=== PATIENT | female | born 1940 | race Caucasian/White ===

== ENCOUNTER 2017-09-18 18:52 | Inpatient (IN) ==
[2017-09-18] MEDS ORDERED: *HR* FentaNYL (PF) 100 MCG/2 ML VIAL IVP ONE ×2 (19:38→20:51)
--- NOTE | 2017-09-18 19:42 | Emergency Department Note ---
Disposition Clinical Impression: Fall Qualifiers: Encounter type: initial encounter Qualified Code(s): W19.XXXA - Unspecified fall, initial encounter Hip pain Qualifiers: Laterality: left Qualified Code(s): M25.552 - Pain in left hip Hip fracture Qualifiers: Encounter type: initial encounter Fracture type: closed Laterality: left Qualified Code(s): S72.002A - Fracture of unspecified part of neck of left femur , initial encounter for closed fracture Disposition: Admitted As Inpatient Condition: Fair Referrals: Ely Dowling CNP [Primary Care Provider] - Forms: ED Satisfaction Letter Time of Disposition: 20:44 Fall HPI - General Chief Complaint: ED Fall Stated Complaint: Fall Time Seen by Provider: 09/18/17 18:58 Source: patient Mode of arrival: EMS Limitations: no limitations Nursing Notes Reviewed: Yes Vital Signs Reviewed: Yes - History of Present Illness HPI Narrative: 77-year-old female on Plavix presents for evaluation after mechanical fall. Patient states that she fell prior to arrival around 5:00 this evening. She states her left knee gave out. Patient notes ground-level fall landing on her left hip. Patient denies any blunt head injury. Patient denies any loss of conscious. Patient states he has had difficulty ambulating with the left hip. Patient notes pain on the lateral aspect with radiation to her back. Patient denies any numbness or tingling of the legs. Patient denies any head neck or back pain. Patient denies any knee pain. Patient denies any prodromal symptoms such as chest pain or shortness of breath. - Related Data Home Medications Medication Instructions Recorded Confirmed Clopidogrel [Plavix] 75 mg PO DAILY 05/09/15 03/20/16 Cyanocobalamin (B-12) [Vitamin B12] 1,000 mcg PO DAILY 05/09/15 03/20/16 Isosorbide MONOnitrate (24 HR) 30 mg PO DAILY 05/09/15 03/20/16 [Imdur] Multivitamin [Flintstones] 1 each PO DAILY 05/09/15 03/20/16 Albuterol Sulfate [Albuterol 2 puff IH Q4H PRN 03/15/16 03/20/16 Inhaler] Budesonide/Formoterol 80/4.5 2 puff IH BID 03/15/16 03/20/16 [Symbicort 80/4.5] Cholecalciferol (Vitamin D3) 50,000 unit PO WE 03/15/16 03/20/16 [Vitamin D3] Esomeprazole Magnesium [Nexium] 40 mg PO DAILY 03/15/16 03/20/16 Gabapentin [Neurontin] 300 mg PO BID 03/15/16 03/20/16 Lidocaine OINT 1 appl TP TID PRN 03/15/16 03/20/16 Montelukast [Singulair] 10 mg PO DAILY 03/15/16 03/20/16 OxyCODONE Immed Rel [Roxicodone 10 10 mg PO Q6H PRN 03/15/16 03/20/16 MG] Quetiapine Fumarate [Seroquel] 100 mg PO HS 03/15/16 03/20/16 Tizanidine HCl [Zanaflex] 4 mg PO HS 03/15/16 03/20/16 Previous Rx's Medication Instructions Recorded Carvedilol [Coreg] 6.25 mg PO BIDWM #60 tablet 03/22/16 Lisinopril-HCTZ 10-12.5 [Prinzide 1 each PO DAILY #30 tablet 03/22/16 10-12.5] Venlafaxine XR (24 HR) [Effexor Xr] 150 mg PO DAILY cap.er.24h 03/22/16 predniSONE [PredniSONE] 60 mg PO DAILY #9 tablet 04/07/16 PredniSONE [Deltasone] 40 mg PO DAILY #10 tablet 09/04/17 Allergies Allergy/AdvReac Type Severity Reaction Status Date / Time Penicillins Allergy Itching Verified 09/18/17 21:25 Tetracycline Allergy Hallucinati Verified 09/18/17 21:25 ng diazepam [From Valium] AdvReac Unconscious Verified 09/18/17 21:25 hydrocodone [From Vicodin] AdvReac See Verified 09/18/17 21:25 Comments ibuprofen AdvReac Nausea Verified 09/18/17 21:25 simvastatin AdvReac See Verified 09/18/17 21:25 Comments ivp dye Allergy Swelling Uncoded 09/18/17 21:25 of Lip/Tongue/Throat All systems ED: reviewed and negative except as stated. Constitutional: Denies: fever Cardiovascular: Denies: chest pain Respiratory: Denies: cough, dyspnea Gastrointestinal: Denies: abdominal pain, nausea, vomiting Fall PMH - Past Medical History Medical history: Reports: COPD, coronary artery disease, CVA, DVT, GERD, hyperlipidemia, hypertension, TIA Surgical history: Reports: appendectomy, cholecystectomy, hysterectomy Psychiatric history: Reports: anxiety, depression LEGAL ANALYST history: Reports: no LEGAL ANALYST history - Social History Smoking Status: Former smoker Alcohol use: Reports: none Drug use: Reports: none Physical Exam - General Limitations: no limitations General appearance: alert, in no apparent distress - Head Head exam: atraumatic, normocephalic, normal inspection - Eye Eye exam: Present: normal appearance, PERRL, EOMI - ENT ENT exam: normal exam, normal oropharynx, mucous membranes moist - Neck Neck exam: Present: normal inspection - Chest Chest inspection: Present: normal inspection, symmetric chest wall rise - Respiratory Respiratory exam: Present: normal lung sounds bilaterally - Cardiovascular Cardiovascular exam: Present: regular rate, normal rhythm. Absent: systolic murmur - Abdominal Exam Abdominal exam: Present: soft, Non-Tender - Expanded Upper Extremity Exam Shoulder exam: Present: normal inspection Arm exam: Present: normal inspection Elbow exam: Present: normal inspection Forearm/Wrist exam: Present: normal inspection Hand exam: Present: normal inspection Vascular exam: Normal: capillary refill - Expanded Lower Extremity Exam Hip/Pelvis exam: Present: normal inspection, tenderness (Lateral aspect of the left hip.), other (Pain with logroll of the left leg). Absent: swelling, ecchymosis, deformity Upper leg exam: Present: normal inspection. Absent: swelling, ecchymosis, deformity Knee exam: Present: normal inspection. Absent: tenderness, swelling, abrasion, ecchymosis Lower leg exam: Present: normal inspection Ankle exam: Present: normal inspection Neurovascular/Tendon exam: Present: normal capillary refill. Absent: pulse deficit, motor deficit, sensory deficit - Back Exam Back exam: Present: normal inspection. Absent: tenderness, vertebral tenderness - Neurological Exam Neurological exam: Present: alert, oriented X3, CN II-XII intact - Skin Skin exam: Present: warm, dry, intact, normal color Course Course Narrative: Patient seen and examined. Patient does have reducible tenderness of the lateral aspect the left hip. Patient is neurovascularly intact. Patient will get CT scan of the head and cervical spine given the age and being on Plavix. Patient also get CT of the pelvis given the high likelihood of probable hip fracture given the patient's body habitus. - Reevaluation(s) Reevaluation #1: Patient seen and examined. Patient left care as discussed. Patient will be admitted to hospital service with orthopedic consult. Patient will be given appropriate pain medication. Patient's neurovascularly intact distally. Time: 20:51 - Consultations Consultation #1: Patient case was discussed with the on-call orthopedic surgeon who states that he will likely fix the hip tomorrow. Recommends nothing by mouth after midnight. Time: 20:43 Vital Signs Temperature 99.2 F 09/18/17 18:57 Pulse Rate 89 09/18/17 18:57 Respiratory Rate 18 09/18/17 18:57 Blood Pressure 227/100 09/18/17 18:57 O2 Sat by Pulse Oximetry 94 09/18/17 18:57 Temperature 99.2 F 09/18/17 18:57 Pulse Rate 89 09/18/17 18:57 Respiratory Rate 18 09/18/17 18:57 Blood Pressure 227/100 09/18/17 18:57 O2 Sat by Pulse Oximetry 94 09/18/17 18:57 Oxygen Delivery Oxygen Delivery Room Air Fall - [facility] Narrative Medical decision making narrative: Patient presents after mechanical fall. Patient does have evidence of hip fracture on CT scan. Patient will need operative intervention. Case was discussed with the on-call orthopedic doctor. Patient will be admitted to the hospitalist service. Patient will get basic labs including type and screen as well as a 12-lead EKG for preop. Recommends nothing by mouth after midnight. It appears that the patient had a mechanical fall and was not related any syncopal episode. - Radiology Data Radiology results reviewed: Yes I reviewed the patient's radiology results. Cervical Spine CT 09/18/17 19:37 IMPRESSION: No acute abnormality of the cervical spine. Degenerative changes at C5-6 and C6-7. D/ / Brad Chase MD / Brad Chase MD Interpreting Provider: Brad Chase MD Femur X-Ray 09/18/17 19:37 IMPRESSION: Acute nondisplaced left subcapital femoral neck fracture. D/ / Lloyd Tao MD / Lloyd Tao MD Interpreting Provider: Lloyd Tao MD Head CT 09/18/17 19:37 IMPRESSION: No acute intracranial abnormality. Senescent changes. D/ / Triston De Jesus / Triston De Jesus Interpreting Provider: Triston De Jesus Pelvis CT 09/18/17 19:37 IMPRESSION: Examination is slightly limited by patient's body habitus, osteopenia and some streak artifact from lumbosacral fusion hardware. Mildly impacted acute subcapital fracture of the proximal left femur. D/ / 09/18/2017 20:38:28 Jaxon Connolly MD / neo Interpreting Provider: Jaxon Connolly MD - EKG Data EKG attestation: Yes I reviewed and interpreted this EKG. EKG shows normal: sinus rhythm Rate: normal Rhythm: NSR Polson/QRS: normal Interpretation: no acute changes, nonspecific ST-T wave changes S.B.A.R. - S.B.A.RRavinder Situation: Demographics Background: Presenting Complaint Assessment: Vital Signs, Patient/Family Expectation Recommendation: Barrier(s) to disposition, Recommendation based on pending studies, treatments, or consults S.B.A.RRavinder Report Given to: Dr. Lyons SRavinderBRavinderAPuma Repor Time: 21:00
--- NOTE | 2017-09-18 20:06 | Emergency Department Note ---
Disposition Clinical Impression: Hip fracture Fall Qualifiers: Encounter type: initial encounter Qualified Code(s): W19.XXXA - Unspecified fall, initial encounter Hip pain Qualifiers: Laterality: left Qualified Code(s): M25.552 - Pain in left hip Disposition: Admitted As Inpatient Condition: Fair Referrals: Ely Dowling CNP [Primary Care Provider] - Forms: ED Satisfaction Letter General Adult HPI - General Chief complaint: ED Fall Stated complaint: Fall Time Seen by Provider: 09/18/17 18:58 Source: patient Mode of arrival: EMS Limitations: no limitations Nursing Notes Reviewed: Yes Vital Signs Reviewed: Yes - History of Present Illness Pain Scale: 8 - Related Data Home Medications Medication Instructions Recorded Confirmed Clopidogrel [Plavix] 75 mg PO DAILY 05/09/15 03/20/16 Cyanocobalamin (B-12) [Vitamin B12] 1,000 mcg PO DAILY 05/09/15 03/20/16 Isosorbide MONOnitrate (24 HR) 30 mg PO DAILY 05/09/15 03/20/16 [Imdur] Multivitamin [Flintstones] 1 each PO DAILY 05/09/15 03/20/16 Albuterol Sulfate [Albuterol 2 puff IH Q4H PRN 03/15/16 03/20/16 Inhaler] Budesonide/Formoterol 80/4.5 2 puff IH BID 03/15/16 03/20/16 [Symbicort 80/4.5] Cholecalciferol (Vitamin D3) 50,000 unit PO WE 03/15/16 03/20/16 [Vitamin D3] Esomeprazole Magnesium [Nexium] 40 mg PO DAILY 03/15/16 03/20/16 Gabapentin [Neurontin] 300 mg PO BID 03/15/16 03/20/16 Lidocaine OINT 1 appl TP TID PRN 03/15/16 03/20/16 Montelukast [Singulair] 10 mg PO DAILY 03/15/16 03/20/16 OxyCODONE Immed Rel [Roxicodone 10 10 mg PO Q6H PRN 03/15/16 03/20/16 MG] Quetiapine Fumarate [Seroquel] 100 mg PO HS 03/15/16 03/20/16 Tizanidine HCl [Zanaflex] 4 mg PO HS 03/15/16 03/20/16 Previous Rx's Medication Instructions Recorded Carvedilol [Coreg] 6.25 mg PO BIDWM #60 tablet 03/22/16 Lisinopril-HCTZ 10-12.5 [Prinzide 1 each PO DAILY #30 tablet 03/22/16 10-12.5] Venlafaxine XR (24 HR) [Effexor Xr] 150 mg PO DAILY cap.er.24h 03/22/16 predniSONE [PredniSONE] 60 mg PO DAILY #9 tablet 04/07/16 PredniSONE [Deltasone] 40 mg PO DAILY #10 tablet 09/04/17 Allergies Allergy/AdvReac Type Severity Reaction Status Date / Time Penicillins Allergy Itching Verified 08/27/16 18:15 Tetracycline Allergy Hallucinati Verified 08/27/16 18:15 ng diazepam [From Valium] AdvReac Unconscious Verified 08/27/16 18:15 hydrocodone [From Vicodin] AdvReac See Verified 08/27/16 18:15 Comments ibuprofen AdvReac Nausea Verified 08/27/16 18:15 simvastatin AdvReac See Verified 08/27/16 18:15 Comments ivp dye Allergy Swelling Uncoded 08/27/16 18:15 of Lip/Tongue/Throat Constitutional: Denies: fever Cardiovascular: Denies: chest pain Respiratory: Denies: cough, dyspnea Gastrointestinal: Denies: abdominal pain, nausea, vomiting Past Medical History - Past Medical History Medical history: Reports: COPD, coronary artery disease, CVA, DVT, GERD, hyperlipidemia, hypertension, TIA Surgical history: Reports: appendectomy, cholecystectomy, hysterectomy Psychiatric history: Reports: anxiety, depression REAL ESTATE PROFESSIONAL history: Reports: no REAL ESTATE PROFESSIONAL history - Social History Smoking Status: Former smoker Smokeless Tobacco Status: No Alcohol use: Reports: none Drug use: Reports: none Physical Exam - General Limitations: no limitations General appearance: alert, in no apparent distress Course Vital Signs Temperature 99.2 F 09/18/17 18:57 Pulse Rate 89 09/18/17 18:57 Respiratory Rate 18 09/18/17 18:57 Blood Pressure 227/100 09/18/17 18:57 O2 Sat by Pulse Oximetry 94 09/18/17 18:57 Temperature 99.2 F 09/18/17 18:57 Pulse Rate 89 09/18/17 18:57 Respiratory Rate 18 09/18/17 18:57 Blood Pressure 227/100 09/18/17 18:57 O2 Sat by Pulse Oximetry 94 09/18/17 18:57 Oxygen Delivery Oxygen Delivery Room Air Attestation Statement - Attestation Attestation: I, Ravinder Yañez MD, personally evaluated this patient and discussed their management with the resident physician. I reviewed the resident's note and agree with the documented findings, medical decision making, and plan of care. 77-year-old female presents to the emergency department with a complaint that she lost her balance and fell about 1.5-2 hours prior to arrival in the emergency department. She states her left knee just locked up causing her to fall onto her left hip. She complains of pain in the left hip and some pain in the left knee. She denies hitting her head. No loss of consciousness. She is on Plavix. No other pain or injury. No loss of feeling in the lower extremity. On examination patient is a well-developed well-nourished well-appearing elderly female in no acute distress. She is alert and oriented 3. There is no cyanosis or diaphoresis. Breath sounds are equal bilaterally. Heart regular rate and rhythm. Abdomen soft and nontender with normal bowel sounds. There is tenderness to palpation over the left hip, primarily over the posterior aspect. No shortening or external rotation. Neurovascular function intact distally with good dorsiflexion and plantarflexion of feet and toes. Sensation symmetrical. CT of the head and cervical spine was negative. CT of the pelvis shows an acute mildly impacted subcapital fracture of the proximal left femur. Dr. Bolanos discussed with the orthopedist solution architect, Dr. Fuentes. The hospitalist, Dr. Lyons, was consulted and accepted admission of the patient.
[2017-09-18 21:29] LABS: Basophils # 0.1 K/mcL (0.0-0.2); Basophils % 0.4 %; Eosinophils # 0.1 K/mcL (0.0-0.6); Eosinophils % 0.6 %; Hematocrit 48.7 % (35.3-44.9); Hemoglobin 15.5 g/dL (11.5-15.4); Immature Granulocytes % 1.1 % (0-4); Lymphocytes # 1.7 K/mcL (0.6-4.6); Mean Corpuscular HGB Conc 31.8 g/dL (31.6-35.5); Mean Corpuscular Hemoglobin 28.8 pg (28.0-33.3); Mean Corpuscular Volume 90.5 fL (83.0-100.0); Mean Platelet Volume 11.3 fL (9.4-12.4); Monocytes # 0.9 K/mcL (0.0-1.3); Neutrophils # 12.5 K/mcL (1.6-8.9); Platelet Count 183 K/mcL (140-400); Red Blood Count 5.38 M/mcL (3.82-4.97); Red Cell Distribution Width 13.2 % (11.5-14.5); Segmented Neutrophils % 80.9 %
[2017-09-18 21:46] LABS: BUN/Creatinine Ratio 15 (6-26); Blood Urea Nitrogen 11 mg/dL (8-23); Calcium 9.1 mg/dL (8.6-10.3); Carbon Dioxide 27 mEq/L (23-29); Chloride 106 mEq/L (98-107); Glucose 133 mg/dL (70-105); Osmolality,Calculated 295 (280-300); Potassium 3.8 mEq/L (3.5-5.1); Sodium 142 mEq/L (136-145); eGFR For African Americans > 60 (> 60); eGFR For Non-African Americans > 60 (> 60)
--- NOTE | 2017-09-18 22:47 | Internal Med History&Physical ---
Date of Encounter: 09/18/17 Time of Encounter: 22:44 Internal Medicine - H&P: HPI Chief complaint: chest pain Admitted From: Emergency Dept Plans for Post Hospital Care: Home History of present illness: Ms. Pickett is a 77 year old female Patient with history of hypertension, COPD, TIA, obesity, CAD, DVT and GERD patient had a mechanical fall she says her knee give out and that she fell no syncope no loss of consciousness she came into the emergency room complaining of her left hip pain CT evaluation shows left hip fracture patient is admitted and already on scheduled for surgery tomorrow denies any chest pain no shortness of breath Past Med Surg Social Fam HX - Past Medical History Medical history: COPD, coronary artery disease, CVA, DVT, GERD, hyperlipidemia, hypertension, TIA Psychiatric history: anxiety, depression - Past Surgical History Surgical History: appendectomy, cholecystectomy, hysterectomy - Social History Smoking Status: Former smoker Smokeless Tobacco Status: No Alcohol use: none Drug use: none - Family History Mother Hx Family Cardiac Disorders: Yes Hx Family Cancer: Yes (colon) Father Hx Family Cardiac Disorders: Yes Daughter Hx Family Cardiac Disorders: Yes (HTN) Internal Medicine - H&P: Meds Clopidogrel [Plavix] 75 mg PO DAILY 05/09/15 [History] Albuterol Sulfate [Albuterol Inhaler] 2 puff IH Q4H PRN 03/15/16 [History] Montelukast [Singulair] 10 mg PO DAILY 03/15/16 [History] Quetiapine Fumarate [Seroquel] 100 mg PO HS 03/15/16 [History] Tizanidine HCl [Zanaflex] 4 mg PO HS 03/15/16 [History] Albuterol Neb [Proventil Neb] 1.5 ml IH Q4H PRN 09/18/17 [History] Carbidopa/Levodopa [Carbidopa-Levo 25-100 mg Odt] 1 tab PO TID 09/18/17 [History ] Carvedilol [Coreg] 6.25 mg PO DAILY 09/18/17 [History] Ergocalciferol (VITAMIN D2) [Vitamin D2] 50,000 unit PO WE 09/18/17 [History] Gabapentin [Neurontin] 400 mg PO TID 09/18/17 [History] Mirtazapine [Remeron] 30 mg PO HS 09/18/17 [History] Morphine Sulfate [Arymo ER] 60 mg PO BID 09/18/17 [History] Nitroglycerin [Nitrostat] 0.4 mg SL Q5M PRN 09/18/17 [History] Umeclidinium Brm/Vilanterol Tr [Anoro Ellipta 62.5-25 Mcg INH] 1 puff IH DAILY 09/18/17 [History] cloNIDine HCl [Clonidine HCl] 0.3 mg PO DAILY 09/18/17 [History] hydroCHLOROthiazide [Hydrochlorothiazide] 25 mg PO DAILY 09/18/17 [History] 3 Allergy/AdvReac Type Severity Reaction Status Date / Time Penicillins Allergy Itching Verified 09/18/17 21:25 Tetracycline Allergy Hallucinati Verified 09/18/17 21:25 ng diazepam [From Valium] AdvReac Unconscious Verified 09/18/17 21:25 hydrocodone [From Vicodin] AdvReac See Verified 09/18/17 21:25 Comments ibuprofen AdvReac Nausea Verified 09/18/17 21:25 simvastatin AdvReac See Verified 09/18/17 21:25 Comments ivp dye Allergy Swelling Uncoded 09/18/17 21:25 of Lip/Tongue/Throat All Systems PM: A 10-system review of systems was performed and is negative for pertinent findings except as documented above in the HPI. - Constitutional Vitals: Temp Pulse Resp BP Pulse Ox 99.2 F 96 20 178/81 93 09/18/17 18:57 09/18/17 22:22 09/18/17 22:22 09/18/17 22:22 09/18/17 22:22 General appearance: Present: mild distress - Head Head exam: Present: atraumatic, normocephalic - Eye Eye exam: Present: PERRL, conjuntiva pink, sclera anicteric Pupils: Present: PERRL - Neck Neck exam general surgery: Present: supple, trachea midline. Absent: lymphadenopathy - Respiratory Respiratory exam: Present: CTAB. Absent: accessory muscle use, rales, rhonchi, wheezes - Cardiovascular Cardiovascular exam: Present: RRR, +S1, +S2. Absent: diastolic murmur, gallop, rubs, systolic murmur - GI/Abdominal GI/Abdominal exam: Present: normal bowel sounds, soft, no peritoneal signs. Absent: distended, tenderness - Extremities Exam Extremities exam: Present: tenderness Internal Med - H&P Results - Labs CBC & Chem 7: 09/18/17 21:05 09/18/17 21:05 - Assessment and plan (1) HTN (hypertension) Current Visit: Yes Status: Chronic Qualifiers: Hypertension type: essential hypertension Qualified Code(s): I10 - Essential (primary) hypertension (2) Depression Current Visit: No Status: Chronic Assessment and plan: Chronic resume home medication Qualifiers: Depression Type: unspecified Qualified Code(s): F32.9 - Major depressive disorder, single episode, unspecified (3) COPD (chronic obstructive pulmonary disease) Current Visit: No Status: Chronic Assessment and plan: Chronic no active wheezing with resume home medication Qualifiers: COPD type: chronic bronchitis Chronic bronchitis type: simple Qualified Code(s): J41.0 - Simple chronic bronchitis (4) Obesity (BMI 30.0-34.9) Current Visit: No Status: Chronic Assessment and plan: Chronic due to excessive caloric intake (5) Hip fracture Current Visit: Yes Status: Acute Assessment and plan: Hip fracture follow mechanical fall orthopedic scheduled for surgery tomorrow Qualifiers: Encounter type: initial encounter Fracture type: closed Laterality: left Qualified Code(s): S72.002A - Fracture of unspecified part of neck of left femur, initial encounter for closed fracture (6) Hypertensive urgency Current Visit: No Status: Acute Assessment and plan: Probably contribution of for acute pain we will resume home medication - Time Spent With Patient Total time spent is greater than 50% in coordination of care (as documented) at patient's floor/unit and/or counseling patient:
[2017-09-18] MEDS ORDERED: Naloxone 0.4 MG/ML INJ IVP PRN (22:50)
[2017-09-18] MEDS ORDERED: Acetaminophen 325 MG TABLET PO PRN (22:50)
[2017-09-19] MEDS: traMADol 50 MG TABLET PO PRN ×3 (00:15→18:29)
[2017-09-19] MEDS: 0.9 % Sodium Chloride 1,000 ML IVC SCH (00:15)
[2017-09-19 00:21] LABS: Bilirubin,Urine Negative (Negative); Blood,Urine Moderate (Negative); Clarity,Urine Clear (Clear); Color,Urine Yellow (Yellow); Glucose,Urine (UA) Normal (Normal); Ketones,Urine Negative (Negative); Leukocyte Esterase,Urine Negative (Negative); Nitrite,Urine Negative (Negative); Protein,Urine Negative (Neg-Trace); Specific Gravity,Urine 1.014 (1.010-1.025); Urobilinogen,Urine Normal (Normal)
[2017-09-19 00:42] LABS: Bacteria,Urine Few per hpf (None-Few); WBC,Urine 0-3 per hpf (0-3)
[2017-09-19] MEDS: *HR* Morphine Sulfate SR (12 HR) 30 MG TABLET.ER PO SCH ×3 (01:29→20:19)
[2017-09-19 02:13] LABS: Hemoglobin 15.2 g/dL (11.5-15.4); Mean Corpuscular Hemoglobin 29.2 pg (28.0-33.3); Mean Corpuscular Volume 88.3 fL (83.0-100.0); Mean Platelet Volume 11.4 fL (9.4-12.4); Platelet Count 175 K/mcL (140-400); Red Blood Count 5.21 M/mcL (3.82-4.97); Red Cell Distribution Width 13.1 % (11.5-14.5)
[2017-09-19 02:32] LABS: Alanine Aminotransferase 18 Units/L (7-52); Albumin/Globulin Ratio 1.6 (1.1-2.2); Alkaline Phosphatase 74 Units/L (34-104); Aspartate Amino Transferase 18 Units/L (13-39); BUN/Creatinine Ratio 18 (6-26); Bilirubin,Total 0.5 mg/dL (0.3-1.0); Blood Urea Nitrogen 12 mg/dL (8-23); Calcium 9.2 mg/dL (8.6-10.3); Carbon Dioxide 24 mEq/L (23-29); Chloride 105 mEq/L (98-107); Chol/HDL Ratio 5.1 (0-4.9); Cholesterol 164 mg/dL (< 200); Globulin 2.5 g/dL (2.4-3.5); Glucose 159 mg/dL (70-105); HDL Cholesterol 32 mg/dL (40-59); LDL Cholesterol,Calculated 94 mg/dL (0-99); Magnesium 1.8 mg/dL (1.6-2.6); Osmolality,Calculated 293 (280-300); Potassium 3.3 mEq/L (3.5-5.1); Sodium 140 mEq/L (136-145); Total Protein 6.5 g/dL (6.4-8.9); Triglycerides 192 mg/dL (< 150); eGFR For African Americans > 60 (> 60); eGFR For Non-African Americans > 60 (> 60)
[2017-09-19] MEDS: Ketorolac 30 MG/ML VIAL IVP PRN ×2 (04:08→12:22)
[2017-09-19] MEDS ORDERED: *HR* HYDROmorphone 2 MG TABLET PO ONE (05:34)
[2017-09-19] MEDS ORDERED: *HR* Enoxaparin 40 MG/0.4 ML SYRINGE SQ SCH (06:00)
--- NOTE | 2017-09-19 07:33 | Orthopedic Consult Note ---
Date of Encounter: 09/19/17 Time of Encounter: 07:31 Assessment and Plan (1) Hip fracture Current Visit: Yes Status: Acute I did have a long discussion with the patient regarding the diagnosis. She has a left subcapital femoral neck fracture. Recommendation is percutaneous screw fixation in hopes of stabilizing the fracture in relieving her pain. The risks discussed included but were not limited to stiffness, bleeding, infection, blood clots, damage to neurovascular structures, tendons, ligaments, and bone. Also discussed was the risk of continued symptoms and possible need for further procedures. I did discuss the anesthesia risks including stroke, heart attack, and . She is aware of the risk of malunion, nonunion, avascular necrosis, and the need for prosthetic replacement in the future. I did discuss this fall with the patient in simple terms and she wished to proceed and consent was obtained. Qualifiers: Encounter type: initial encounter Fracture type: closed Laterality: left Qualified Code(s): S72.002A - Fracture of unspecified part of neck of left femur, initial encounter for closed fracture History of Present Illness HPI: Ms. Pickett is a 77 year old female who is an independent ambulator. She said her left knee gave out causing her to fall yesterday which resulted in left hip and groin pain. She seen in the emergency department where imaging studies revealed a nondisplaced subcapital femoral neck fracture. She is admitted to the hospitalist with anticipation of needing hip fixation. I am consulted to assist in the evaluation and management of the patient. On my evaluation the patient complains of isolated achy pain localized to the left hip and groin region. She denies any other pain. No associated numbness or tingling. Pain is worse with movement and better with rest. No other modifying factors. Past Med Surg Social Fam HX - Past Medical History Medical history: COPD, coronary artery disease, CVA, DVT, GERD, hyperlipidemia, hypertension, TIA Psychiatric history: anxiety, depression - Past Surgical History Surgical History: appendectomy, cholecystectomy, hysterectomy - Social History Smoking Status: Former smoker Smokeless Tobacco Status: No Alcohol use: none Drug use: none - Family History Mother Living Status: Age at : 64 Cause of : cancer, heart Hx Family Cardiac Disorders: Yes Hx Family Cancer: Yes (colon) Father Living Status: Age at : 59 Cause of : mi Hx Family Cardiac Disorders: Yes Daughter Hx Family Cardiac Disorders: Yes (HTN) Medications and Allergies Clopidogrel [Plavix] 75 mg PO DAILY 05/09/15 [History] Albuterol Sulfate [Albuterol Inhaler] 2 puff IH Q4H PRN 03/15/16 [History] Montelukast [Singulair] 10 mg PO DAILY 03/15/16 [History] Quetiapine Fumarate [Seroquel] 100 mg PO HS 03/15/16 [History] Tizanidine HCl [Zanaflex] 4 mg PO HS 03/15/16 [History] Albuterol Neb [Proventil Neb] 1.5 ml IH Q4H PRN 09/18/17 [History] Carbidopa/Levodopa [Carbidopa-Levo 25-100 mg Odt] 1 tab PO TID 09/18/17 [History ] Carvedilol [Coreg] 6.25 mg PO DAILY 09/18/17 [History] Ergocalciferol (VITAMIN D2) [Vitamin D2] 50,000 unit PO WE 09/18/17 [History] Gabapentin [Neurontin] 400 mg PO TID 09/18/17 [History] Mirtazapine [Remeron] 30 mg PO HS 09/18/17 [History] Morphine Sulfate [Arymo ER] 60 mg PO BID 09/18/17 [History] Nitroglycerin [Nitrostat] 0.4 mg SL Q5M PRN 09/18/17 [History] Umeclidinium Brm/Vilanterol Tr [Anoro Ellipta 62.5-25 Mcg INH] 1 puff IH DAILY 09/18/17 [History] cloNIDine HCl [Clonidine HCl] 0.3 mg PO DAILY 09/18/17 [History] hydroCHLOROthiazide [Hydrochlorothiazide] 25 mg PO DAILY 09/18/17 [History] 3 Allergy/AdvReac Type Severity Reaction Status Date / Time Penicillins Allergy Itching Verified 09/18/17 21:25 Tetracycline Allergy Hallucinati Verified 09/18/17 21:25 ng diazepam [From Valium] AdvReac Unconscious Verified 09/18/17 21:25 hydrocodone [From Vicodin] AdvReac See Verified 09/18/17 21:25 Comments ibuprofen AdvReac Nausea Verified 09/18/17 21:25 simvastatin AdvReac See Verified 09/18/17 21:25 Comments ivp dye Allergy Swelling Uncoded 09/18/17 21:25 of Lip/Tongue/Throat All Systems Reviewed: The remainder of the systems were reviewed and are negative Physical Exam - Constitutional Vitals: Temp Pulse Resp BP Pulse Ox 98.2 F 91 18 124/66 92 09/19/17 04:57 09/19/17 04:24 09/19/17 04:24 09/19/17 04:24 09/19/17 04:24 Constitutional -Vitals reviewed -The patient is well developed and well nourished. -Mood is pleasant. -The patient is well groomed. Psychiatric -The patient is fully alert and oriented x 3. Respiratory: -Respiratory effort normal Abdomen: -Soft abdomen -Non tender -Non distended: Left upper extremity: -No deformities. The overlying skin is intact. No obvious signs of acute trauma. -No tenderness to palpation throughout. -No significant pain with passive motion of the shoulder, elbow, wrist, and fingers within the limits of the bed. -Able to make an "OK" sign, cross the index and long fingers, and extend the thumb. -Sensation grossly intact to light touch throughout the median, radial, and ulnar distributions. -Radial pulse is present; Fingers have good capillary refill. Right upper extremity: -No deformities. The overlying skin is intact. No obvious signs of acute trauma. -No tenderness to palpation throughout. -No significant pain with passive motion of the shoulder, elbow, wrist, and fingers within the limits of the bed. -Able to make an "OK" sign, cross the index and long fingers, and extend the thumb. -Sensation grossly intact to light touch throughout the median, radial, and ulnar distributions. -Radial pulse is present; Fingers have good capillary refill. Left lower extremity: -No deformities. The overlying skin is intact. No obvious signs of acute trauma. -There is tenderness in the groin region as well as the proximal lateral thigh. -I did not range the hip due to the known fracture. -No tenderness along the distal thigh, leg, ankle, foot, or toes. -Able to dorsiflex and plantarflex the ankle and toes. -Sensation is grossly intact to light touch throughout the sural, saphenous, superficial peroneal, and deep peroneal distributions. -Toes have good capillary refill. Right lower extremity: -No deformities. The overlying skin is intact. No obvious signs of acute trauma. -No tenderness to palpation throughout. -No pain with passive motion of the hip, knee, ankle, and toes within the limits of the bed. -No pain with axial loading of the thigh. -Able to dorsiflex and plantarflex the ankle and toes. -Sensation is grossly intact to light touch throughout the sural, saphenous, superficial peroneal, and deep peroneal distributions. -Toes have good capillary refill. Diagnostic Imaging: I did personally review and interpret the CT scan of the left hip which shows a subcapital impacted femoral neck fracture. Results - Labs Result Diagrams: 09/19/17 01:25 09/19/17 01:25 Labs: Abnormal lab results WBC 14.3 K/mcL (4.3-11.1) H 09/19/17 01:25 RBC 5.21 M/mcL (3.82-4.97) H 09/19/17 01:25 Hct 46.0 % (35.3-44.9) H 09/19/17 01:25 Neutrophils # 12.5 K/mcL (1.6-8.9) H 09/18/17 21:05 Potassium 3.3 mEq/L (3.5-5.1) L 09/19/17 01:25 Glucose 159 mg/dL (70-105) H 09/19/17 01:25 Triglycerides 192 mg/dL (< 150) H 09/19/17 01:25 VLDL Cholesterol, Calc 38 mg/dL (< 31) H 09/19/17 01:25 HDL Cholesterol 32 mg/dL (40-59) L 09/19/17 01:25 Cholesterol/HDL Ratio 5.1 (0-4.9) H 09/19/17 01:25 Urine Blood Moderate (Negative) H 09/19/17 00:03 Urine Microscopic RBC 5-15 per hpf (0-3) H 09/19/17 00:03 H & H 09/19/17 Range/Units 01:25 Hgb 15.2 (11.5-15.4) g/dL Hct 46.0 H (35.3-44.9) % All other labs normal. Consult Discharge Plan - Plan Referrals: Ely Dowling, TONO [Primary Care Provider] -
[2017-09-19] MEDS ORDERED: hydroCHLOROthiazide 25 MG TABLET PO SCH (09:00)
[2017-09-19] MEDS ORDERED: *HR* Morphine Sulfate SR (12 HR) 30 MG TABLET.ER PO SCH (09:00)
[2017-09-19] MEDS: Gabapentin 400 MG CAPSULE PO SCH ×3 (09:06→20:19)
[2017-09-19] MEDS: cloNIDine HCl 0.1 MG TABLET PO SCH ×3 (09:06→20:19)
[2017-09-19] MEDS: Carbidopa/Levodopa 25/100 TABLET PO SCH ×3 (09:06→20:20)
--- NOTE | 2017-09-19 09:54 | Internal Med Progress Note ---
<Mary Kate Beck - Last Filed: 09/19/17 14:36> Date of Encounter: 09/19/17 Time of Encounter: 09:45 - Assessment and plan (1) Hip fracture Current Visit: Yes Status: Acute Assessment and plan: Femoral x-ray demonstrated acute nondisplaced femoral neck fracture. Patient fell yesterday while at home after her knee locked up. She denied hitting her head or losing consciousness. Head and cervical spine CT negative for fracture or bleed -Ortho consulted and taking patient to OR today -pain is controlled with the patient's home medication dose of morphine -PT/OT ordered -social work consulted for discharge plans to rehab, patient prefers to go to [address] [place] [address] Qualifiers: Encounter type: initial encounter Fracture type: closed Laterality: left Qualified Code(s): S72.002A - Fracture of unspecified part of neck of left femur, initial encounter for closed fracture (2) CAD (coronary artery disease) Current Visit: Yes Status: Acute Assessment and plan: History of known CAD taking Plavix -continue Plavix Qualifiers: Qualified Code(s): I25.10 - Atherosclerotic heart disease of [place] coronary artery without angina pectoris (3) CVA (cerebral vascular accident) Current Visit: Yes Status: Acute Assessment and plan: History of known CVA Qualifiers: Qualified Code(s): I63.9 - Cerebral infarction, unspecified (4) Parkinson disease Current Visit: Yes Status: Acute Assessment and plan: History of known Parkinson's taking carbidopa/ levodopa -continue home medication (5) History of DVT (deep vein thrombosis) Current Visit: Yes Status: Acute Assessment and plan: History of DVT's in right lower extremity. She reports that since right knee replacement she is not had a DVT. She is no longer on anticoagulation with Coumadin. She has also had a PE but this was secondary to back surgery for which she was in mobile for a long period of time. -Will provide DVT prophylaxis (6) COPD (chronic obstructive pulmonary disease) Current Visit: No Status: Chronic Assessment and plan: History of COPD SPO2 well on room air -continue bronchodilators Qualifiers: COPD type: chronic bronchitis Chronic bronchitis type: simple Qualified Code(s): J41.0 - Simple chronic bronchitis (7) HTN (hypertension) Current Visit: Yes Status: Chronic Assessment and plan: History of hypertension taking hydrochlorothiazide, coreg, clonidine blood pressure is stable -continue home medications Qualifiers: Hypertension type: essential hypertension Qualified Code(s): I10 - Essential (primary) hypertension (8) DVT prophylaxis Current Visit: Yes Status: Acute Assessment and plan: Lovenox sq (9) Leukocytosis Current Visit: Yes Status: Acute Assessment and plan: Elevated WBC likely secondary to trauma and not acute infection WBC 14.3 (15.4) afebrile -Will continue to monitor CBC -blood culture pending Qualifiers: Qualified Code(s): D72.829 - Elevated white blood cell count, unspecified - Time Spent With Patient Total time spent is greater than 50% in coordination of care (as documented) at patient's floor/unit and/or counseling patient: - Subjective Interval history: 77yo female PMH CVA, DVT, COPD, CAD, Gerd, Parkinson's who presented to the ED after a fall at home. She reported that her knee locked up and she fell without hitting her head or losing consciousness. In the ED femoral x-ray demonstrated acute nondisplaced femoral neck fracture. Ortho was consulted and is taking the patient to the OR today. Upon my examination the patient reported that her pain was well-controlled intolerable with her home dose of morphine that we were giving her. She denied chest pain, shortness of breath, fever, chills, nausea, vomiting. She had no other complaints. - Constitutional Vitals: Temp Pulse Resp BP Pulse Ox 98.2 F 74 16 150/79 96 09/19/17 07:35 09/19/17 07:35 09/19/17 07:35 09/19/17 07:35 09/19/17 07:35 General appearance: Present: mild distress Exam: Gen.: Vitals noted. No acute distress. AAOx3 HEENT: oropharynx clear, Normocephalic, atraumatic Cardiac: RRR, no murmur, +S1/S2 Pulmonary: CTA bilaterally, no wheezes, rales or rhonchi, equal chest expansion Abdomen: soft, nontender, Bowel sounds noted, no guarding MSK: ROM decreased in left lower extremity, no joint swelling noted. Tenderness to left hip Extremities: no BLE edema, nontender calf, no cyanosis or clubbing Neuro: A&Ox3, moves all extremities, no focal deficits Psych: Appropriate mood and behavior Internal Medicine: Result - Labs CBC & Chem 7: 09/19/17 01:25 09/19/17 01:25 Labs: Short CBC 09/19/17 Range/Units 01:25 WBC 14.3 H (4.3-11.1) K/mcL Hgb 15.2 (11.5-15.4) g/dL Hct 46.0 H (35.3-44.9) % Plt Count 175 (140-400) K/mcL BMP 09/19/17 01:25 Sodium 140 Potassium 3.3 L Chloride 105 Carbon Dioxide 24 BUN 12 Creatinine 0.68 Glucose 159 H Calcium 9.2 Liver Function 09/19/17 Range/Units 01:25 Total Bilirubin 0.5 (0.3-1.0) mg/dL AST 18 (13-39) Units/L ALT 18 (7-52) Units/L Alkaline Phosphatase 74 (34-104) Units/L Albumin 4.0 (3.5-5.7) g/dL Urine 09/19/17 Range/Units 00:03 Urine Color Yellow (Yellow) Urine Clarity Clear (Clear) Urine pH 7.0 (5.0-8.0) pH Units Ur Specific [place] 1.014 (1.010-1.025) Urine Protein Negative (Neg-Trace) mg/dL Urine Glucose (UA) Normal (Normal) mg/dL Consult Discharge Plan - Plan Referrals: Ely Dowling, TONO [Primary Care Provider] - <Zia Mendoza - Last Filed: 09/19/17 20:24> Date of Encounter: 09/19/17 - Assessment and plan (1) COPD (chronic obstructive pulmonary disease) Current Visit: No Status: Chronic Qualifiers: COPD type: chronic bronchitis Chronic bronchitis type: simple Qualified Code(s): J41.0 - Simple chronic bronchitis (2) Hip fracture Current Visit: Yes Status: Acute Qualifiers: Encounter type: initial encounter Fracture type: closed Laterality: left Qualified Code(s): S72.002A - Fracture of unspecified part of neck of left femur, initial encounter for closed fracture (3) HTN (hypertension) Current Visit: Yes Status: Chronic Qualifiers: Hypertension type: essential hypertension Qualified Code(s): I10 - Essential (primary) hypertension (4) CAD (coronary artery disease) Current Visit: Yes Status: Acute Qualifiers: Qualified Code(s): I25.10 - Atherosclerotic heart disease of [place] coronary artery without angina pectoris (5) CVA (cerebral vascular accident) Current Visit: Yes Status: Acute Qualifiers: Qualified Code(s): I63.9 - Cerebral infarction, unspecified (6) Parkinson disease Current Visit: Yes Status: Acute (7) History of DVT (deep vein thrombosis) Current Visit: Yes Status: Acute (8) DVT prophylaxis Current Visit: Yes Status: Acute (9) Leukocytosis Current Visit: Yes Status: Acute Qualifiers: Qualified Code(s): D72.829 - Elevated white blood cell count, unspecified - Time Spent With Patient Total time spent is greater than 50% in coordination of care (as documented) at patient's floor/unit and/or counseling patient: - Constitutional Vitals: Temp Pulse Resp BP Pulse Ox 97.8 F 69 18 136/64 96 09/19/17 18:52 09/19/17 18:52 09/19/17 18:52 09/19/17 18:52 09/19/17 18:52 Internal Medicine: Result - Labs CBC & Chem 7: 09/19/17 01:25 09/19/17 01:25 Labs: Short CBC 09/19/17 Range/Units 01:25 WBC 14.3 H (4.3-11.1) K/mcL Hgb 15.2 (11.5-15.4) g/dL Hct 46.0 H (35.3-44.9) % Plt Count 175 (140-400) K/mcL BMP 09/19/17 01:25 Sodium 140 Potassium 3.3 L Chloride 105 Carbon Dioxide 24 BUN 12 Creatinine 0.68 Glucose 159 H Calcium 9.2 Liver Function 09/19/17 Range/Units 01:25 Total Bilirubin 0.5 (0.3-1.0) mg/dL AST 18 (13-39) Units/L ALT 18 (7-52) Units/L Alkaline Phosphatase 74 (34-104) Units/L Albumin 4.0 (3.5-5.7) g/dL Urine 09/19/17 Range/Units 00:03 Urine Color Yellow (Yellow) Urine Clarity Clear (Clear) Urine pH 7.0 (5.0-8.0) pH Units Ur Specific [place] 1.014 (1.010-1.025) Urine Protein Negative (Neg-Trace) mg/dL Urine Glucose (UA) Normal (Normal) mg/dL - Impressions Impressions Fluoroscopy 09/19/17 16:16 IMPRESSION: Intraprocedural fluoroscopic spot images as above. See separate procedure report for more information. D/ / Triston De Jesus / Triston De Jesus Interpreting Provider: Triston De Jesus Hip X-Ray 09/19/17 16:37 IMPRESSION: Anatomic alignment of the left hip after fracture repair D/ / Walter Horvath MD / Walter Horvath MD Interpreting Provider: Walter Horvath MD - Attending Attestation I performed a history and physical examination of the patient and discussed his/ her management with the resident. I reviewed the residents note and agree with the documented findings and plan of care.
[2017-09-19] MEDS ORDERED: (Anoro Ellipta 62.5-2) IH SCH (10:00)
[2017-09-19] MEDS ORDERED: Potassium Chloride 40 MEQ, Lidocaine 1% 2 ML in D5% in Water 500 ML IVPB ONE (10:01)
--- NOTE | 2017-09-19 14:51 | Anesthesia Evaluation PreOp ---
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), TIA, Other (A/D) Other Medical History: GERD Anesthesia History: No Prior Anesthetic Complications, Past Anesthesia ( appendectomy, cholecystectomy, hysterectomy) : No Alcohol Use: none Drug use: none Medications and Allergies Clopidogrel [Plavix] 75 mg PO DAILY 05/09/15 [History] Albuterol Sulfate [Albuterol Inhaler] 2 puff IH Q4H PRN 03/15/16 [History] Montelukast [Singulair] 10 mg PO DAILY 03/15/16 [History] Quetiapine Fumarate [Seroquel] 100 mg PO HS 03/15/16 [History] Tizanidine HCl [Zanaflex] 4 mg PO HS 03/15/16 [History] Albuterol Neb [Proventil Neb] 1.5 ml IH Q4H PRN 09/18/17 [History] Carbidopa/Levodopa [Carbidopa-Levo 25-100 mg Odt] 1 tab PO TID 09/18/17 [History ] Carvedilol [Coreg] 6.25 mg PO DAILY 09/18/17 [History] Ergocalciferol (VITAMIN D2) [Vitamin D2] 50,000 unit PO WE 09/18/17 [History] Gabapentin [Neurontin] 400 mg PO TID 09/18/17 [History] Mirtazapine [Remeron] 30 mg PO HS 09/18/17 [History] Morphine Sulfate [Arymo ER] 60 mg PO BID 09/18/17 [History] Nitroglycerin [Nitrostat] 0.4 mg SL Q5M PRN 09/18/17 [History] Umeclidinium Brm/Vilanterol Tr [Anoro Ellipta 62.5-25 Mcg INH] 1 puff IH DAILY 09/18/17 [History] cloNIDine HCl [Clonidine HCl] 0.3 mg PO DAILY 09/18/17 [History] hydroCHLOROthiazide [Hydrochlorothiazide] 25 mg PO DAILY 09/18/17 [History] 3 Allergy/AdvReac Type Severity Reaction Status Date / Time Penicillins Allergy Itching Verified 09/18/17 21:25 Tetracycline Allergy Hallucinati Verified 09/18/17 21:25 ng diazepam [From Valium] AdvReac Unconscious Verified 09/18/17 21:25 hydrocodone [From Vicodin] AdvReac See Verified 09/18/17 21:25 Comments ibuprofen AdvReac Nausea Verified 09/18/17 21:25 simvastatin AdvReac See Verified 09/18/17 21:25 Comments ivp dye Allergy Swelling Uncoded 09/18/17 21:25 of Lip/Tongue/Throat - Meds/Allergy Pre-op Review Medications Reviewed: Yes Allergies Reviewed: Yes Beta Blockers on Current Med List: Yes If Beta Blockers taken, Date/Time (Last Dose taken): 09:05 09/19/17 Anesthesia Results - Labs 09/19/17 01:25 09/19/17 01:25 Stress 03/15/16 EF. 70% HTN throughout stress No ischemia - Imaging EKG: report reviewed (SR with sinus arrhythmia, Consider lateral Iscemia) Anesthesia Exam Vital Signs/O2 Sat, Most Current Temp Pulse Resp BP Pulse Ox 98.0 F 80 16 105/76 94 09/19/17 10:24 09/19/17 10:24 09/19/17 10:24 09/19/17 10:24 09/19/17 10:24 - HEENT Pupil (Motor): Pupils equal, EOMI Mallampati: IV Teeth: Normal Oral Opening: Greater than 3 - [employer] LOC: Oriented [employer] Motor: Normal RUE, Normal LUE, Normal RLE, Normal LLE, Normal Face [employer] Sensory: Normal: RUE, LUE, RLE, LLE, Face - Cardiac Rhythm: Regular Murmur: None JVD: No Carotid Bruit: No - Pulmonary Breath Sounds: bilateral Clear Respiratory Effort: Symmetrical Anesthesia Assess/Plan ASA Score: 3 Modified Delores Scale for Level of Consciousness: Cooperative, oriented, and tranquil Anesthetic Plan: General Autologous Blood: Yes Monitoring Plan: Standard Monitors Recovery Plan: PACU
[2017-09-19] MEDS ORDERED: *HR* FentaNYL (PF) 100 MCG/2 ML VIAL ONE (15:50)
[2017-09-19] MEDS ORDERED: *HR* Propofol 200 MG/20 ML VIAL IVP ONE (15:50)
[2017-09-19] MEDS ORDERED: Ondansetron 4 MG/2 ML VIAL ONE (15:51)
[2017-09-19] MEDS ORDERED: Dexamethasone 4 MG/ML VIAL ONE (15:51)
[2017-09-19] MEDS ORDERED: Lidocaine -MPF 2% 2 ML VIAL ONE (15:51)
[2017-09-19] MEDS ORDERED: *HR* Succinylcholine 200 MG/10 ML VIAL IVP ONE (15:51)
[2017-09-19] MEDS ORDERED: Lidocaine -MPF 4% 5 ML AMPUL ONE (15:51)
[2017-09-19] MEDS ORDERED: EPHEDrine 50 MG/ML VIAL ONE (16:10)
[2017-09-19] MEDS ORDERED: Clindamycin 900 MG/50 ML 900 MG/50 ML IV.SOLN IVPB ONE (16:17)
[2017-09-19] MEDS ORDERED: *HR* Atropine Sulfate 8 MG/20 ML VIAL IVP ONE (16:20)
[2017-09-19] MEDS ORDERED: Acetaminophen IV 1,000 MG/100 ML INFUS..BTL ONE ×2 (16:26→16:29)
--- NOTE | 2017-09-19 16:39 | Orthopedic Operative Note ---
Date of procedure: 09/19/17 Pre-op diagnosis: Nondisplaced left hip fracture Post-op diagnosis: same Procedure: Procedure: Left hip open pinning Estimated blood loss: 10 cc Hardware:Synthes 7.3 cannulated metal screws 2 80 mm each Operative procedure: The patient was brought to the operating room and placed on the operating room table. After general anesthesia was administered the well leg was place in the well leg dee and the operative leg was placed in the fracture leg dee. All pressure points were padded appropriately. The operative extremity was prepped and draped in the sterile surgical fashion patient received IV antibiotic prior to skin incision. Using fluoroscopic assistance a guidepin was placed through a small stab incision on the lateral aspect of the femur. Placed through the lateral femur across the fracture site into the femoral head addition of the guidepin was found to be acceptable in AP and lateral planes. A second guidepin was placed in an appropriate position and confirmed with fluoroscopy. Two 7.3 cannulated screws were placed over the guidepins, and their position was confirmed with fluoroscopy as well. Hardware as well as fracture site was well reduced and well positioned. Wound was irrigated and closed with a 2-0 Monocryl suture The patient was placed in a sterile dressing The patient was extubated and transferred to the recovery room in stable condition. Anesthesia: GETA Surgeon: Martínez Cleaning Was there an bilingual administrative assistant present: No Estimated blood loss (cc): 10 Condition: stable Disposition: PACU
[2017-09-19] MEDS ORDERED: *HR* FentaNYL (PF) 100 MCG/2 ML VIAL IVP PRN (16:42)
[2017-09-19] MEDS ORDERED: *HR* Promethazine 25 MG/ML VIAL IVP PRN (16:42)
[2017-09-19] MEDS ORDERED: *HR* Nalbuphine 20 MG/ML AMPUL ONE (16:51)
--- NOTE | 2017-09-19 17:31 | Anesthesia Evaluation Post Op ---
Date of Encounter: 09/19/17 Time of Encounter: 17:31 - Vital Signs Vital Signs: Vital Signs/O2 Sat, Most Current Temp Pulse Resp BP Pulse Ox 97.9 F 79 16 102/84 100 09/19/17 17:27 09/19/17 17:27 09/19/17 17:27 09/19/17 17:27 09/19/17 17:27 - Lungs Lungs: Clear Ascult./Percussion - Airway Airway: Non-obstructed - Cardiovascular Regular Rate - Mental Status Mental Status: Alert & Oriented, Answers Appropriately - Pain Pain Scale: 0 Pain Scale used: Numeric (1 - 10) - Nausea Vomiting Nausea Vomiting: Not Present - Hydration Hydration: Ice chips, Has not voided - Discharge PostOp Status: Transfer Patient to floor
[2017-09-19] MEDS ORDERED: 0.9 % Sodium Chloride 1,000 ML IVC SCH (17:48)
[2017-09-19] MEDS ORDERED: Albuterol 2.5 MG/3 ML NEBULIZER IH PRN ×2 (17:48)
[2017-09-19] MEDS ORDERED: Ketorolac 30 MG/ML VIAL IVP PRN (17:48)
[2017-09-19] MEDS ORDERED: Acetaminophen 325 MG TABLET PO PRN (17:48)
[2017-09-19] MEDS ORDERED: Clindamycin 900 MG/50 ML 900 MG/50 ML IV.SOLN IVPB SCH (17:48)
[2017-09-19] MEDS ORDERED: Naloxone 0.4 MG/ML INJ IVP PRN ×2 (17:48)
[2017-09-19] MEDS: tiZANidine 4 MG TABLET PO SCH (20:19)
[2017-09-19] MEDS: Mirtazapine 15 MG TABLET PO SCH (20:19)
[2017-09-19] MEDS ORDERED: tiZANidine 4 MG TABLET PO SCH (21:00)
[2017-09-19] MEDS ORDERED: Mirtazapine 15 MG TABLET PO SCH (21:00)
[2017-09-20] MEDS: Clindamycin 900 MG/50 ML 900 MG/50 ML IV.SOLN IVPB SCH ×2 (00:12→08:02)
[2017-09-20] MEDS: 0.9 % Sodium Chloride 1,000 ML IVC SCH (04:44)
[2017-09-20] MEDS: *HR* Enoxaparin 40 MG/0.4 ML SYRINGE SQ SCH (05:25)
[2017-09-20 07:05] LABS: Basophils % 0.3 %; Eosinophils % 0.1 %; Hematocrit 42.5 % (35.3-44.9); Hemoglobin 13.7 g/dL (11.5-15.4); Immature Granulocytes % 0.3 % (0-4); Lymphocytes # 0.8 K/mcL (0.6-4.6); Lymphocytes % 10.4 %; Mean Corpuscular HGB Conc 32.2 g/dL (31.6-35.5); Mean Corpuscular Volume 89.9 fL (83.0-100.0); Mean Platelet Volume 11.3 fL (9.4-12.4); Monocytes # 0.4 K/mcL (0.0-1.3); Monocytes % 5.7 %; Neutrophils # 6.1 K/mcL (1.6-8.9); Platelet Count 153 K/mcL (140-400); Red Blood Count 4.73 M/mcL (3.82-4.97); Red Cell Distribution Width 13.2 % (11.5-14.5); Segmented Neutrophils % 83.2 %
[2017-09-20] MEDS: hydroCHLOROthiazide 25 MG TABLET PO SCH (07:10)
[2017-09-20 07:23] LABS: BUN/Creatinine Ratio 19 (6-26); Blood Urea Nitrogen 14 mg/dL (8-23); Calcium 8.6 mg/dL (8.6-10.3); Carbon Dioxide 25 mEq/L (23-29); Chloride 107 mEq/L (98-107); Glucose 151 mg/dL (70-105); Osmolality,Calculated 293 (280-300); Sodium 140 mEq/L (136-145); eGFR For African Americans > 60 (> 60); eGFR For Non-African Americans > 60 (> 60)
[2017-09-20] MEDS: cloNIDine HCl 0.1 MG TABLET PO SCH ×3 (08:01→19:34)
[2017-09-20] MEDS: *HR* Morphine Sulfate SR (12 HR) 30 MG TABLET.ER PO SCH ×2 (08:02→19:34)
[2017-09-20] MEDS: Gabapentin 400 MG CAPSULE PO SCH ×3 (08:02→19:34)
[2017-09-20] MEDS: Carbidopa/Levodopa 25/100 TABLET PO SCH ×3 (08:02→19:34)
--- NOTE | 2017-09-20 08:55 | Orthopedics Progress Note ---
Date of Encounter: 09/20/17 Time of Encounter: 08:54 Subjective Interval history: Patient was seen this morning doing well without complaints. Afebrile vital signs stable. Operative extremity: Neurovascularly intact Dressing clean dry and intact Calves nontender Assessment and plan: Continue with postoperative care Stable for discharge Objective Vital signs: Vital Signs Temp Pulse Resp BP Pulse Ox 09/20/17 08:06 97.5 F L 79 17 110/57 94 09/20/17 05:25 97.4 F L 81 15 104/63 93 09/19/17 23:47 97.6 F 70 14 115/60 94 09/19/17 20:00 97.9 F 69 17 116/62 96 09/19/17 18:52 97.8 F 69 18 136/64 96 09/19/17 18:25 97.1 F L 71 16 147/79 96 09/19/17 17:43 96.6 F L 74 17 148/81 91 09/19/17 17:27 97.9 F 79 16 102/84 100 09/19/17 17:20 97.5 F L 86 16 129/78 100 09/19/17 17:10 97.5 F L 79 16 132/73 100 09/19/17 17:00 97.4 F L 78 16 147/76 100 09/19/17 10:24 98.0 F 80 16 105/76 94 Intake and Output 09/19/17 09/20/17 09/20/17 23:59 07:59 15:59 Intake Total 1200 / 1200 570 / 570 Output Total 1255 / 1255 Balance -55 / -55 570 / 570 Intake: IV Fluids 1000 / 1000 570 / 570 0.9 % Sodium Chloride 1,000 ML 1000 / 1000 @ 75 mls/hr IVC .[id number] MOHAN Rx #:[id number] Cleocin Premix 900 MG/50 ML 900 50 / 50 mg In 50 ml @ 50 mls/hr IVPB Q8HR COUNTS INCLUDE 234 BEDS AT THE [facility] Rx#:[id number] KCl 40 MEQ Xylocaine 2 ML In 520 / 520 Dextrose 5% 500 ML @ 130.5 mls/ hr IVPB ONCE ONE Rx#:[id number] Oral 200 / 200 Output: Estimated Blood Loss 5 / 5 Catheter 1250 / 1250 - Labs CBC & BMP: 09/20/17 06:52 09/20/17 06:52 Labs: Abnormal lab results Glucose 151 mg/dL (70-105) H 09/20/17 06:52 Triglycerides 192 mg/dL (< 150) H 09/19/17 01:25 VLDL Cholesterol, Calc 38 mg/dL (< 31) H 09/19/17 01:25 HDL Cholesterol 32 mg/dL (40-59) L 09/19/17 01:25 Cholesterol/HDL Ratio 5.1 (0-4.9) H 09/19/17 01:25 Urine Blood Moderate (Negative) H 09/19/17 00:03 Urine Microscopic RBC 5-15 per hpf (0-3) H 09/19/17 00:03 - VTE Documentation of Mechanical Device: Venous foot pump, device Consult Discharge Plan - Plan Referrals: Ely Dowling CNP [Primary Care Provider] -
[2017-09-20] MEDS: ANORO ELLIPTA IH SCH (11:33)
[2017-09-20] MEDS: traMADol 50 MG TABLET PO PRN ×2 (11:35→17:51)
--- NOTE | 2017-09-20 13:08 | Internal Med Progress Note ---
Date of Encounter: 09/20/17 Time of Encounter: 10:25 - Assessment and plan (1) Hip fracture Current Visit: Yes Status: Acute Assessment and plan: Femoral x-ray demonstrated acute nondisplaced femoral neck fracture. Patient fell yesterday while at home after her knee locked up. She denied hitting her head or losing consciousness. Head and cervical spine CT negative for fracture or bleed s/p day 1 left hip open pending -ortho determine patient is stable for discharge -pain is controlled with the patient's home medication dose of morphine -PT/OT ordered -social work consulted for discharge plans to rehab, patient prefers to go to [address] [place] [address]. Awaiting acceptance Qualifiers: Encounter type: initial encounter Fracture type: closed Laterality: left Qualified Code(s): S72.002A - Fracture of unspecified part of neck of left femur, initial encounter for closed fracture (2) Leukocytosis Current Visit: Yes Status: Acute Assessment and plan: Resolved. Elevated WBC likely secondary to trauma and not acute infection WBC 7.3 (15.4) afebrile -blood culture negative for growth Qualifiers: Qualified Code(s): D72.829 - Elevated white blood cell count, unspecified (3) CAD (coronary artery disease) Current Visit: Yes Status: Acute Assessment and plan: History of known CAD taking Plavix -continue Plavix Qualifiers: Qualified Code(s): I25.10 - Atherosclerotic heart disease of [place] coronary artery without angina pectoris (4) CVA (cerebral vascular accident) Current Visit: Yes Status: Acute Assessment and plan: History of known CVA Qualifiers: Qualified Code(s): I63.9 - Cerebral infarction, unspecified (5) Parkinson disease Current Visit: Yes Status: Acute Assessment and plan: History of known Parkinson's taking carbidopa/ levodopa -continue home medication (6) History of DVT (deep vein thrombosis) Current Visit: Yes Status: Acute Assessment and plan: History of DVT's in right lower extremity. She reports that since right knee replacement she is not had a DVT. She is no longer on anticoagulation with Coumadin. She has also had a PE but this was secondary to back surgery for which she was in mobile for a long period of time. - Lovenox for DVT prophylaxis (7) COPD (chronic obstructive pulmonary disease) Current Visit: No Status: Chronic Assessment and plan: History of COPD SPO2 well on room air -continue bronchodilators Qualifiers: COPD type: chronic bronchitis Chronic bronchitis type: simple Qualified Code(s): J41.0 - Simple chronic bronchitis (8) HTN (hypertension) Current Visit: Yes Status: Chronic Assessment and plan: History of hypertension taking hydrochlorothiazide, coreg, clonidine blood pressure is stable -continue home medications Qualifiers: Hypertension type: essential hypertension Qualified Code(s): I10 - Essential (primary) hypertension (9) DVT prophylaxis Current Visit: Yes Status: Acute Assessment and plan: Lovenox sq - Time Spent With Patient Total time spent is greater than 50% in coordination of care (as documented) at patient's floor/unit and/or counseling patient: - Subjective Interval history: 77yo female PMH CVA, DVT, COPD, CAD, Gerd, Parkinson's who presented to the ED after a fall at home. She reported that her knee locked up and she fell without hitting her head or losing consciousness. In the ED femoral x-ray demonstrated acute nondisplaced femoral neck fracture. s/p left hip open pending by ortho. Upon my examination the patient is alert and oriented times 3 and reported that her pain is well-controlled. She denied chest pain, shortness of breath, fever, chills, nausea, vomiting. She had no other complaints. - Constitutional Vitals: Temp Pulse Resp BP Pulse Ox 97.4 F L 56 17 92/47 92 09/20/17 11:05 09/20/17 11:05 09/20/17 11:05 09/20/17 11:05 09/20/17 11:05 General appearance: Present: mild distress Exam: Gen.: Vitals noted. No acute distress. AAOx3 HEENT: oropharynx clear, Normocephalic, atraumatic Cardiac: RRR, no murmur, +S1/S2 Pulmonary: CTA bilaterally, no wheezes, rales or rhonchi, equal chest expansion Abdomen: soft, nontender, Bowel sounds noted, no guarding MSK: ROM decreased and lower extremities, no joint swelling noted skin: skin is intact and no erythema around incision of left hip Extremities: no BLE edema, nontender calf, no cyanosis or clubbing Neuro: A&Ox3, moves all extremities, no focal deficits Psych: Appropriate mood and behavior Internal Medicine: Result - Labs CBC & Chem 7: 09/20/17 06:52 09/20/17 06:52 Labs: Short CBC 09/20/17 Range/Units 06:52 WBC 7.3 (4.3-11.1) K/mcL Hgb 13.7 D (11.5-15.4) g/dL Hct 42.5 (35.3-44.9) % Plt Count 153 (140-400) K/mcL Neutrophils # 6.1 (1.6-8.9) K/mcL BMP 09/20/17 06:52 Sodium 140 Potassium 4.0 Chloride 107 Carbon Dioxide 25 BUN 14 Creatinine 0.75 Glucose 151 H Calcium 8.6 - Impressions Impressions Fluoroscopy 09/19/17 16:16 IMPRESSION: Intraprocedural fluoroscopic spot images as above. See separate procedure report for more information. D/ / Triston De Jesus / Triston De Jesus Interpreting Provider: Triston De Jesus Hip X-Ray 09/19/17 16:37 IMPRESSION: Anatomic alignment of the left hip after fracture repair D/ / Walter Horvath MD / Walter Horvath MD Interpreting Provider: Walter Horvath MD - VTE Documentation of Mechanical Device: Venous foot pump, device Consult Discharge Plan - Plan Referrals: Ely Dowling CNP [Primary Care Provider] -
[2017-09-20] MEDS: tiZANidine 4 MG TABLET PO SCH (19:34)
[2017-09-20] MEDS: Mirtazapine 15 MG TABLET PO SCH (19:34)
[2017-09-21] MEDS: *HR* Enoxaparin 40 MG/0.4 ML SYRINGE SQ SCH (05:46)
[2017-09-21] MEDS: traMADol 50 MG TABLET PO PRN (05:47)
[2017-09-21] MEDS ORDERED: Ringers Solution, Lactated 1,000 ML IVC SCH (07:45)
[2017-09-21] MEDS: hydroCHLOROthiazide 25 MG TABLET PO SCH (08:12)
[2017-09-21] MEDS: *HR* Morphine Sulfate SR (12 HR) 30 MG TABLET.ER PO SCH (08:15)
[2017-09-21] MEDS: Gabapentin 400 MG CAPSULE PO SCH ×2 (08:15→15:42)
[2017-09-21] MEDS: Carbidopa/Levodopa 25/100 TABLET PO SCH ×2 (08:15→15:42)
[2017-09-21] MEDS: ANORO ELLIPTA IH SCH (08:21)
--- NOTE | 2017-09-21 08:28 | Discharge Summary ---
<Mary Kate Beck - Last Filed: 09/21/17 08:21> Orders not resulted at time of discharge: Pending orders 09/19/17 01:25 Culture,Blood [BC] AM 0400 09/19/17 16:16 XR hip complete LT [XR] Routine Date of Encounter: 09/21/17 Time of Encounter: 08:21 - Discharge Diagnosis (1) Hip fracture Priority: Primary Status: Acute Qualifiers: Encounter type: initial encounter Fracture type: closed Laterality: left Qualified Code(s): S72.002A - Fracture of unspecified part of neck of left femur, initial encounter for closed fracture (2) CAD (coronary artery disease) Priority: Secondary Status: Acute Qualifiers: Qualified Code(s): I25.10 - Atherosclerotic heart disease of [place] coronary artery without angina pectoris (3) CVA (cerebral vascular accident) Priority: Secondary Status: Acute Qualifiers: Qualified Code(s): I63.9 - Cerebral infarction, unspecified (4) Parkinson disease Priority: Secondary Status: Acute (5) History of DVT (deep vein thrombosis) Priority: Secondary Status: Acute (6) COPD (chronic obstructive pulmonary disease) Priority: Secondary Status: Chronic Qualifiers: COPD type: chronic bronchitis Chronic bronchitis type: simple Qualified Code(s): J41.0 - Simple chronic bronchitis (7) HTN (hypertension) Priority: Secondary Status: Chronic Qualifiers: Hypertension type: essential hypertension Qualified Code(s): I10 - Essential (primary) hypertension (8) DVT prophylaxis Priority: Secondary Status: Acute (9) Leukocytosis Priority: Secondary Status: Acute Qualifiers: Qualified Code(s): D72.829 - Elevated white blood cell count, unspecified Hospital course: Ms. Pickett is a 77 year old female with PMH CVA, DVT, COPD, CAD, Gerd, Parkinson' s who presented to the ED after a fall at home and was complaining of left hip pain. The patient had a mechanical fall, she reported that her knee locked up and she fell without hitting her head or losing consciousness. In the ED femoral x-ray and pelvis CT demonstrated acute nondisplaced femoral neck fracture. Orthopedic surgery was consulted and scheduled the patient for surgery the next day. The patient tolerated the surgical procedure well, she had left hip open pinning. During the course of her admission she remained afebrile, a blood cell counts normalized. Her pain was well-controlled with her home pain medication. PT/OT evaluated the patient and was determined that she should go to rehab. The manager case was able to set up for discharge to rehab, the patient to her 1st choice of [address] [place] [address] in [place]. She was instructed to continue incentive spirometry. She was instructed to follow-up with orthopedic surgery outpatient. She was instructed to take her pain medication as needed and to return to the hospital should she develop fever, chills, erythema, swelling, increased pain in the left hip. Upon discharge she was alert and oriented times 3 with full capacity instated a clear understanding the treatment plan. Discharge discussed with: patient, nurse - Time Spent with Patient Total time spent providing and/or coordinating discharge services: Greater than 30 minutes - Discharge Medications Prescriptions: Morphine Sulfate [Arymo ER] 60 mg PO BID 5 Days #10 tab.po.er Home Medications: Clopidogrel [Plavix] 75 mg PO DAILY 05/09/15 [History] Albuterol Sulfate [Albuterol Inhaler] 2 puff IH Q4H PRN 03/15/16 [History] Montelukast [Singulair] 10 mg PO DAILY 03/15/16 [History] Quetiapine Fumarate [Seroquel] 100 mg PO HS 03/15/16 [History] Tizanidine HCl [Zanaflex] 4 mg PO HS 03/15/16 [History] Albuterol Neb [Proventil Neb] 1.5 ml IH Q4H PRN 09/18/17 [History] Carbidopa/Levodopa [Carbidopa-Levo 25-100 mg Odt] 1 tab PO TID 09/18/17 [History ] Carvedilol [Coreg] 6.25 mg PO DAILY 09/18/17 [History] Ergocalciferol (VITAMIN D2) [Vitamin D2] 50,000 unit PO WE 09/18/17 [History] Gabapentin [Neurontin] 400 mg PO TID 09/18/17 [History] Mirtazapine [Remeron] 30 mg PO HS 09/18/17 [History] Nitroglycerin [Nitrostat] 0.4 mg SL Q5M PRN 09/18/17 [History] Umeclidinium Brm/Vilanterol Tr [Anoro Ellipta 62.5-25 Mcg INH] 1 puff IH DAILY 09/18/17 [History] cloNIDine HCl [Clonidine HCl] 0.3 mg PO DAILY 09/18/17 [History] hydroCHLOROthiazide [Hydrochlorothiazide] 25 mg PO DAILY 09/18/17 [History] Morphine Sulfate [Arymo ER] 60 mg PO BID 5 Days #10 tab.po.er 09/21/17 [Rx] Allergies/Adverse Reactions: 3 Allergy/AdvReac Type Severity Reaction Status Date / Time Penicillins Allergy Itching Verified 09/18/17 21:25 Tetracycline Allergy Hallucinati Verified 09/18/17 21:25 ng diazepam [From Valium] AdvReac Unconscious Verified 09/18/17 21:25 hydrocodone [From Vicodin] AdvReac See Verified 09/18/17 21:25 Comments ibuprofen AdvReac Nausea Verified 09/18/17 21:25 simvastatin AdvReac See Verified 09/18/17 21:25 Comments ivp dye Allergy Swelling Uncoded 09/18/17 21:25 of Lip/Tongue/Throat Date of admission: 09/18/17 22:50 Primary care physician: Ely Dowling CNP Consults: 09/19/17 09:59 Consult to Plastic Worker [CONS] Routine Reason for SW Consult: patient will need to be d/c to SNF for PT/OT, s/p left hip fracture. she prefers [facility] in [place] 09/19/17 17:48 Consult to Orthopedic Navigator [CONS] [CONS] Routine Consult to Plastic Worker [CONS] Routine Reason for SW Consult: post -op hip fracture RT Post Op Consult [CONS] Routine 09/20/17 06:39 Consult to Physical Therapy [CONS] Routine Comment: Evaluate, develop and implement POC Reason for Consult: post op right hip pinning, patient partial weight bearing to right leg Does patient have active BEDREST order?: No Is patient medically & hemodynamically stable?: Yes 09/20/17 06:40 Consult to Occupational Therapy [CONS] Routine Comment: Evaluate, develop and implement POC Reason for Consult: post right hip pinning, patient partial weight bearing to right leg Does patient have active BEDREST order?: No Is patient medically & hemodynamically stable?: Yes Discharging clinician: Zia Mendoza Anticipated date of discharge: 09/21/17 - Constitutional Vitals: Temp Pulse Resp BP Pulse Ox 98.2 F 86 14 93/52 94 09/21/17 05:24 09/21/17 05:24 09/21/17 05:24 09/21/17 05:24 09/20/17 23:55 General appearance: Present: mild distress Exam: Gen.: Vitals noted. No acute distress. AAOx3 HEENT: oropharynx clear, Normocephalic, atraumatic Cardiac: RRR, no murmur, +S1/S2 Pulmonary: CTA bilaterally, no wheezes, rales or rhonchi, equal chest expansion Abdomen: soft, nontender, Bowel sounds noted, no guarding MSK: ROM decreased and lower extremities, no joint swelling noted skin: skin is intact and no erythema around incision of left hip Extremities: no BLE edema, nontender calf, no cyanosis or clubbing Neuro: A&Ox3, moves all extremities, no focal deficits Psych: Appropriate mood and behavior - Patient Status Disposition: Transfer Inpatient Rehab Fac Condition: Fair Functional capacity at discharge: uses cane/walker Overall status at discharge: patient is progressing back to baseline - Discharge Instructions Follow Up With: Martínez Cleaning MD [Partnered Physician] - (THE OFFICE WILL CALL YOU WITH AN APPOINTMENT) Ely Dowling CNP [Primary Care Provider] - Additional Instructions: Take pain medication as needed. Follow-up with orthopedic surgery outpatient return hospital should he develop fever, chills, redness, warmth. Discharge Instructions: Total Hip Replacement Please call [facility] ([phone]), your Primary Care Physician, or report to the Emergency Room if you have any of the following symptoms: Nausea, vomiting, fever greater that 101.5, swelling, chest pain, shortness of breath, increased pain/redness/drainage/odor for your incision site, numbness/ tingling, or any other concerning symptoms. ACTIVITY:Weight-bearing as tolerated for 8 weeks with hip dislocation precautions that physical therapy taught you. You may progress as tolerated under the guidance of your physical therapist. You do not need to sleep with a pillow between your legs. You can also seep on the operative side or on your stomach. MEDICATIONS: Upon discharge resume your home medications. Take all the medications as prescribed. Take a stool softener if taking narcotic pain medications. Stool softeners are only effective if you drink enough fluids. Drink 6-8 glass of water or fluids a day, unless this is not allowed for another health problem. Despite using stool softeners, if you haven't had a bowel movement in 3 days, please switch to a gentle laxative. Gentle laxatives are sold over the counter. You should have a bowel movement within 24 hours, if not call the office. You will be discharged from the hospital with a prescription for pain medication. You are encouraged to decrease the use of narcotic pain medication as tolerated. Should you require a refill, please call the office. [facility] prescribes narcotic pain medication for only 4-6 weeks after surgery. If you require pain medication beyond this time period, you may be referred to your Primary Care Physician or to the Pain Clinic for further evaluation. Plan ahead for refills on pain medication as many narcotics either need to be picked up at the office or mailed. It is best to call 48-72 hours in advance of needing a prescription refill so you don't run out of medication. To help control the post-operative pain, you may take NSAIDs (Aleve,Advil, Motrin, ibuprofen, naprosyn) or Tylenol as prescribed on the bottle in addition to the pain medication. ANTICOAGULATION (blood thinners): Continue your Aspirin, Lovenox or Coumadin as prescribed to help prevent a blood clot in the leg or in the lungs. As long as your incision remains dry and you tolerate the NSAIDs (Aleve, Advil, Motrin, Ibuprofen, Naprosyn), it is OK to use the NSAIDS while you are taking your anticoagulation medication. Should your incision start to drain, stop the NSAID and contact our office. Common symptoms of blood clot in the legs include: localized pain, swelling, calf tenderness, redness or discoloration of the skin. Blood clot in the lung symptoms include: shortness of breath, rapid pulse, sweating, and chest pain that worsens with deep breathing, coughing up blood, lightheadedness, feelings of anxiety. If you experience any of these symptoms notify your physician immediately, go to the emergency room, or if having trouble breathing, call 911. WOUND CARE: Leave the dressing on for 7 to 10days. You may change the dressing if it is saturated greater than 50%. Do not get the dressing wet at anytime. Wash your hands with antibacterial soap, rinse and dry prior to any wound care. If you have estella the visiting nurse or rehab facility can remove the stapes 10-14 days after surgery and place steri-strips across the wound. Leave the steri-strips in place until they fall off on their own. You may let water from the shower run on top of the steri-strips. If you do not have a visiting nurse or rehab facility, you will need to return to the office at 10-14 days for the estella to be removed. If you have itching or redness around the dressing call the office. FOLLOW-UP: Please follow up with your surgeon in the orthopedic clinic in 6 weeks from the day of surgery. If you have estella that need to be removed, you will need to come back to the office in 10-14 days from the day of surgery. - Diet and Activity Activity: ambulate only with your walker Diet: advance to your usual diet - VTE Documentation of Mechanical Device: Venous foot pump, device <Zia Mendoza - Last Filed: 09/21/17 16:51> Orders not resulted at time of discharge: Pending orders 09/19/17 01:25 Culture,Blood [BC] AM 0400 09/19/17 16:16 XR hip complete LT [XR] Routine Date of Encounter: 09/21/17 - Discharge Diagnosis (1) COPD (chronic obstructive pulmonary disease) Status: Chronic Qualifiers: COPD type: chronic bronchitis Chronic bronchitis type: simple Qualified Code(s): J41.0 - Simple chronic bronchitis (2) Hip fracture Status: Acute Qualifiers: Encounter type: initial encounter Fracture type: closed Laterality: left Qualified Code(s): S72.002A - Fracture of unspecified part of neck of left femur, initial encounter for closed fracture (3) HTN (hypertension) Status: Chronic Qualifiers: Hypertension type: essential hypertension Qualified Code(s): I10 - Essential (primary) hypertension (4) CAD (coronary artery disease) Status: Acute Qualifiers: Qualified Code(s): I25.10 - Atherosclerotic heart disease of [place] coronary artery without angina pectoris (5) CVA (cerebral vascular accident) Status: Acute Qualifiers: Qualified Code(s): I63.9 - Cerebral infarction, unspecified (6) Parkinson disease Status: Acute (7) History of DVT (deep vein thrombosis) Status: Acute (8) DVT prophylaxis Status: Acute (9) Leukocytosis Status: Acute Qualifiers: Qualified Code(s): D72.829 - Elevated white blood cell count, unspecified Hospital course: Ms. Pickett is a 77 year old female - Time Spent with Patient Total time spent providing and/or coordinating discharge services: Date of admission: 09/18/17 22:50 Primary care physician: Ely Dowling CNP Consults: 09/19/17 09:59 Consult to Plastic Worker [CONS] Routine Reason for SW Consult: patient will need to be d/c to SNF for PT/OT, s/p left hip fracture. she prefers [address] in [place] 09/19/17 17:48 Consult to Orthopedic Navigator [CONS] [CONS] Routine Consult to Plastic Worker [CONS] Routine Reason for SW Consult: post -op hip fracture RT Post Op Consult [CONS] Routine 09/20/17 06:39 Consult to Physical Therapy [CONS] Routine Comment: Evaluate, develop and implement POC Reason for Consult: post op right hip pinning, patient partial weight bearing to right leg Does patient have active BEDREST order?: No Is patient medically & hemodynamically stable?: Yes 09/20/17 06:40 Consult to Occupational Therapy [CONS] Routine Comment: Evaluate, develop and implement POC Reason for Consult: post right hip pinning, patient partial weight bearing to right leg Does patient have active BEDREST order?: No Is patient medically & hemodynamically stable?: Yes - Constitutional Vitals: Temp Pulse Resp BP Pulse Ox 98.2 F 66 16 123/66 98 09/21/17 15:22 09/21/17 15:22 09/21/17 16:23 09/21/17 15:42 09/21/17 16:23 - Attending Attestation I performed a history and physical examination of the patient and discussed his/ her management with the resident. I reviewed the residents note and agree with the documented findings and plan of care. Note patient currently unable to urinate on her own and required straight catheterization. Will await patient to void prior to DC.
--- NOTE | 2017-09-21 08:37 | Physician Discharge Referral ---
ExtendedCare Referral Info Transfer To: [address] [place] [address] Provider in Charge after Transfer: PCP Institutional Level of Care: Skilled - Diagnosis (1) Hip fracture Status: Acute (2) Leukocytosis Status: Acute (3) CAD (coronary artery disease) Status: Acute (4) CVA (cerebral vascular accident) Status: Acute (5) Parkinson disease Status: Acute (6) History of DVT (deep vein thrombosis) Status: Acute (7) COPD (chronic obstructive pulmonary disease) Status: Chronic (8) HTN (hypertension) Status: Chronic (9) DVT prophylaxis Status: Acute - Transfer Medications Prescriptions: Morphine Sulfate [Arymo ER] 60 mg PO BID 5 Days #10 tab.po.er Home Medications: Clopidogrel [Plavix] 75 mg PO DAILY 05/09/15 [History] Albuterol Sulfate [Albuterol Inhaler] 2 puff IH Q4H PRN 03/15/16 [History] Montelukast [Singulair] 10 mg PO DAILY 03/15/16 [History] Quetiapine Fumarate [Seroquel] 100 mg PO HS 03/15/16 [History] Tizanidine HCl [Zanaflex] 4 mg PO HS 03/15/16 [History] Albuterol Neb [Proventil Neb] 1.5 ml IH Q4H PRN 09/18/17 [History] Carbidopa/Levodopa [Carbidopa-Levo 25-100 mg Odt] 1 tab PO TID 09/18/17 [History ] Carvedilol [Coreg] 6.25 mg PO DAILY 09/18/17 [History] Ergocalciferol (VITAMIN D2) [Vitamin D2] 50,000 unit PO WE 09/18/17 [History] Gabapentin [Neurontin] 400 mg PO TID 09/18/17 [History] Mirtazapine [Remeron] 30 mg PO HS 09/18/17 [History] Nitroglycerin [Nitrostat] 0.4 mg SL Q5M PRN 09/18/17 [History] Umeclidinium Brm/Vilanterol Tr [Anoro Ellipta 62.5-25 Mcg INH] 1 puff IH DAILY 09/18/17 [History] cloNIDine HCl [Clonidine HCl] 0.3 mg PO DAILY 09/18/17 [History] hydroCHLOROthiazide [Hydrochlorothiazide] 25 mg PO DAILY 09/18/17 [History] Morphine Sulfate [Arymo ER] 60 mg PO BID 5 Days #10 tab.po.er 09/21/17 [Rx] Allergies/Adverse Reactions: 3 Allergy/AdvReac Type Severity Reaction Status Date / Time Penicillins Allergy Itching Verified 09/18/17 21:25 Tetracycline Allergy Hallucinati Verified 09/18/17 21:25 ng diazepam [From Valium] AdvReac Unconscious Verified 09/18/17 21:25 hydrocodone [From Vicodin] AdvReac See Verified 09/18/17 21:25 Comments ibuprofen AdvReac Nausea Verified 09/18/17 21:25 simvastatin AdvReac See Verified 09/18/17 21:25 Comments ivp dye Allergy Swelling Uncoded 09/18/17 21:25 of Lip/Tongue/Throat - Respiratory Orders Oxygen / L per min (2L PRN) Smoking Cessation: Smoking cessation has been advised. For more information, call the [employer] Tobacco Quit Line at 5-808-DMUK-NOW. - Advance Directives Code Status: Full Code - Mobility Orders Ambulate - Rehabiliation Orders Rehab Potential: Good Rehab Orders: Evaluation for Physical Therapy, Evaluation for Occupational Therapy - Diet Orders Regular CERTIFICATION: I certify that the transfer of the above named patient to an Extended Care Facility is necessary for the continuing treatment of the diagnosis listed. The above information is true and accurate reflection of patient's current condition. Confidential - Redisclosure prohibited without a patient's written consent. Dr. Mary Kate Beck
[2017-09-21] MEDS: cloNIDine HCl 0.1 MG TABLET PO SCH ×2 (11:01→15:44)
--- NOTE | 2017-09-21 11:51 | Orthopedics Progress Note ---
Date of Encounter: 09/21/17 Time of Encounter: 11:49 Subjective Interval history: No overnight issues. Denies CP or SOB. Denies fevers or chills AFVSS GEN - NAD LLE: Dress c/d/i DNVI Calves nontender A/P: s/p L hip perc pinning -Mobilize with PT -D/c planning per hospitalist Objective Vital signs: Vital Signs Temp Pulse Resp BP Pulse Ox 09/21/17 08:27 72 101/50 09/21/17 05:24 98.2 F 86 14 93/52 09/20/17 23:55 98.0 F 70 15 102/66 94 09/20/17 20:49 97.5 F L 68 14 97/54 93 09/20/17 19:32 97.9 F 58 17 103/68 93 09/20/17 15:36 97.8 F 81 17 98/50 93 Intake and Output 09/20/17 09/21/17 09/21/17 23:59 07:59 15:59 Intake Total 300 / 300 300 / 300 240 / 240 Output Total 750 / 750 Balance 300 / 300 -450 / -450 240 / 240 Intake: Oral 300 / 300 300 / 300 240 / 240 Output: Straight Cath 750 / 750 Other: Meal Breakfast Percent of Meal Consumed 100% # Voids 1 - Labs CBC & BMP: 09/20/17 06:52 09/20/17 06:52 Labs: Abnormal lab results Glucose 151 mg/dL (70-105) H 09/20/17 06:52 Triglycerides 192 mg/dL (< 150) H 09/19/17 01:25 VLDL Cholesterol, Calc 38 mg/dL (< 31) H 09/19/17 01:25 HDL Cholesterol 32 mg/dL (40-59) L 09/19/17 01:25 Cholesterol/HDL Ratio 5.1 (0-4.9) H 09/19/17 01:25 Urine Blood Moderate (Negative) H 09/19/17 00:03 Urine Microscopic RBC 5-15 per hpf (0-3) H 09/19/17 00:03 - VTE Documentation of Mechanical Device: Venous foot pump, device Consult Discharge Plan - Plan Additional Instructions: Take pain medication as needed. Follow-up with orthopedic surgery outpatient return hospital should he develop fever, chills, redness, warmth. Discharge Instructions: Total Hip Replacement Please call [facility] ([phone]), your Primary Care Physician, or report to the Emergency Room if you have any of the following symptoms: Nausea, vomiting, fever greater that 101.5, swelling, chest pain, shortness of breath, increased pain/redness/drainage/odor for your incision site, numbness/ tingling, or any other concerning symptoms. ACTIVITY:Weight-bearing as tolerated for 8 weeks with hip dislocation precautions that physical therapy taught you. You may progress as tolerated under the guidance of your physical therapist. You do not need to sleep with a pillow between your legs. You can also seep on the operative side or on your stomach. MEDICATIONS: Upon discharge resume your home medications. Take all the medications as prescribed. Take a stool softener if taking narcotic pain medications. Stool softeners are only effective if you drink enough fluids. Drink 6-8 glass of water or fluids a day, unless this is not allowed for another health problem. Despite using stool softeners, if you haven't had a bowel movement in 3 days, please switch to a gentle laxative. Gentle laxatives are sold over the counter. You should have a bowel movement within 24 hours, if not call the office. You will be discharged from the hospital with a prescription for pain medication. You are encouraged to decrease the use of narcotic pain medication as tolerated. Should you require a refill, please call the office. [facility] prescribes narcotic pain medication for only 4-6 weeks after surgery. If you require pain medication beyond this time period, you may be referred to your Primary Care Physician or to the Pain Clinic for further evaluation. Plan ahead for refills on pain medication as many narcotics either need to be picked up at the office or mailed. It is best to call 48-72 hours in advance of needing a prescription refill so you don't run out of medication. To help control the post-operative pain, you may take NSAIDs (Aleve,Advil, Motrin, ibuprofen, naprosyn) or Tylenol as prescribed on the bottle in addition to the pain medication. ANTICOAGULATION (blood thinners): Continue your Aspirin, Lovenox or Coumadin as prescribed to help prevent a blood clot in the leg or in the lungs. As long as your incision remains dry and you tolerate the NSAIDs (Aleve, Advil, Motrin, Ibuprofen, Naprosyn), it is OK to use the NSAIDS while you are taking your anticoagulation medication. Should your incision start to drain, stop the NSAID and contact our office. Common symptoms of blood clot in the legs include: localized pain, swelling, calf tenderness, redness or discoloration of the skin. Blood clot in the lung symptoms include: shortness of breath, rapid pulse, sweating, and chest pain that worsens with deep breathing, coughing up blood, lightheadedness, feelings of anxiety. If you experience any of these symptoms notify your physician immediately, go to the emergency room, or if having trouble breathing, call 911. WOUND CARE: Leave the dressing on for 7 to 10days. You may change the dressing if it is saturated greater than 50%. Do not get the dressing wet at anytime. Wash your hands with antibacterial soap, rinse and dry prior to any wound care. If you have estella the visiting nurse or rehab facility can remove the stapes 10-14 days after surgery and place steri-strips across the wound. Leave the steri-strips in place until they fall off on their own. You may let water from the shower run on top of the steri-strips. If you do not have a visiting nurse or rehab facility, you will need to return to the office at 10-14 days for the estella to be removed. If you have itching or redness around the dressing call the office. FOLLOW-UP: Please follow up with your surgeon in the orthopedic clinic in 6 weeks from the day of surgery. If you have estella that need to be removed, you will need to come back to the office in 10-14 days from the day of surgery. Referrals: Martínez Cleaning MD [Partnered Physician] - (THE OFFICE WILL CALL YOU WITH AN APPOINTMENT) Ely Dowling CNP [Primary Care Provider] - Prescriptions: Morphine Sulfate [Arymo ER] 60 mg PO BID 5 Days #10 tab.po.er
[2017-09-21 15:42] VITALS: BP 123/66
--- NOTE | 2017-09-21 15:57 | Electrocardiograph Report ---
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
[2017-09-21] MEDS ORDERED: hydroCHLOROthiazide 25 MG TABLET PO SCH (16:54)
--- NOTE | 2017-09-21 17:08 | Electrocardiograph Report ---
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
== END 2017-09-21 19:29 | DRG 482 ==
LOC: EMEROO 18:52 → 3NENU 18:52
PROVIDERS: ADMIT Internal Medicine Cardiovascular Disease; ATTEND Internal Medicine Cardiovascular Disease

== ENCOUNTER 2017-09-28 21:13 | Inpatient (IN) ==
[2017-09-28] MEDS ORDERED: 0.9 % Sodium Chloride 1,000 ML IVC ONE (21:26)
[2017-09-28 21:45] LABS: Bilirubin,Urine Negative (Negative); Blood,Urine Negative (Negative); Clarity,Urine Cloudy (Clear); Color,Urine Dark Yellow (Yellow); Glucose,Urine (UA) Normal (Normal); Ketones,Urine Trace mg/dL (Negative); Leukocyte Esterase,Urine Large (Negative); Nitrite,Urine Positive (Negative); PH,Urine 5.5 pH Units (5.0-8.0); Protein,Urine Trace mg/dL (Neg-Trace); Specific Gravity,Urine 1.023 (1.010-1.025); Urobilinogen,Urine Normal (Normal)
[2017-09-28 21:48] LABS: Bacteria,Urine Few per hpf (None-Few); Hyaline Casts,Urine None Seen per lpf (None-Few); Squamous Epithelial Cell,Urine Many per lpf (None-Few); WBC,Urine TNTC per hpf (0-3)
--- NOTE | 2017-09-28 21:54 | Emergency Department Note ---
Disposition Clinical Impression: Sepsis Qualifiers: Sepsis type: sepsis due to unspecified organism Qualified Code(s): A41.9 - Sepsis, unspecified organism UTI (urinary tract infection) Qualifiers: Urinary tract infection type: site unspecified Hematuria presence: without hematuria Qualified Code(s): N39.0 - Urinary tract infection, site not specified Pneumonia Qualifiers: Pneumonia type: due to unspecified organism Laterality: unspecified laterality Lung location: unspecified part of lung Qualified Code(s): J18.9 - Pneumonia, unspecified organism Disposition: Admitted As Inpatient Condition: Fair Time of Disposition: 23:53 Fever HPI - General Chief Complaint: ED Fever Stated Complaint: fever Time Seen by Provider: 09/28/17 21:25 Source: patient, EMS Limitations: no limitations Nursing Notes Reviewed: Yes Vital Signs Reviewed: Yes - History of Present Illness HPI Narrative: Patient is a 77-year-old female who presents to [facility] ED with a chief complaint of altered mental status per family. Patient family states she has been talking out of her head. She recently underwent a left hip surgery by Dr. Cleaning on 09/17/2017. Patient has been at rehabilitation area did family states she has had 2 days now of fevers. They found her to have an oxygenation of 84% on room air. She was then placed on 2 L nasal cannula. Patient currently states she is not having any issues. Denies any chest pain, difficulty breathing, cough or cold. No abdominal pain, problems with urination or bowel movements. Pt Subjective Complaint: fever Onset (ago): day(s) (2) Context: recent procedure/surgery Associated symptoms: Reports: denies other symptoms Improves with: nothing Worsens with: nothing Treatments prior to arrival fever: acetaminophen - Related Data Home Medications Medication Instructions Recorded Confirmed Clopidogrel [Plavix] 75 mg PO DAILY 05/09/15 09/18/17 Albuterol Sulfate [Albuterol 2 puff IH Q4H PRN 03/15/16 09/18/17 Inhaler] Montelukast [Singulair] 10 mg PO DAILY 03/15/16 09/18/17 Quetiapine Fumarate [Seroquel] 100 mg PO HS 03/15/16 09/18/17 Tizanidine HCl [Zanaflex] 4 mg PO HS 03/15/16 09/18/17 Albuterol Neb [Proventil Neb] 1.5 ml IH Q4H PRN 09/18/17 09/18/17 Carbidopa/Levodopa [Carbidopa-Levo 1 tab PO TID 09/18/17 09/18/17 25-100 mg Odt] Carvedilol [Coreg] 6.25 mg PO DAILY 09/18/17 09/18/17 Ergocalciferol (VITAMIN D2) 50,000 unit PO WE 09/18/17 09/18/17 [Vitamin D2] Gabapentin [Neurontin] 400 mg PO TID 09/18/17 09/18/17 Mirtazapine [Remeron] 30 mg PO HS 09/18/17 09/18/17 Nitroglycerin [Nitrostat] 0.4 mg SL Q5M PRN 09/18/17 09/18/17 Umeclidinium Brm/Vilanterol Tr 1 puff IH DAILY 09/18/17 09/18/17 [Anoro Ellipta 62.5-25 Mcg INH] cloNIDine HCl [Clonidine HCl] 0.3 mg PO DAILY 09/18/17 09/18/17 hydroCHLOROthiazide 25 mg PO DAILY 09/18/17 09/18/17 [Hydrochlorothiazide] Previous Rx's Medication Instructions Recorded Morphine Sulfate [Arymo ER] 60 mg PO BID 5 Days #10 tab.po.er 09/21/17 Allergies Allergy/AdvReac Type Severity Reaction Status Date / Time Penicillins Allergy Itching Verified 09/18/17 21:25 Tetracycline Allergy Hallucinati Verified 09/18/17 21:25 ng diazepam [From Valium] AdvReac Unconscious Verified 09/18/17 21:25 hydrocodone [From Vicodin] AdvReac See Verified 09/18/17 21:25 Comments ibuprofen AdvReac Nausea Verified 09/18/17 21:25 simvastatin AdvReac See Verified 09/18/17 21:25 Comments ivp dye Allergy Swelling Uncoded 09/18/17 21:25 of Lip/Tongue/Throat All systems ED: reviewed and negative except as stated. Fever PMH - Past Medical History Medical history: Reports: COPD, coronary artery disease, CVA, DVT, GERD, hyperlipidemia, hypertension, TIA Surgical history: Reports: appendectomy, cholecystectomy, hysterectomy Psychiatric history: Reports: anxiety, depression [employer] history: Reports: no [employer] history - Social History Smoking Status: Never smoker Alcohol use: Reports: none Drug use: Reports: none Physical Exam - General Limitations: no limitations General appearance: alert - Head Head exam: atraumatic, normocephalic, normal inspection - Eye Eye exam: Present: normal appearance, PERRL, EOMI - ENT ENT exam: normal exam, normal oropharynx, mucous membranes moist - Neck Neck exam: Present: normal inspection, full ROM, trachea midline - Chest Chest inspection: Present: normal inspection, symmetric chest wall rise - Respiratory Respiratory exam: Present: normal lung sounds bilaterally - Cardiovascular Cardiovascular exam: Present: normal rhythm, tachycardia - Abdominal Exam Abdominal exam: Present: soft, Non-Tender. Absent: tenderness, distention, guarding, rebound, rigidity - Extremities Exam Extremities exam: Present: normal inspection, full ROM. Absent: tenderness, pedal edema - Back Exam Back exam: Present: normal inspection, full ROM. Absent: tenderness - Neurological Exam Neurological exam: Present: alert, oriented X3 - Psychiatric Psychiatric exam: Present: normal affect, normal mood - Skin Skin exam: Present: warm, dry, intact, normal color Course Course Narrative: Patient seen and examined. Altered mental status per family. She is alert and oriented to self, place, year and month upon my examination. She has no specific complaints. She is febrile with a temp 101. Her oxygen is 90% on 5 L. Septic workup initiated. We will give a liter of IV fluids. Blood cultures ordered. We will start antibiotic treatment for likely HCAP pneumonia. Vancomycin, Levaquin, aztreonam ordered. - Reevaluation(s) Reevaluation #1: Urinalysis suspicious for urinary tract infection. We will cover with Levaquin. Since patient is septic with hypoxemia fever, we will go ahead and cover her as a pneumonia. States would be healthcare associated pneumonia and she was recently in the hospital and has been at rehabilitation. Vancomycin and aztreonam ordered. We will admit for sepsis, pneumonia, urinary tract infection. I did consider doing a CTA of the chest for possible pulmonary embolus. However, with her febrile illness and lack of shortness of breath or chest pain, we will hold off on this. Time: 23:55 Vital Signs Temperature 101 F H 09/28/17 21:25 Pulse Rate 104 09/28/17 21:25 Respiratory Rate 20 09/28/17 21:25 Blood Pressure 136/62 09/28/17 21:25 O2 Sat by Pulse Oximetry 93 09/28/17 21:25 Temperature 101 F H 09/28/17 21:25 Pulse Rate 99 09/28/17 23:09 Respiratory Rate 18 09/28/17 23:09 Blood Pressure 112/59 09/28/17 23:09 O2 Sat by Pulse Oximetry 96 09/28/17 23:09 Oxygen Delivery Oxygen Delivery Nasal Cannula Fever - Medical Records Medical records reviewed: Yes I reviewed the patient's medical records. - Lab Data Lab results reviewed: Yes I reviewed the patient's lab results. Result diagrams: 09/28/17 21:51 09/28/17 21:51 Lab Results 09/28/17 09/28/17 09/28/17 Range/Units 21:37 21:51 21:51 WBC 9.8 (4.3-11.1) K/mcL RBC 4.65 (3.82-4.97) M/mcL Hgb 13.1 (11.5-15.4) g/dL Hct 41.8 (35.3-44.9) % MCV 89.9 (83.0-100.0) fL MCH 28.2 (28.0-33.3) pg MCHC 31.3 L (31.6-35.5) g/dL RDW 14.4 (11.5-14.5) % Plt Count 210 (140-400) K/mcL MPV 11.0 (9.4-12.4) fL Immature Gran % 0.3 (0-4) % Seg Neutrophils % 64.9 % Lymphocytes % 18.9 % Monocytes % 11.2 % Eosinophils % 4.2 % Basophils % 0.5 % Neutrophils # 6.4 (1.6-8.9) K/mcL Lymphocytes # 1.9 (0.6-4.6) K/mcL Monocytes # 1.1 (0.0-1.3) K/mcL Eosinophils # 0.4 (0.0-0.6) K/mcL Basophils # 0.1 (0.0-0.2) K/mcL Sodium 137 (136-145) mEq/L Potassium 3.5 (3.5-5.1) mEq/L Chloride 97 L (98-107) mEq/L Carbon Dioxide 32 H (23-29) mEq/L BUN 9 (8-23) mg/dL Creatinine 0.80 (0.60-1.20) mg/dL Est GFR ( Amer) > 60 (> 60) Est GFR (Non-Af Amer) > 60 (> 60) BUN/Creatinine Ratio 11 (6-26) Glucose 195 H (70-105) mg/dL Calculated Osmolality 288 (280-300) Lactic Acid (0.5-2.2) mmol/L Calcium 9.1 (8.6-10.3) mg/dL Phosphorus 1.8 L (2.7-4.5) mg/dL Magnesium 1.8 (1.6-2.6) mg/dL Total Bilirubin 0.6 (0.3-1.0) mg/dL Direct Bilirubin 0.0 (0.0-0.2) mg/dL Indirect Bilirubin 0.6 (0.0-1.2) mg/dL AST 30 (13-39) Units/L ALT 16 (7-52) Units/L Alkaline Phosphatase 78 (34-104) Units/L Troponin I < 0.03 (< 0.04) ng/mL Serum Total Protein 6.5 (6.4-8.9) g/dL Albumin 4.0 (3.5-5.7) g/dL Globulin 2.5 (2.4-3.5) g/dL Albumin/Globulin Ratio 1.6 (1.1-2.2) Urine Color Dark Yellow (Yellow) Urine Clarity Cloudy A (Clear) Urine pH 5.5 (5.0-8.0) pH Units Ur Specific [place] 1.023 (1.010-1.025) Urine Protein Trace (Neg-Trace) mg/dL Urine Glucose (UA) Normal (Normal) mg/dL Urine Ketones Trace H (Negative) mg/dL Urine Blood Negative (Negative) Urine Nitrite Positive A (Negative) Urine Bilirubin Negative (Negative) Urine Urobilinogen Normal (Normal) mg/dL Ur Leukocyte Esterase Large H (Negative) Urine Microscopic RBC 3-5 H (0-3) per hpf Urine Microscopic WBC TNTC H (0-3) per hpf Ur Squamous Epith Cells Many H (None-Few) per lpf Urine Bacteria Few (None-Few) per hpf Hyaline Casts None Seen (None-Few) per lpf Ur Culture Indicated? NO. A (NO) 09/28/17 Range/Units 21:51 WBC (4.3-11.1) K/mcL RBC (3.82-4.97) M/mcL Hgb (11.5-15.4) g/dL Hct (35.3-44.9) % MCV (83.0-100.0) fL MCH (28.0-33.3) pg MCHC (31.6-35.5) g/dL RDW (11.5-14.5) % Plt Count (140-400) K/mcL MPV (9.4-12.4) fL Immature Gran % (0-4) % Seg Neutrophils % % Lymphocytes % % Monocytes % % Eosinophils % % Basophils % % Neutrophils # (1.6-8.9) K/mcL Lymphocytes # (0.6-4.6) K/mcL Monocytes # (0.0-1.3) K/mcL Eosinophils # (0.0-0.6) K/mcL Basophils # (0.0-0.2) K/mcL Sodium (136-145) mEq/L Potassium (3.5-5.1) mEq/L Chloride (98-107) mEq/L Carbon Dioxide (23-29) mEq/L BUN (8-23) mg/dL Creatinine (0.60-1.20) mg/dL Est GFR ( Amer) (> 60) Est GFR (Non-Af Amer) (> 60) BUN/Creatinine Ratio (6-26) Glucose (70-105) mg/dL Calculated Osmolality (280-300) Lactic Acid 2.7 H (0.5-2.2) mmol/L Calcium (8.6-10.3) mg/dL Phosphorus (2.7-4.5) mg/dL Magnesium (1.6-2.6) mg/dL Total Bilirubin (0.3-1.0) mg/dL Direct Bilirubin (0.0-0.2) mg/dL Indirect Bilirubin (0.0-1.2) mg/dL AST (13-39) Units/L ALT (7-52) Units/L Alkaline Phosphatase (34-104) Units/L Troponin I (< 0.04) ng/mL Serum Total Protein (6.4-8.9) g/dL Albumin (3.5-5.7) g/dL Globulin (2.4-3.5) g/dL Albumin/Globulin Ratio (1.1-2.2) Urine Color (Yellow) Urine Clarity (Clear) Urine pH (5.0-8.0) pH Units Ur Specific [place] (1.010-1.025) Urine Protein (Neg-Trace) mg/dL Urine Glucose (UA) (Normal) mg/dL Urine Ketones (Negative) mg/dL Urine Blood (Negative) Urine Nitrite (Negative) Urine Bilirubin (Negative) Urine Urobilinogen (Normal) mg/dL Ur Leukocyte Esterase (Negative) Urine Microscopic RBC (0-3) per hpf Urine Microscopic WBC (0-3) per hpf Ur Squamous Epith Cells (None-Few) per lpf Urine Bacteria (None-Few) per hpf Hyaline Casts (None-Few) per lpf Ur Culture Indicated? (NO) - Radiology Data Radiology results reviewed: Yes I reviewed the patient's radiology results. Hip X-Ray 09/28/17 21:27 IMPRESSION: Stable appearance of the pelvis and left hip with no acute finding or evidence of hardware failure. D/ / Nathen Lambert MD / Nathen Lambert MD Interpreting Provider: Nathen Lambert MD Head CT 09/28/17 21:28 IMPRESSION: No change from prior CT examination. No acute intracranial findings. Stable atrophy and white matter disease that likely represent sequela of chronic small vessel ischemic disease. Stable left basal ganglia infarct. D/ / 09/28/2017 23:06:34 Jaxon Connolly MD / [email or web address] Interpreting Provider: Jaxon Connolly MD Chest X-Ray 09/28/17 21:29 IMPRESSION: No significant findings in the chest. D/ / Nathen Lambert MD / Nathen Lambert MD Interpreting Provider: Nathen Lambert MD - EKG Data EKG attestation: Yes I reviewed and interpreted this EKG. EKG results narrative: EKG done at 2245 shows sinus rhythm with a rate of [address] elevation or depression noted. Normal axis. Wandering baseline EKG.
[2017-09-28] MEDS ORDERED: Levofloxacin 750 MG/150 ML 750 MG/150 ML BAG IVPB ONE (21:59)
[2017-09-28 22:01] LABS: Basophils # 0.1 K/mcL (0.0-0.2); Basophils % 0.5 %; Eosinophils # 0.4 K/mcL (0.0-0.6); Eosinophils % 4.2 %; Hematocrit 41.8 % (35.3-44.9); Hemoglobin 13.1 g/dL (11.5-15.4); Immature Granulocytes % 0.3 % (0-4); Lymphocytes # 1.9 K/mcL (0.6-4.6); Lymphocytes % 18.9 %; Mean Corpuscular HGB Conc 31.3 g/dL (31.6-35.5); Mean Corpuscular Hemoglobin 28.2 pg (28.0-33.3); Mean Corpuscular Volume 89.9 fL (83.0-100.0); Monocytes # 1.1 K/mcL (0.0-1.3); Monocytes % 11.2 %; Neutrophils # 6.4 K/mcL (1.6-8.9); Platelet Count 210 K/mcL (140-400); Red Blood Count 4.65 M/mcL (3.82-4.97); Red Cell Distribution Width 14.4 % (11.5-14.5); Segmented Neutrophils % 64.9 %
[2017-09-28] MEDS ORDERED: Acetaminophen 325 MG TABLET PO ONE (22:02)
--- NOTE | 2017-09-28 22:02 | Emergency Department Note ---
Disposition Clinical Impression: Pneumonia Sepsis Qualifiers: Sepsis type: sepsis due to unspecified organism Qualified Code(s): A41.9 - Sepsis, unspecified organism UTI (urinary tract infection) Qualifiers: Urinary tract infection type: site unspecified Hematuria presence: without hematuria Qualified Code(s): N39.0 - Urinary tract infection, site not specified Disposition: Admitted As Inpatient Condition: Fair General Adult HPI - General Chief complaint: ED Fever Stated complaint: fever Time Seen by Provider: 09/28/17 21:25 Source: patient, EMS Limitations: no limitations - History of Present Illness Pain Scale: 0 - Related Data Home Medications Medication Instructions Recorded Confirmed Clopidogrel [Plavix] 75 mg PO DAILY 05/09/15 09/28/17 Albuterol Sulfate [Albuterol 2 puff IH Q4H PRN 03/15/16 09/28/17 Inhaler] Montelukast [Singulair] 10 mg PO DAILY 03/15/16 09/28/17 Quetiapine Fumarate [Seroquel] 100 mg PO HS 03/15/16 09/28/17 Tizanidine HCl [Zanaflex] 4 mg PO HS 03/15/16 09/28/17 Albuterol Neb [Proventil Neb] 1.5 ml IH Q4H PRN 09/18/17 09/28/17 Carbidopa/Levodopa [Carbidopa-Levo 1 tab PO TID 09/18/17 09/28/17 25-100 mg Odt] Carvedilol [Coreg] 6.25 mg PO DAILY 09/18/17 09/28/17 Ergocalciferol (VITAMIN D2) 50,000 unit PO WE 09/18/17 09/28/17 [Vitamin D2] Gabapentin [Neurontin] 400 mg PO TID 09/18/17 09/28/17 Mirtazapine [Remeron] 30 mg PO HS 09/18/17 09/28/17 Nitroglycerin [Nitrostat] 0.4 mg SL Q5M PRN 09/18/17 09/28/17 Umeclidinium Brm/Vilanterol Tr 1 puff IH DAILY 09/18/17 09/28/17 [Anoro Ellipta 62.5-25 Mcg INH] cloNIDine HCl [Clonidine HCl] 0.3 mg PO DAILY 09/18/17 09/28/17 hydroCHLOROthiazide 25 mg PO DAILY 09/18/17 09/28/17 [Hydrochlorothiazide] Previous Rx's Medication Instructions Recorded Morphine Sulfate [Arymo ER] 60 mg PO BID 5 Days #10 tab.po.er 09/21/17 Allergies Allergy/AdvReac Type Severity Reaction Status Date / Time Penicillins Allergy Itching Verified 09/18/17 21:25 Tetracycline Allergy Hallucinati Verified 09/18/17 21:25 ng diazepam [From Valium] AdvReac Unconscious Verified 09/18/17 21:25 hydrocodone [From Vicodin] AdvReac See Verified 09/18/17 21:25 Comments ibuprofen AdvReac Nausea Verified 09/18/17 21:25 simvastatin AdvReac See Verified 09/18/17 21:25 Comments ivp dye Allergy Swelling Uncoded 09/18/17 21:25 of Lip/Tongue/Throat Past Medical History - Past Medical History Medical history: Reports: COPD, coronary artery disease, CVA, DVT, GERD, hyperlipidemia, hypertension, TIA Surgical history: Reports: appendectomy, cholecystectomy, hysterectomy Psychiatric history: Reports: anxiety, depression C[employer]IED [employer] history: Reports: no [employer] history - Social History Smoking Status: Never smoker Smokeless Tobacco Status: No Alcohol use: Reports: none Drug use: Reports: none Physical Exam - General Limitations: no limitations General appearance: alert Course Vital Signs Temperature 101 F H 09/28/17 21:25 Pulse Rate 104 09/28/17 21:25 Respiratory Rate 20 09/28/17 21:25 Blood Pressure 136/62 09/28/17 21:25 O2 Sat by Pulse Oximetry 93 09/28/17 21:25 Temperature 99.4 F 09/29/17 00:28 Pulse Rate 99 09/29/17 00:28 Respiratory Rate 15 09/29/17 00:28 Blood Pressure 142/74 09/29/17 00:28 O2 Sat by Pulse Oximetry 95 09/29/17 00:28 Oxygen Delivery Oxygen Delivery Nasal Cannula Medical Decision Making - Lab Data Result diagrams: 09/29/17 01:38 09/29/17 01:38 Lab Results 09/28/17 09/28/17 09/28/17 Range/Units 21:37 21:51 21:51 WBC 9.8 (4.3-11.1) K/mcL RBC 4.65 (3.82-4.97) M/mcL Hgb 13.1 (11.5-15.4) g/dL Hct 41.8 (35.3-44.9) % MCV 89.9 (83.0-100.0) fL MCH 28.2 (28.0-33.3) pg MCHC 31.3 L (31.6-35.5) g/dL RDW 14.4 (11.5-14.5) % Plt Count 210 (140-400) K/mcL MPV 11.0 (9.4-12.4) fL Immature Gran % 0.3 (0-4) % Seg Neutrophils % 64.9 % Lymphocytes % 18.9 % Monocytes % 11.2 % Eosinophils % 4.2 % Basophils % 0.5 % Neutrophils # 6.4 (1.6-8.9) K/mcL Lymphocytes # 1.9 (0.6-4.6) K/mcL Monocytes # 1.1 (0.0-1.3) K/mcL Eosinophils # 0.4 (0.0-0.6) K/mcL Basophils # 0.1 (0.0-0.2) K/mcL Sodium 137 (136-145) mEq/L Potassium 3.5 (3.5-5.1) mEq/L Chloride 97 L (98-107) mEq/L Carbon Dioxide 32 H (23-29) mEq/L BUN 9 (8-23) mg/dL Creatinine 0.80 (0.60-1.20) mg/dL Est GFR ( Amer) > 60 (> 60) Est GFR (Non-Af Amer) > 60 (> 60) BUN/Creatinine Ratio 11 (6-26) Glucose 195 H (70-105) mg/dL Calculated Osmolality 288 (280-300) Lactic Acid (0.5-2.2) mmol/L Calcium 9.1 (8.6-10.3) mg/dL Phosphorus 1.8 L (2.7-4.5) mg/dL Magnesium 1.8 (1.6-2.6) mg/dL Total Bilirubin 0.6 (0.3-1.0) mg/dL Direct Bilirubin 0.0 (0.0-0.2) mg/dL Indirect Bilirubin 0.6 (0.0-1.2) mg/dL AST 30 (13-39) Units/L ALT 16 (7-52) Units/L Alkaline Phosphatase 78 (34-104) Units/L Troponin I < 0.03 (< 0.04) ng/mL Serum Total Protein 6.5 (6.4-8.9) g/dL Albumin 4.0 (3.5-5.7) g/dL Globulin 2.5 (2.4-3.5) g/dL Albumin/Globulin Ratio 1.6 (1.1-2.2) Urine Color Dark Yellow (Yellow) Urine Clarity Cloudy A (Clear) Urine pH 5.5 (5.0-8.0) pH Units Ur Specific [place] 1.023 (1.010-1.025) Urine Protein Trace (Neg-Trace) mg/dL Urine Glucose (UA) Normal (Normal) mg/dL Urine Ketones Trace H (Negative) mg/dL Urine Blood Negative (Negative) Urine Nitrite Positive A (Negative) Urine Bilirubin Negative (Negative) Urine Urobilinogen Normal (Normal) mg/dL Ur Leukocyte Esterase Large H (Negative) Urine Microscopic RBC 3-5 H (0-3) per hpf Urine Microscopic WBC TNTC H (0-3) per hpf Ur Squamous Epith Cells Many H (None-Few) per lpf Urine Bacteria Few (None-Few) per hpf Hyaline Casts None Seen (None-Few) per lpf Ur Culture Indicated? NO. A (NO) 09/28/17 Range/Units 21:51 WBC (4.3-11.1) K/mcL RBC (3.82-4.97) M/mcL Hgb (11.5-15.4) g/dL Hct (35.3-44.9) % MCV (83.0-100.0) fL MCH (28.0-33.3) pg MCHC (31.6-35.5) g/dL RDW (11.5-14.5) % Plt Count (140-400) K/mcL MPV (9.4-12.4) fL Immature Gran % (0-4) % Seg Neutrophils % % Lymphocytes % % Monocytes % % Eosinophils % % Basophils % % Neutrophils # (1.6-8.9) K/mcL Lymphocytes # (0.6-4.6) K/mcL Monocytes # (0.0-1.3) K/mcL Eosinophils # (0.0-0.6) K/mcL Basophils # (0.0-0.2) K/mcL Sodium (136-145) mEq/L Potassium (3.5-5.1) mEq/L Chloride (98-107) mEq/L Carbon Dioxide (23-29) mEq/L BUN (8-23) mg/dL Creatinine (0.60-1.20) mg/dL Est GFR ( Amer) (> 60) Est GFR (Non-Af Amer) (> 60) BUN/Creatinine Ratio (6-26) Glucose (70-105) mg/dL Calculated Osmolality (280-300) Lactic Acid 2.7 H (0.5-2.2) mmol/L Calcium (8.6-10.3) mg/dL Phosphorus (2.7-4.5) mg/dL Magnesium (1.6-2.6) mg/dL Total Bilirubin (0.3-1.0) mg/dL Direct Bilirubin (0.0-0.2) mg/dL Indirect Bilirubin (0.0-1.2) mg/dL AST (13-39) Units/L ALT (7-52) Units/L Alkaline Phosphatase (34-104) Units/L Troponin I (< 0.04) ng/mL Serum Total Protein (6.4-8.9) g/dL Albumin (3.5-5.7) g/dL Globulin (2.4-3.5) g/dL Albumin/Globulin Ratio (1.1-2.2) Urine Color (Yellow) Urine Clarity (Clear) Urine pH (5.0-8.0) pH Units Ur Specific [place] (1.010-1.025) Urine Protein (Neg-Trace) mg/dL Urine Glucose (UA) (Normal) mg/dL Urine Ketones (Negative) mg/dL Urine Blood (Negative) Urine Nitrite (Negative) Urine Bilirubin (Negative) Urine Urobilinogen (Normal) mg/dL Ur Leukocyte Esterase (Negative) Urine Microscopic RBC (0-3) per hpf Urine Microscopic WBC (0-3) per hpf Ur Squamous Epith Cells (None-Few) per lpf Urine Bacteria (None-Few) per hpf Hyaline Casts (None-Few) per lpf Ur Culture Indicated? (NO) Critical Care Time Critical Care Time: Yes Total Critical Care Time: 35 Attestation: I exam Critical care performed: Time is exclusive of separately billable procedures. Time includes: direct patient care, patient reassessment, coordination of patient care, interpretation of data (laboratory data, radiology data, and respiratory data), review of patient's medical records, medical consultation and documentation of patient care. Procedures included in critical care time: Procedures excluded from critical care time: . Attestation Statement - Attestation Attestation: I examined this patient and my medical decision-making was reviewed with the Resident Physician. I agree with the documented findings, disposition and treatment plan as described except to the extent set forth below. Patient to the ED with altered mental status. Family present states she has been talking out of her head at the half-way. She has had a fever. Concern for infection. Patient is status post hip surgery within the past week. Patient awake alert stating she spinal or examination. She is noted to be febrile here. Lungs clear. Plan. Altered mental status/septic workup. Likely admission. Patient with UTI sepsis. Does not meet criteria. IV antibiotic given. Admitted to the hospitalist.
[2017-09-28] MEDS ORDERED: Aztreonam 2,000 MG in 0.9 % Sodium Chloride Mini Bag 100 ML IVPB ONE (22:15)
[2017-09-28 22:23] LABS: Alanine Aminotransferase 16 Units/L (7-52); Albumin/Globulin Ratio 1.6 (1.1-2.2); Alkaline Phosphatase 78 Units/L (34-104); Aspartate Amino Transferase 30 Units/L (13-39); BUN/Creatinine Ratio 11 (6-26); Bilirubin,Indirect 0.6 mg/dL (0.0-1.2); Bilirubin,Total 0.6 mg/dL (0.3-1.0); Blood Urea Nitrogen 9 mg/dL (8-23); Calcium 9.1 mg/dL (8.6-10.3); Carbon Dioxide 32 mEq/L (23-29); Chloride 97 mEq/L (98-107); Globulin 2.5 g/dL (2.4-3.5); Glucose 195 mg/dL (70-105); Magnesium 1.8 mg/dL (1.6-2.6); Osmolality,Calculated 288 (280-300); Phosphorous 1.8 mg/dL (2.7-4.5); Potassium 3.5 mEq/L (3.5-5.1); Sodium 137 mEq/L (136-145); Total Protein 6.5 g/dL (6.4-8.9); Troponin I < 0.03 ng/mL (< 0.04); eGFR For African Americans > 60 (> 60); eGFR For Non-African Americans > 60 (> 60)
[2017-09-29] MEDS ORDERED: Naloxone 0.4 MG/ML INJ IVP PRN (00:31)
[2017-09-29] MEDS ORDERED: Potassium Phosphate 44 MEQ in 0.9 % Sodium Chloride 250 ML IVPB ONE (00:36)
[2017-09-29] MEDS ORDERED: Ipratropium/Albuterol Neb 3 ML IH PRN (00:38)
[2017-09-29] MEDS ORDERED: Ringers Solution, Lactated 1,000 ML IVC SCH (00:45)
--- NOTE | 2017-09-29 00:48 | Internal Med History&Physical ---
Date of Encounter: 09/29/17 Time of Encounter: 00:40 Internal Medicine - H&P: HPI Chief complaint: Fever, confusion Admitted From: Emergency Dept Plans for Post Hospital Care: Transfer Custodial Facility History of present illness: Ms. Pickett is a 77 year old female with h/o- COPD, HTN, recent left hip fracture s /p repair, was sent from rehab facility, with c/o- confusion and fever. Patient currently is alert and oriented and reports she does not know exactly why she was sent to ER. Per ER notes, her family members were concerned due to low grade fever and confusion for the last 2-3 days. Patient reports low grade fever with some dry cough and shortness of breath that is no worse than usual for her. SHe does report new onset leg swelling. No chest pain, palpitations, dizziness, syncope. No nausea, vomiting, abdominal pain, has chronic diarrhea. She denies urinary complaints of dysuria, burning micturition, hematuria. Past Med Surg Social Fam HX - Past Medical History Source: patient Medical history: COPD, coronary artery disease, CVA, DVT, GERD, hyperlipidemia, hypertension, TIA Psychiatric history: anxiety, depression - Past Surgical History Surgical History: appendectomy, cholecystectomy, hysterectomy, knee replacement (right), orthopedic, other (back surgery, left hip repair) - Social History Smoking Status: Former smoker Smokeless Tobacco Status: No Alcohol use: none Drug use: none Occupational status: retired Current living situation: [facility] Activity Level: Uses cane/walker Recent Out of Country Travel Within the Last 8 Weeks: No Exposure or Possible Exposure to Illness During Travel: No - Family History Mother Living Status: Hx Family Cardiac Disorders: Yes Hx Family Cancer: Yes (colon) Father Living Status: Hx Family Cardiac Disorders: Yes Daughter Hx Family Cardiac Disorders: Yes (HTN) Internal Medicine - H&P: Meds Clopidogrel [Plavix] 75 mg PO DAILY 05/09/15 [History] Albuterol Sulfate [Albuterol Inhaler] 2 puff IH Q4H PRN 03/15/16 [History] Montelukast [Singulair] 10 mg PO DAILY 03/15/16 [History] Quetiapine Fumarate [Seroquel] 100 mg PO HS 03/15/16 [History] Tizanidine HCl [Zanaflex] 4 mg PO HS 03/15/16 [History] Albuterol Neb [Proventil Neb] 1.5 ml IH Q4H PRN 09/18/17 [History] Carbidopa/Levodopa [Carbidopa-Levo 25-100 mg Odt] 1 tab PO TID 09/18/17 [History ] Carvedilol [Coreg] 6.25 mg PO DAILY 09/18/17 [History] Ergocalciferol (VITAMIN D2) [Vitamin D2] 50,000 unit PO WE 09/18/17 [History] Gabapentin [Neurontin] 400 mg PO TID 09/18/17 [History] Mirtazapine [Remeron] 30 mg PO HS 09/18/17 [History] Nitroglycerin [Nitrostat] 0.4 mg SL Q5M PRN 09/18/17 [History] Umeclidinium Brm/Vilanterol Tr [Anoro Ellipta 62.5-25 Mcg INH] 1 puff IH DAILY 09/18/17 [History] cloNIDine HCl [Clonidine HCl] 0.3 mg PO DAILY 09/18/17 [History] hydroCHLOROthiazide [Hydrochlorothiazide] 25 mg PO DAILY 09/18/17 [History] Morphine Sulfate [Arymo ER] 60 mg PO BID 5 Days #10 tab.po.er 09/21/17 [Rx] 3 Allergy/AdvReac Type Severity Reaction Status Date / Time Penicillins Allergy Itching Verified 09/18/17 21:25 Tetracycline Allergy Hallucinati Verified 09/18/17 21:25 ng diazepam [From Valium] AdvReac Unconscious Verified 09/18/17 21:25 hydrocodone [From Vicodin] AdvReac See Verified 09/18/17 21:25 Comments ibuprofen AdvReac Nausea Verified 09/18/17 21:25 simvastatin AdvReac See Verified 09/18/17 21:25 Comments ivp dye Allergy Swelling Uncoded 09/18/17 21:25 of Lip/Tongue/Throat All Systems PM: A 10-system review of systems was performed and is negative for pertinent findings except as documented above in the HPI. - Constitutional Constitutional: chills, fever(s), no night sweats - EENT Eyes: no change in vision, no discharge, no pain, no photophobia Ears: no ear discharge, no ear pain, no tinnitus Nose, mouth and throat: no dysphagia, no nasal discharge, no neck pain, no sore throat - Cardiovascular Cardiovascular ROS IM: no chest pain, no diaphoresis, no dyspnea, no lightheadedness, no palpitations, no syncope - Respiratory Respiratory: cough, dyspnea - Gastrointestinal Gastrointestinal: no abdominal pain, no diarrhea, no hematemesis, no hematochezia, no melena, no nausea, no vomiting - Genitourinary Genitourinary: no change in urinary stream, no dysuria, no flank pain, no hematuria - Musculoskeletal Musculoskeletal ROS IM: no numbness, no tingling - Integumentary Integumentary IM: no rash, no unusual bruising - Neurological Neurological ROS: no confusion, no convulsions, no focal weakness, no numbness, no tingling, no tremor(s) - Hematologic/Lymphatic Hematologic/Lymphatic: no easy bruising - Constitutional Vitals: Temp Pulse Resp BP Pulse Ox 99.4 F 99 15 142/74 95 09/29/17 00:28 09/29/17 00:28 09/29/17 00:28 09/29/17 00:28 09/29/17 00:28 General appearance: Present: A&O X 3, obese, answers questions appropriately - Respiratory Respiratory exam: Present: CTAB. Absent: accessory muscle use, rales, rhonchi, wheezes - Cardiovascular Cardiovascular exam: Present: RRR, +S1, +S2. Absent: diastolic murmur, gallop, rubs, systolic murmur - GI/Abdominal GI/Abdominal exam: Present: normal bowel sounds, soft (obese), no peritoneal signs. Absent: distended, tenderness - Extremities Exam Extremities exam: Present: full ROM, pedal edema (1+ pitting pedal edema B/L), warm, radial pulses palpable and symmetrical. Absent: calf tenderness, cyanotic Additional comments: left lateral hip surgical clips intact; healing well; no cellulitis, mild tenderness and edema and induration over proximal thigh and superficial ecchymoses from previous fall; - Neurological Exam Neurological exam: Present: CN II-XII intact, oriented X3, no focal deficits. Absent: pronater drift, facial droop, speech deficit - Skin Skin exam: Present: dry, intact Internal Med - H&P Results - Labs CBC & Chem 7: 09/28/17 21:51 09/28/17 21:51 - EKG Data -: EKG Interpreted by Myself EKG shows normal: sinus rhythm, ST-T waves (nonspecific changes) Rate: normal - Assessment and plan (1) Pneumonia Current Visit: Yes Status: Suspected Assessment and plan: chest XRay shows no acute infiltrates; patient has fever, cough, dyspnea and hypoxia; continue IV Vancomycin and Levaquin and Cefepime for possible HCAP; f/ up blood cultures; supportive care and supplemental O2; Qualifiers: Pneumonia type: due to unspecified organism Laterality: unspecified laterality Lung location: unspecified part of lung Qualified Code(s): J18.9 - Pneumonia, unspecified organism (2) Sepsis Current Visit: Yes Status: Acute Assessment and plan: presented with fever, tachycardia, confusion and mild lactic acidosis; continue gentle IV hydration and antibiotics, monitor vitals closely; Qualifiers: Sepsis type: sepsis due to unspecified organism Qualified Code(s): A41.9 - Sepsis, unspecified organism (3) UTI (urinary tract infection) Current Visit: Yes Status: Acute Assessment and plan: UA suggestive of UTI; send urine culture; continue IV Levaquin; Qualifiers: Urinary tract infection type: site unspecified Hematuria presence: without hematuria Qualified Code(s): N39.0 - Urinary tract infection, site not specified (4) CAD (coronary artery disease) Current Visit: Yes Status: Chronic Assessment and plan: continue Plavix, beta kavita, statin; Qualifiers: Coronary Disease-Associated Artery/Lesion type: [place] artery [place] vs. transplanted heart: [place] heart Associated angina: without angina Qualified Code(s): I25.10 - Atherosclerotic heart disease of [place] coronary artery without angina pectoris (5) Hip fracture Current Visit: Yes Status: Chronic Assessment and plan: subacute fracture s/p open pinning; Orthopedics f/up; site does not appear infected; PT/OT; pain control with Morphine PO; Qualifiers: Encounter type: subsequent encounter Fracture type: closed Laterality: left Fracture healing: with routine healing Qualified Code(s): S72.002D - Fracture of unspecified part of neck of left femur, subsequent encounter for closed fracture with routine healing (6) Parkinson disease Current Visit: Yes Status: Chronic (7) COPD (chronic obstructive pulmonary disease) Current Visit: Yes Status: Chronic Assessment and plan: not in acute exacerbation; continue PRN breathing treatments, Singulair, ICS; supplemental O2; Qualifiers: COPD type: chronic bronchitis Chronic bronchitis type: simple Qualified Code(s): J41.0 - Simple chronic bronchitis (8) Depression Current Visit: Yes Status: Chronic Qualifiers: Depression Type: unspecified Qualified Code(s): F32.9 - Major depressive disorder, single episode, unspecified (9) HTN (hypertension) Current Visit: Yes Status: Chronic Qualifiers: Hypertension type: essential hypertension Qualified Code(s): I10 - Essential (primary) hypertension - Time Spent With Patient Total time spent is greater than 50% in coordination of care (as documented) at patient's floor/unit and/or counseling patient:
[2017-09-29 01:53] LABS: Basophils % 0.4 %; Eosinophils # 0.3 K/mcL (0.0-0.6); Hematocrit 37.5 % (35.3-44.9); Hemoglobin 11.9 g/dL (11.5-15.4); Immature Granulocytes % 0.3 % (0-4); Lymphocytes # 1.5 K/mcL (0.6-4.6); Lymphocytes % 20.6 %; Mean Corpuscular HGB Conc 31.7 g/dL (31.6-35.5); Mean Corpuscular Hemoglobin 28.6 pg (28.0-33.3); Mean Corpuscular Volume 90.1 fL (83.0-100.0); Mean Platelet Volume 10.8 fL (9.4-12.4); Monocytes # 0.9 K/mcL (0.0-1.3); Neutrophils # 4.7 K/mcL (1.6-8.9); Platelet Count 173 K/mcL (140-400); Red Blood Count 4.16 M/mcL (3.82-4.97); Red Cell Distribution Width 14.1 % (11.5-14.5); Segmented Neutrophils % 62.7 %
[2017-09-29] MEDS: *HR* Morphine Sulfate SR (12 HR) 60 MG TABLET.ER PO SCH ×2 (02:05→21:01)
[2017-09-29] MEDS: Gabapentin 400 MG CAPSULE PO SCH ×4 (02:05→21:01)
[2017-09-29 02:06] LABS: BUN/Creatinine Ratio 13 (6-26); Blood Urea Nitrogen 9 mg/dL (8-23); Calcium 8.3 mg/dL (8.6-10.3); Carbon Dioxide 31 mEq/L (23-29); Chloride 102 mEq/L (98-107); Glucose 160 mg/dL (70-105); Osmolality,Calculated 290 (280-300); Potassium 3.2 mEq/L (3.5-5.1); Sodium 139 mEq/L (136-145); eGFR For African Americans > 60 (> 60); eGFR For Non-African Americans > 60 (> 60)
[2017-09-29] MEDS: *HR* Heparin 5,000 UNIT/ML VIAL SQ SCH ×3 (05:51→21:02)
[2017-09-29] MEDS: Carbidopa/Levodopa 25/100 TABLET PO SCH ×3 (08:37→21:02)
[2017-09-29] MEDS: Cefepime HCl 1,000 MG in Water for inj. (sterile) 20 ML 10 ML IVPB SCH ×3 (08:38→23:38)
[2017-09-29] MEDS: cloNIDine HCl 0.1 MG TABLET PO SCH (08:38)
[2017-09-29] MEDS: Acetaminophen 325 MG TABLET PO PRN (08:49)
[2017-09-29] MEDS ORDERED: ANORO ELLIPTA IH SCH (09:00)
[2017-09-29] MEDS ORDERED: *HR* Morphine Sulfate SR (12 HR) 60 MG TABLET.ER PO SCH (09:00)
[2017-09-29] MEDS ORDERED: Gabapentin 400 MG CAPSULE PO SCH (09:00)
--- NOTE | 2017-09-29 14:57 | Internal Med Progress Note ---
Date of Encounter: 09/29/17 Time of Encounter: 14:55 - Assessment and plan (1) Pneumonia Current Visit: Yes Status: Suspected Assessment and plan: - Clinically suspected pneumonia, continue cefepime and Vanco IV. DC Levaquin. - Symptoms improved. Qualifiers: Pneumonia type: due to unspecified organism Laterality: unspecified laterality Lung location: unspecified part of lung Qualified Code(s): J18.9 - Pneumonia, unspecified organism (2) UTI (urinary tract infection) Current Visit: Yes Status: Acute Assessment and plan: - Urine culture pending. Continue current antibiotics. Qualifiers: Urinary tract infection type: site unspecified Hematuria presence: without hematuria Qualified Code(s): N39.0 - Urinary tract infection, site not specified (3) Sepsis Current Visit: Yes Status: Acute Assessment and plan: - Leukocytosis resolved. Temperature resolved. Lactic acid normal. - Blood culture and urine culture pending. Continue current antibiotics. Qualifiers: Sepsis type: sepsis due to unspecified organism Qualified Code(s): A41.9 - Sepsis, unspecified organism (4) Depression Current Visit: Yes Status: Chronic Assessment and plan: - Continue home medication. Qualifiers: Depression Type: unspecified Qualified Code(s): F32.9 - Major depressive disorder, single episode, unspecified (5) COPD (chronic obstructive pulmonary disease) Current Visit: Yes Status: Chronic Assessment and plan: - Respiratory status stable. Continue current treatment. Qualifiers: COPD type: chronic bronchitis Chronic bronchitis type: simple Qualified Code(s): J41.0 - Simple chronic bronchitis (6) Hip fracture Current Visit: Yes Status: Chronic Assessment and plan: - Repeat x-ray showed normal healing. Patient had an appointment with orthopedics next week. Qualifiers: Encounter type: subsequent encounter Fracture type: closed Laterality: left Fracture healing: with routine healing Qualified Code(s): S72.002D - Fracture of unspecified part of neck of left femur, subsequent encounter for closed fracture with routine healing (7) HTN (hypertension) Current Visit: Yes Status: Chronic Assessment and plan: - BP stable, continue current treatment. Qualifiers: Hypertension type: essential hypertension Qualified Code(s): I10 - Essential (primary) hypertension (8) CAD (coronary artery disease) Current Visit: Yes Status: Chronic Assessment and plan: - No chest pain, continue Plavix. Qualifiers: Coronary Disease-Associated Artery/Lesion type: [place] artery [place] vs. transplanted heart: [place] heart Associated angina: without angina Qualified Code(s): I25.10 - Atherosclerotic heart disease of [place] coronary artery without angina pectoris (9) Parkinson disease Current Visit: Yes Status: Chronic Assessment and plan: - Continue home medication. - Time Spent With Patient Total time spent is greater than 50% in coordination of care (as documented) at patient's floor/unit and/or counseling patient: Greater than 35 minutes - Subjective Interval history: Patient seen and examined in the room, her overall she feels better. She denies fever, chills, or night sweats. - Constitutional Vitals: Temp Pulse Resp BP Pulse Ox 98.6 F 89 18 100/71 94 09/29/17 11:08 09/29/17 11:08 09/29/17 11:08 09/29/17 11:08 09/29/17 11:08 General appearance: Present: A&O X 3, obese, answers questions appropriately Exam: PHYSICAL EXAMINATION: GENERAL APPEARANCE: The patient is alert, oriented and in no acute distress. HEENT: Head is normocephalic. The sinuses are nontender. Pupils are equal and reactive. The nares are patent. Oropharynx clear without lesions. NECK: Supple without lymphadenopathy. HEART: Regular rate and rhythm. LUNGS: No crackles or wheezes are heard. ABDOMEN: Soft, nontender, nondistended with good bowel sounds heard. Inguinal area is normal. EXTREMITIES: Without cyanosis, clubbing or edema. NEUROLOGICAL: Gross nonfocal. SKIN: Warm and dry without any rash. Internal Medicine: Result - Labs CBC & Chem 7: 09/29/17 01:38 09/29/17 01:38 Labs: Short CBC 09/29/17 Range/Units 01:38 WBC 7.4 (4.3-11.1) K/mcL Hgb 11.9 (11.5-15.4) g/dL Hct 37.5 (35.3-44.9) % Plt Count 173 (140-400) K/mcL Neutrophils # 4.7 (1.6-8.9) K/mcL BMP 09/29/17 01:38 Sodium 139 Potassium 3.2 L Chloride 102 Carbon Dioxide 31 H BUN 9 Creatinine 0.71 Glucose 160 H Calcium 8.3 L - Impressions Impressions Echocardiogram 09/29/17 00:37 Impressions: LVEF 60-65%. Mild left ventricular diastolic dysfunction. Normal right ventricular structure and function. Mild aortic regurgitation. Mild mitral regurgitation. Mild tricuspid regurgitation. No pulmonary hypertension. Left Ventricular Wall Motion: Rest Echo Findings The mid inferior lateral and basal inferior lateral narayan were not visualized. All other wall segments showed normal motion. Findings: Study Quality * Technically challenging due to body habitus. ECG Findings * Normal sinus rhythm. Left Ventricle * LVEF 60-65%. * Mild left ventricular diastolic dysfunction. * Normal LV chamber size, wall thickness and function. Right Ventricle * Normal right ventricular structure and function. Left Atrium * Normal left atrial size. Right Atrium * Normal right atrial size. Aortic Valve * Aortic valve not well visualized. * No aortic stenosis. * Mild aortic regurgitation. Mitral Valve * Normal mitral valve structure. * No mitral stenosis. * Mild mitral regurgitation. Tricuspid Valve * Tricuspid valve not well visualized. * Mild tricuspid regurgitation. * Estimated RA pressure is 3 mmHg. * Estimated RVSP is 25 mmHg. * No pulmonary hypertension. Pulmonic Valve * Pulmonic valve is not well visualized. * No pulmonic stenosis. * No pulmonic regurgitation. Pulmonary Artery * Pulmonary artery not well visualized. Aorta * Not well visualized. Pericardium * There is no pericardial effusion present. Interatrial Septum * No evidence of PFO by color Doppler. IVC * Normal IVC dimensions and inspiratory collapse. Consult Discharge Plan - Plan Referrals: Ely Dowling CNP [Primary Care Provider] -
[2017-09-29] MEDS: tiZANidine 4 MG TABLET PO SCH (21:02)
[2017-09-29] MEDS: Mirtazapine 15 MG TABLET PO SCH (21:02)
[2017-09-29] MEDS ORDERED: Levofloxacin 750 MG/150 ML 750 MG/150 ML BAG IVPB SCH (23:00)
[2017-09-30 05:13] LABS: Basophils % 0.6 %; Eosinophils # 0.5 K/mcL (0.0-0.6); Eosinophils % 9.3 %; Hematocrit 35.9 % (35.3-44.9); Hemoglobin 11.4 g/dL (11.5-15.4); Immature Granulocytes % 0.4 % (0-4); Lymphocytes # 1.2 K/mcL (0.6-4.6); Lymphocytes % 22.9 %; Mean Corpuscular HGB Conc 31.8 g/dL (31.6-35.5); Mean Corpuscular Hemoglobin 28.6 pg (28.0-33.3); Mean Platelet Volume 11.1 fL (9.4-12.4); Monocytes # 0.6 K/mcL (0.0-1.3); Monocytes % 11.7 %; Neutrophils # 2.8 K/mcL (1.6-8.9); Platelet Count 180 K/mcL (140-400); Red Blood Count 3.99 M/mcL (3.82-4.97); Red Cell Distribution Width 14.1 % (11.5-14.5); Segmented Neutrophils % 55.1 %
[2017-09-30 05:29] LABS: BUN/Creatinine Ratio 14 (6-26); Blood Urea Nitrogen 9 mg/dL (8-23); Calcium 8.4 mg/dL (8.6-10.3); Carbon Dioxide 31 mEq/L (23-29); Chloride 104 mEq/L (98-107); Glucose 129 mg/dL (70-105); Osmolality,Calculated 292 (280-300); Potassium 3.6 mEq/L (3.5-5.1); Sodium 141 mEq/L (136-145); eGFR For African Americans > 60 (> 60); eGFR For Non-African Americans > 60 (> 60)
[2017-09-30] MEDS: *HR* Heparin 5,000 UNIT/ML VIAL SQ SCH ×3 (06:41→20:55)
[2017-09-30] MEDS ORDERED: Albuterol 2.5 MG/3 ML NEBULIZER IH PRN (07:56)
[2017-09-30] MEDS: cloNIDine HCl 0.1 MG TABLET PO SCH (08:22)
[2017-09-30] MEDS: Cefepime HCl 1,000 MG in Water for inj. (sterile) 20 ML 10 ML IVPB SCH ×3 (08:22→23:42)
[2017-09-30] MEDS: Gabapentin 400 MG CAPSULE PO SCH ×3 (08:22→20:54)
[2017-09-30] MEDS: Carbidopa/Levodopa 25/100 TABLET PO SCH ×3 (08:22→20:54)
[2017-09-30] MEDS: *HR* Morphine Sulfate SR (12 HR) 60 MG TABLET.ER PO SCH ×2 (08:23→20:54)
[2017-09-30] MEDS: Acetaminophen 325 MG TABLET PO PRN (08:24)
[2017-09-30] MEDS: Tiotropium 18 MCG inhalation IH SCH (11:26)
--- NOTE | 2017-09-30 11:55 | Internal Med Progress Note ---
Date of Encounter: 09/30/17 Time of Encounter: 11:53 - Assessment and plan (1) Obesity (BMI 30.0-34.9) Current Visit: No Status: Chronic Assessment and plan: chronic (2) HTN (hypertension) Current Visit: Yes Status: Chronic Assessment and plan: well controlled Qualifiers: Hypertension type: essential hypertension Qualified Code(s): I10 - Essential (primary) hypertension (3) CAD (coronary artery disease) Current Visit: Yes Status: Chronic Assessment and plan: no chest pain Qualifiers: Coronary Disease-Associated Artery/Lesion type: [place] artery [place] vs. transplanted heart: [place] heart Associated angina: without angina Qualified Code(s): I25.10 - Atherosclerotic heart disease of [place] coronary artery without angina pectoris (4) Parkinson disease Current Visit: Yes Status: Chronic (5) Sepsis Current Visit: Yes Status: Acute Assessment and plan: resolving Qualifiers: Sepsis type: sepsis due to unspecified organism Qualified Code(s): A41.9 - Sepsis, unspecified organism (6) UTI (urinary tract infection) Current Visit: Yes Status: Acute Assessment and plan: cultures grow gram positive cocci Qualifiers: Urinary tract infection type: acute cystitis Hematuria presence: without hematuria Qualified Code(s): N30.00 - Acute cystitis without hematuria (7) Pneumonia Current Visit: Yes Status: Acute Assessment and plan: Patient started on cefepime and vancomycin because a recent hospital adm Qualifiers: Pneumonia type: due to unspecified organism Laterality: unspecified laterality Lung location: unspecified part of lung Qualified Code(s): J18.9 - Pneumonia, unspecified organism - Time Spent With Patient Total time spent is greater than 50% in coordination of care (as documented) at patient's floor/unit and/or counseling patient: - Subjective Interval history: Patient with history of COPD, hypertension, CVA, Parkinson, patient had recent hip fracture surgery patient admitted with confusion fever cough and shortness of breath with diagnosis of pneumonia and sepsis and also has UTI placed on cefepime and vancomycin urine is growing gram-positive cocci today patient says she feels better she is no longer confused - Constitutional Vitals: Temp Pulse Resp BP Pulse Ox 98.2 F 65 18 91/47 93 09/30/17 11:19 09/30/17 11:19 09/30/17 11:19 09/30/17 11:19 09/30/17 11:19 General appearance: Present: A&O X 3, obese, answers questions appropriately - Head Head exam: Present: atraumatic, normocephalic - Neck Neck exam general surgery: Present: supple, trachea midline. Absent: lymphadenopathy - Respiratory Respiratory exam: Present: rhonchi - Cardiovascular Cardiovascular exam: Present: RRR, +S1, +S2. Absent: diastolic murmur, gallop, rubs, systolic murmur - GI/Abdominal GI/Abdominal exam: Present: normal bowel sounds, soft, no peritoneal signs. Absent: distended, tenderness Internal Medicine: Result - Labs CBC & Chem 7: 09/30/17 04:52 09/30/17 04:52 Labs: Short CBC 09/30/17 Range/Units 04:52 WBC 5.2 (4.3-11.1) K/mcL Hgb 11.4 L (11.5-15.4) g/dL Hct 35.9 (35.3-44.9) % Plt Count 180 (140-400) K/mcL Neutrophils # 2.8 (1.6-8.9) K/mcL BMP 09/30/17 04:52 Sodium 141 Potassium 3.6 Chloride 104 Carbon Dioxide 31 H BUN 9 Creatinine 0.64 Glucose 129 H Calcium 8.4 L - Impressions Impressions Echocardiogram 09/29/17 00:37 Impressions: LVEF 60-65%. Mild left ventricular diastolic dysfunction. Normal right ventricular structure and function. Mild aortic regurgitation. Mild mitral regurgitation. Mild tricuspid regurgitation. No pulmonary hypertension. Left Ventricular Wall Motion: Rest Echo Findings The mid inferior lateral and basal inferior lateral narayan were not visualized. All other wall segments showed normal motion. Findings: Study Quality * Technically challenging due to body habitus. ECG Findings * Normal sinus rhythm. Left Ventricle * LVEF 60-65%. * Mild left ventricular diastolic dysfunction. * Normal LV chamber size, wall thickness and function. Right Ventricle * Normal right ventricular structure and function. Left Atrium * Normal left atrial size. Right Atrium * Normal right atrial size. Aortic Valve * Aortic valve not well visualized. * No aortic stenosis. * Mild aortic regurgitation. Mitral Valve * Normal mitral valve structure. * No mitral stenosis. * Mild mitral regurgitation. Tricuspid Valve * Tricuspid valve not well visualized. * Mild tricuspid regurgitation. * Estimated RA pressure is 3 mmHg. * Estimated RVSP is 25 mmHg. * No pulmonary hypertension. Pulmonic Valve * Pulmonic valve is not well visualized. * No pulmonic stenosis. * No pulmonic regurgitation. Pulmonary Artery * Pulmonary artery not well visualized. Aorta * Not well visualized. Pericardium * There is no pericardial effusion present. Interatrial Septum * No evidence of PFO by color Doppler. IVC * Normal IVC dimensions and inspiratory collapse. Consult Discharge Plan - Plan Referrals: Ivania Pate, JESS [Physician Medical Manager] - 10/09/17 11:30 am (move upon your request) Ely Dowling CNP [Primary Care Provider] -
[2017-09-30] MEDS: tiZANidine 4 MG TABLET PO SCH (20:54)
[2017-09-30] MEDS: Mirtazapine 15 MG TABLET PO SCH (20:54)
[2017-10-01] MEDS: *HR* Heparin 5,000 UNIT/ML VIAL SQ SCH ×3 (05:35→20:59)
[2017-10-01] MEDS: Tiotropium 18 MCG inhalation IH SCH (07:39)
[2017-10-01] MEDS: Gabapentin 400 MG CAPSULE PO SCH ×3 (08:00→21:00)
[2017-10-01] MEDS: cloNIDine HCl 0.1 MG TABLET PO SCH (08:00)
[2017-10-01] MEDS: *HR* Morphine Sulfate SR (12 HR) 60 MG TABLET.ER PO SCH ×2 (08:00→21:00)
[2017-10-01] MEDS: Cefepime HCl 1,000 MG in Water for inj. (sterile) 20 ML 10 ML IVPB SCH ×3 (08:01→23:34)
[2017-10-01] MEDS: Carbidopa/Levodopa 25/100 TABLET PO SCH ×3 (08:01→20:59)
[2017-10-01] MEDS ORDERED: Furosemide 40 MG/4 ML VIAL IVP ONE (08:51)
--- NOTE | 2017-10-01 08:56 | Internal Med Progress Note ---
Date of Encounter: 10/01/17 Time of Encounter: 08:54 - Assessment and plan (1) Obesity (BMI 30.0-34.9) Current Visit: No Status: Chronic Assessment and plan: chronic (2) HTN (hypertension) Current Visit: Yes Status: Chronic Assessment and plan: well controlled Qualifiers: Hypertension type: essential hypertension Qualified Code(s): I10 - Essential (primary) hypertension (3) CAD (coronary artery disease) Current Visit: Yes Status: Chronic Assessment and plan: no chest pain Qualifiers: Coronary Disease-Associated Artery/Lesion type: [place] artery [place] vs. transplanted heart: [place] heart Associated angina: without angina Qualified Code(s): I25.10 - Atherosclerotic heart disease of [place] coronary artery without angina pectoris (4) Parkinson disease Current Visit: Yes Status: Chronic Assessment and plan: chronic (5) Sepsis Current Visit: Yes Status: Acute Assessment and plan: blood cultures so far negative Qualifiers: Sepsis type: sepsis due to unspecified organism Qualified Code(s): A41.9 - Sepsis, unspecified organism (6) UTI (urinary tract infection) Current Visit: Yes Status: Acute Assessment and plan: on rocephin Qualifiers: Urinary tract infection type: acute cystitis Hematuria presence: without hematuria Qualified Code(s): N30.00 - Acute cystitis without hematuria (7) Pneumonia Current Visit: Yes Status: Acute Assessment and plan: clinically more wheezing and sob added solumedrol and increased duoneb and consult pulm vanco stppped low grade fever Qualifiers: Pneumonia type: due to unspecified organism Laterality: unspecified laterality Lung location: unspecified part of lung Qualified Code(s): J18.9 - Pneumonia, unspecified organism - Time Spent With Patient Total time spent is greater than 50% in coordination of care (as documented) at patient's floor/unit and/or counseling patient: - Subjective Interval history: Patient with history of COPD, hypertension, CVA, Parkinson, patient had recent hip fracture surgery patient admitted with confusion fever cough and shortness of breath with diagnosis of pneumonia and sepsis and also has UTI placed on cefepime and vancomycin urine is growing gram-positive cocci today patient says she feels better she is no longer confused today patient still sob and some leg edema no chest pain low grade fever 99.8 exam howard still some wheezing will consult pulm - Constitutional Vitals: Temp Pulse Resp BP Pulse Ox 98.4 F 70 20 101/53 91 10/01/17 07:04 10/01/17 07:04 10/01/17 07:45 10/01/17 07:04 10/01/17 07:45 General appearance: Present: mild distress, A&O X 3, obese, answers questions appropriately - Eye Eye exam: Present: PERRL, conjuntiva pink, sclera anicteric Pupils: Present: PERRL - Neck Neck exam general surgery: Present: supple, trachea midline. Absent: lymphadenopathy - Respiratory Respiratory exam: Present: prolonged expiratory phase, rhonchi, wheezes - Cardiovascular Cardiovascular exam: Present: RRR, +S1, +S2. Absent: diastolic murmur, gallop, rubs, systolic murmur - GI/Abdominal GI/Abdominal exam: Present: normal bowel sounds, soft, no peritoneal signs. Absent: distended, tenderness - Extremities Exam Extremities exam: Present: warm, radial pulses palpable and symmetrical. Absent : calf tenderness, cyanotic, pedal edema Internal Medicine: Result - Labs CBC & Chem 7: 09/30/17 04:52 09/30/17 04:52 Consult Discharge Plan - Plan Referrals: Ivania Pate PAC [Physician Rail Gang Supervisor] - 10/09/17 11:30 am (move upon your request) Ely Dowling CNP [Primary Care Provider] -
--- NOTE | 2017-10-01 10:20 | Pulmonology Consult Note ---
Date of Encounter: 10/01/17 Time of Encounter: 12:35 Assessment and Plan (1) COPD (chronic obstructive pulmonary disease) Current Visit: Yes Status: Chronic Patient with history of COPD and I do not have any information about her pulmonary function test and she stated that she has been seeing another timber estimator in [facility]. They have offered her if she is interested we will be happy to take care of her as outpatient and she will need a workup. She is on bronchodilators and I do not feel this is as COPD exacerbation and to stop systemic steroid. Patient to be qualified for oxygen needs. Thank you for the consultation please call for any questions. Qualifiers: COPD type: chronic bronchitis Chronic bronchitis type: simple Qualified Code(s): J41.0 - Simple chronic bronchitis (2) Pneumonia Current Visit: Yes Status: Ruled-out There is no evidence of pneumonia on chest x-ray or clinically. Qualifiers: Pneumonia type: due to unspecified organism Laterality: unspecified laterality Lung location: unspecified part of lung Qualified Code(s): J18.9 - Pneumonia, unspecified organism History of Present Illness Consult date: 10/01/17 Requesting physician: Brenton Lyons Reason for consult: COPD, pneumonia Chief complaint: Fever confusion History of present illness: This is pleasant 77-year-old female and she is poor historian with history of COPD and she stated she has seen a timber estimator in a different clinic and she does not remember about her lung function or which inhaler she is using. Patient has history of smoking in the past. Patient stated she is not sure why she is here and she feels she can go home. Patient was sent from rehabilitation facility due to confusion and fever and she is being diagnosed with sepsis and she is being treated with broad-spectrum antibiotics. At this time she denies any significant productive cough or wheezing and she denies any hemoptysis. The patient has no chest pain and she has no hematuria. The patient stated she is not on oxygen at home. There is no family available at this time to take more reliable history from patient. She is essentially denying any symptoms at this time. Past Med Surg Social Fam HX - Past Medical History Medical history: COPD, coronary artery disease, CVA, DVT, GERD, hyperlipidemia, hypertension, TIA Psychiatric history: anxiety, depression - Past Surgical History Surgical History: appendectomy, cholecystectomy, hysterectomy - Social History Smoking Status: Never smoker Smokeless Tobacco Status: No Alcohol use: none Drug use: none - Family History Mother Living Status: Hx Family Cardiac Disorders: Yes Hx Family Cancer: Yes (colon) Father Living Status: Hx Family Cardiac Disorders: Yes Daughter Hx Family Cardiac Disorders: Yes (HTN) Medications and Allergies Clopidogrel [Plavix] 75 mg PO DAILY 05/09/15 [History] Albuterol Sulfate [Albuterol Inhaler] 2 puff IH Q4H PRN 03/15/16 [History] Montelukast [Singulair] 10 mg PO DAILY 03/15/16 [History] Quetiapine Fumarate [Seroquel] 100 mg PO HS 03/15/16 [History] Tizanidine HCl [Zanaflex] 4 mg PO HS 03/15/16 [History] Albuterol Neb [Proventil Neb] 1.5 ml IH Q4H PRN 09/18/17 [History] Carvedilol [Coreg] 6.25 mg PO DAILY 09/18/17 [History] Ergocalciferol (VITAMIN D2) [Vitamin D2] 50,000 unit PO WE 09/18/17 [History] Gabapentin [Neurontin] 400 mg PO TID 09/18/17 [History] Mirtazapine [Remeron] 30 mg PO HS 09/18/17 [History] Nitroglycerin [Nitrostat] 0.4 mg SL Q5M PRN 09/18/17 [History] Umeclidinium Brm/Vilanterol Tr [Anoro Ellipta 62.5-25 Mcg INH] 1 puff IH DAILY 09/18/17 [History] cloNIDine HCl [Clonidine HCl] 0.3 mg PO DAILY 09/18/17 [History] hydroCHLOROthiazide [Hydrochlorothiazide] 25 mg PO DAILY 09/18/17 [History] Morphine Sulfate [Arymo ER] 60 mg PO BID 5 Days #10 tab.po.er 09/21/17 [Rx] Carbidopa/Levodopa 25/100 [Sinemet 25/100] 1 each PO TID 09/29/17 [History] 3 Allergy/AdvReac Type Severity Reaction Status Date / Time Penicillins Allergy Itching Verified 09/18/17 21:25 Tetracycline Allergy Hallucinati Verified 09/18/17 21:25 ng diazepam [From Valium] AdvReac Unconscious Verified 09/18/17 21:25 hydrocodone [From Vicodin] AdvReac See Verified 09/18/17 21:25 Comments ibuprofen AdvReac Nausea Verified 09/18/17 21:25 simvastatin AdvReac See Verified 09/18/17 21:25 Comments ivp dye Allergy Swelling Uncoded 09/18/17 21:25 of Lip/Tongue/Throat All Systems: The remainder of the systems were reviewed and are negative Physical Examination Vital Signs: Vital Signs, Last 4 Hours Temp Pulse Resp BP Pulse Ox 10/01/17 07:45 20 91 10/01/17 07:04 98.4 F 70 16 101/53 90 General appearance: no acute distress Eyes: nonicteric ENT: oropharynx moist Mallampati (class): 3 Neck: supple Effort: normal Auscultation: right: rhonchi, bilateral: diminished breath sounds Percussion: bilateral: not dull Cardiovascular: regular rate and rhythm Gastrointestinal: normoactive bowel sounds, non-distended Extremities: no cyanosis, edema non-focal exam depressed Results - Laboratory Findings CBC and BMP: 09/30/17 04:52 09/30/17 04:52 Abnormal lab findings: Abnormal lab results Hgb 11.4 g/dL (11.5-15.4) L 09/30/17 04:52 Carbon Dioxide 31 mEq/L (23-29) H 09/30/17 04:52 Glucose 129 mg/dL (70-105) H 09/30/17 04:52 Calcium 8.4 mg/dL (8.6-10.3) L 09/30/17 04:52 Phosphorus 1.8 mg/dL (2.7-4.5) L 09/28/17 21:51 B-Natriuretic Peptide 145 pg/mL (Less than 100) H 10/01/17 09:05 Urine Clarity Cloudy (Clear) A 09/28/17 21:37 Urine Ketones Trace mg/dL (Negative) H 09/28/17 21:37 Urine Nitrite Positive (Negative) A 09/28/17 21:37 Ur Leukocyte Esterase Large (Negative) H 09/28/17 21:37 Urine Microscopic RBC 3-5 per hpf (0-3) H 09/28/17 21:37 Urine Microscopic WBC TNTC per hpf (0-3) H 09/28/17 21:37 Ur Squamous Epith Cells Many per lpf (None-Few) H 09/28/17 21:37 Ur Culture Indicated? NO. (NO) A 09/28/17 21:37 - Diagnostic Findings Chest x-ray: report reviewed, image reviewed - Clinical Findings Intake & Output: Intake & Output 09/30/17 10/01/17 10/01/17 23:59 07:59 15:59 Intake Total Balance Weight 103.1 kg Consult Discharge Plan - Plan Referrals: Ivania Pate, PAC [Physician Construction Mgr] - 10/09/17 11:30 am (move upon your request) Ely Dowling CNP [Primary Care Provider] -
[2017-10-01] MEDS: Ipratropium/Albuterol Neb 3 ML IH SCH ×4 (11:14→23:45)
[2017-10-01] MEDS ORDERED: MethylPREDNISolone 40 MG/ML VIAL IVP SCH (16:00)
--- NOTE | 2017-10-01 16:56 | Electrocardiograph Report ---
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
[2017-10-01] MEDS: Acetaminophen 325 MG TABLET PO PRN (21:00)
[2017-10-01] MEDS: tiZANidine 4 MG TABLET PO SCH (21:00)
[2017-10-01] MEDS: Mirtazapine 15 MG TABLET PO SCH (21:00)
[2017-10-02] MEDS: Ipratropium/Albuterol Neb 3 ML IH SCH ×6 (03:30→23:41)
[2017-10-02] MEDS: *HR* Heparin 5,000 UNIT/ML VIAL SQ SCH ×3 (05:28→22:50)
--- NOTE | 2017-10-02 07:27 | Internal Med Progress Note ---
Date of Encounter: 10/02/17 Time of Encounter: 07:00 - Assessment and plan (1) Acute respiratory failure with hypoxia Current Visit: Yes Status: Acute Assessment and plan: Currently on 3L nasal cannula. V/q showed very low probability for PE. Continue supportive management. may need to be discharged on home oxygen (2) Sepsis Current Visit: Yes Status: Acute Assessment and plan: -Blood culutres negative. Urine cultures positive for enteroccocus. Contnue current antibiotic regimen with vancomycin. d/c cefepime Qualifiers: Sepsis type: sepsis due to unspecified organism Qualified Code(s): A41.9 - Sepsis, unspecified organism (3) Pneumonia Current Visit: Yes Status: Ruled-out Assessment and plan: - Clinically suspected pneumonia, continue cefepime and Vanco IV. Completed course of cefepime Qualifiers: Pneumonia type: due to unspecified organism Laterality: unspecified laterality Lung location: unspecified part of lung Qualified Code(s): J18.9 - Pneumonia, unspecified organism (4) Depression Current Visit: Yes Status: Chronic Assessment and plan: - Continue home medication. Qualifiers: Depression Type: unspecified Qualified Code(s): F32.9 - Major depressive disorder, single episode, unspecified (5) COPD (chronic obstructive pulmonary disease) Current Visit: Yes Status: Chronic Assessment and plan: - Respiratory status stable. Continue current treatment. Qualifiers: COPD type: chronic bronchitis Chronic bronchitis type: simple Qualified Code(s): J41.0 - Simple chronic bronchitis (6) Hip fracture Current Visit: Yes Status: Chronic Assessment and plan: - Repeat x-ray showed normal healing. Patient has an appointment with orthopedics next week. Stable Qualifiers: Encounter type: subsequent encounter Fracture type: closed Laterality: left Fracture healing: with routine healing Qualified Code(s): S72.002D - Fracture of unspecified part of neck of left femur, subsequent encounter for closed fracture with routine healing (7) HTN (hypertension) Current Visit: Yes Status: Chronic Assessment and plan: - BP stable, continue current treatment. Qualifiers: Hypertension type: essential hypertension Qualified Code(s): I10 - Essential (primary) hypertension (8) CAD (coronary artery disease) Current Visit: Yes Status: Chronic Assessment and plan: - No chest pain, continue Plavix. Qualifiers: Coronary Disease-Associated Artery/Lesion type: [place] artery [place] vs. transplanted heart: [place] heart Associated angina: without angina Qualified Code(s): I25.10 - Atherosclerotic heart disease of [place] coronary artery without angina pectoris (9) Parkinson disease Current Visit: Yes Status: Chronic Assessment and plan: - Continue home medication. (10) UTI (urinary tract infection) Current Visit: Yes Status: Acute Assessment and plan: - Urine culture positive for enterococus sensitive to vancomycin. Continue current antibiotics. Qualifiers: Urinary tract infection type: acute cystitis Hematuria presence: without hematuria Qualified Code(s): N30.00 - Acute cystitis without hematuria - Time Spent With Patient Total time spent is greater than 50% in coordination of care (as documented) at patient's floor/unit and/or counseling patient: - Subjective Interval history: NO acute events overnight - Constitutional Vitals: Temp Pulse Resp BP Pulse Ox 98.4 F 74 17 112/67 93 10/02/17 04:10 10/02/17 04:55 10/02/17 04:10 10/02/17 04:55 10/02/17 04:10 General appearance: Present: mild distress, A&O X 3, obese, answers questions appropriately - Head Head exam: Present: atraumatic, normocephalic - Eye Eye exam: Present: PERRL, conjuntiva pink, sclera anicteric Pupils: Present: PERRL - Neck Neck exam general surgery: Present: supple, trachea midline. Absent: lymphadenopathy - Respiratory Respiratory exam: Present: CTAB. Absent: accessory muscle use, rales, rhonchi, wheezes - Cardiovascular Cardiovascular exam: Present: RRR, +S1, +S2. Absent: diastolic murmur, gallop, rubs, systolic murmur - GI/Abdominal GI/Abdominal exam: Present: normal bowel sounds, soft, no peritoneal signs. Absent: distended, tenderness - Extremities Exam Extremities exam: Present: warm, radial pulses palpable and symmetrical. Absent : calf tenderness, cyanotic, pedal edema - Neurological Exam Neurological exam: Present: CN II-XII intact, oriented X3, no focal deficits. Absent: pronater drift, facial droop, speech deficit - Skin Skin exam: Present: dry, intact Internal Medicine: Result - Labs CBC & Chem 7: 09/30/17 04:52 09/30/17 04:52 Consult Discharge Plan - Plan Referrals: Ivania Pate JESS [Physician Soldering Technician] - 10/09/17 11:30 am (move upon your request) Ely Dowling CNP [Primary Care Provider] -
[2017-10-02] MEDS ORDERED: Isovue-370 500 ML INFUS..BTL IV ONE (07:32)
[2017-10-02] MEDS: *HR* Morphine Sulfate SR (12 HR) 60 MG TABLET.ER PO SCH ×2 (08:36→22:50)
[2017-10-02] MEDS: Carbidopa/Levodopa 25/100 TABLET PO SCH ×3 (08:36→22:50)
[2017-10-02] MEDS: Gabapentin 400 MG CAPSULE PO SCH ×3 (08:36→22:50)
[2017-10-02] MEDS: cloNIDine HCl 0.1 MG TABLET PO SCH (08:36)
[2017-10-02] MEDS: Cefepime HCl 1,000 MG in Water for inj. (sterile) 20 ML 10 ML IVPB SCH (08:37)
[2017-10-02] MEDS: Mirtazapine 15 MG TABLET PO SCH (22:50)
[2017-10-02] MEDS: Acetaminophen 325 MG TABLET PO PRN (22:50)
[2017-10-02] MEDS: tiZANidine 4 MG TABLET PO SCH (22:50)
[2017-10-03] MEDS: Ipratropium/Albuterol Neb 3 ML IH SCH ×3 (04:20→11:12)
[2017-10-03 06:26] LABS: Basophils % 0.4 %; Eosinophils # 0.4 K/mcL (0.0-0.6); Eosinophils % 7.5 %; Hematocrit 35.8 % (35.3-44.9); Hemoglobin 11.1 g/dL (11.5-15.4); Immature Granulocytes % 0.6 % (0-4); Lymphocytes # 1.2 K/mcL (0.6-4.6); Mean Corpuscular Hemoglobin 28.1 pg (28.0-33.3); Mean Corpuscular Volume 90.6 fL (83.0-100.0); Mean Platelet Volume 11.3 fL (9.4-12.4); Monocytes # 0.7 K/mcL (0.0-1.3); Platelet Count 218 K/mcL (140-400); Red Blood Count 3.95 M/mcL (3.82-4.97); Red Cell Distribution Width 14.2 % (11.5-14.5); Segmented Neutrophils % 56.5 %
[2017-10-03] MEDS: *HR* Heparin 5,000 UNIT/ML VIAL SQ SCH (06:32)
[2017-10-03 07:10] VITALS: BP 105/56
[2017-10-03 07:25] LABS: BUN/Creatinine Ratio 13 (6-26); Blood Urea Nitrogen 7 mg/dL (8-23); Calcium 8.6 mg/dL (8.6-10.3); Carbon Dioxide 26 mEq/L (23-29); Chloride 104 mEq/L (98-107); Glucose 137 mg/dL (70-105); Magnesium 1.9 mg/dL (1.6-2.6); Osmolality,Calculated 292 (280-300); Phosphorous 3.1 mg/dL (2.7-4.5); Potassium 3.9 mEq/L (3.5-5.1); Sodium 141 mEq/L (136-145); eGFR For African Americans > 60 (> 60); eGFR For Non-African Americans > 60 (> 60)
--- NOTE | 2017-10-03 07:58 | Discharge Summary ---
Orders not resulted at time of discharge: Pending orders 10/04/17 04:00 Basic Metabolic Panel AM 0400 CBC [Complete Blood Count] [HEME] AM 0400 10/05/17 04:00 Basic Metabolic Panel AM 0400 CBC [Complete Blood Count] [HEME] AM 0400 10/06/17 04:00 Basic Metabolic Panel AM 0400 CBC [Complete Blood Count] [HEME] AM 0400 10/07/17 04:00 Basic Metabolic Panel AM 0400 CBC [Complete Blood Count] [HEME] AM 0400 10/08/17 04:00 Basic Metabolic Panel AM 0400 CBC [Complete Blood Count] [HEME] AM 0400 Date of Encounter: 10/03/17 Time of Encounter: 07:30 - Discharge Diagnosis (1) Acute respiratory failure with hypoxia Priority: Primary Status: Acute Assessment and Plan: Pt came in with fever,confusion and acute hypoxic respiratory failure. Has been treated for HCAP with vanc and cefepime. Reportedly uses oxygen at night time in the shelter. Currently on 3L nasal cannula. V/q showed very low probability for PE. Continue supportive management. Pt's oxygen levels were a baseline at time of discharge. She completed a course of antibiotics with vanc and cefepime and was discharged to her shelter in a stable condition (2) Sepsis Priority: Secondary Status: Acute Assessment and Plan: -Blood cultures negative. Urine cultures positive for enteroccocus. Has completed a course of vancomycin and cefepime (3) Pneumonia Priority: Secondary Status: Ruled-out Assessment and Plan: - Clinically suspected pneumonia, continue cefepime and Vanco IV. Completed course of cefepime Qualifiers: Pneumonia type: due to unspecified organism Laterality: unspecified laterality Lung location: unspecified part of lung Qualified Code(s): J18.9 - Pneumonia, unspecified organism (4) Depression Priority: Secondary Status: Chronic Assessment and Plan: - Continue home medication. Qualifiers: Depression Type: unspecified Qualified Code(s): F32.9 - Major depressive disorder, single episode, unspecified (5) COPD (chronic obstructive pulmonary disease) Priority: Secondary Status: Chronic Assessment and Plan: - Respiratory status stable. Continue current treatment. Qualifiers: COPD type: chronic bronchitis Chronic bronchitis type: simple Qualified Code(s): J41.0 - Simple chronic bronchitis (6) Hip fracture Priority: Secondary Status: Chronic Assessment and Plan: - Repeat x-ray showed normal healing. Patient has an appointment with orthopedics next week. Stable Qualifiers: Encounter type: subsequent encounter Fracture type: closed Laterality: left Fracture healing: with routine healing Qualified Code(s): S72.002D - Fracture of unspecified part of neck of left femur, subsequent encounter for closed fracture with routine healing (7) HTN (hypertension) Priority: Secondary Status: Chronic Assessment and Plan: - BP stable, continue current treatment. Qualifiers: Hypertension type: essential hypertension Qualified Code(s): I10 - Essential (primary) hypertension (8) CAD (coronary artery disease) Priority: Secondary Status: Chronic Assessment and Plan: - No chest pain, continue Plavix. Qualifiers: Coronary Disease-Associated Artery/Lesion type: [place] artery [place] vs. transplanted heart: [place] heart Associated angina: without angina Qualified Code(s): I25.10 - Atherosclerotic heart disease of [place] coronary artery without angina pectoris (9) Parkinson disease Priority: Secondary Status: Chronic Assessment and Plan: - Continue home medication. (10) UTI (urinary tract infection) Priority: Secondary Status: Acute Assessment and Plan: - Urine culture positive for enterococus sensitive to vancomycin. Completed course of Iv vancomycin Qualifiers: Urinary tract infection type: acute cystitis Hematuria presence: without hematuria Qualified Code(s): N30.00 - Acute cystitis without hematuria Hospital course: Ms. Pickett is a 77 year old female - Time Spent with Patient Total time spent providing and/or coordinating discharge services: - Discharge Medications Prescriptions: Carbidopa/Levodopa 25/100 [Sinemet 25/100] 1 each PO TID #60 tablet Home Medications: Clopidogrel [Plavix] 75 mg PO DAILY 05/09/15 [History] Albuterol Sulfate [Albuterol Inhaler] 2 puff IH Q4H PRN 03/15/16 [History] Montelukast [Singulair] 10 mg PO DAILY 03/15/16 [History] Quetiapine Fumarate [Seroquel] 100 mg PO HS 03/15/16 [History] Tizanidine HCl [Zanaflex] 4 mg PO HS 03/15/16 [History] Albuterol Neb [Proventil Neb] 1.5 ml IH Q4H PRN 09/18/17 [History] Carvedilol [Coreg] 6.25 mg PO DAILY 09/18/17 [History] Ergocalciferol (VITAMIN D2) [Vitamin D2] 50,000 unit PO WE 09/18/17 [History] Gabapentin [Neurontin] 400 mg PO TID 09/18/17 [History] Mirtazapine [Remeron] 30 mg PO HS 09/18/17 [History] Nitroglycerin [Nitrostat] 0.4 mg SL Q5M PRN 09/18/17 [History] Umeclidinium Brm/Vilanterol Tr [Anoro Ellipta 62.5-25 Mcg INH] 1 puff IH DAILY 09/18/17 [History] cloNIDine HCl [Clonidine HCl] 0.3 mg PO DAILY 09/18/17 [History] hydroCHLOROthiazide [Hydrochlorothiazide] 25 mg PO DAILY 09/18/17 [History] Morphine Sulfate [Arymo ER] 60 mg PO BID 5 Days #10 tab.po.er 09/21/17 [Rx] Carbidopa/Levodopa 25/100 [Sinemet 25/100] 1 each PO TID 09/29/17 [History] Carbidopa/Levodopa 25/100 [Sinemet 25/100] 1 each PO TID #60 tablet 10/03/17 [Rx ] Allergies/Adverse Reactions: 3 Allergy/AdvReac Type Severity Reaction Status Date / Time Penicillins Allergy Itching Verified 09/18/17 21:25 Tetracycline Allergy Hallucinati Verified 09/18/17 21:25 ng diazepam [From Valium] AdvReac Unconscious Verified 09/18/17 21:25 hydrocodone [From Vicodin] AdvReac See Verified 09/18/17 21:25 Comments ibuprofen AdvReac Nausea Verified 09/18/17 21:25 simvastatin AdvReac See Verified 09/18/17 21:25 Comments ivp dye Allergy Swelling Uncoded 09/18/17 21:25 of Lip/Tongue/Throat Date of admission: 09/29/17 00:31 Primary care physician: Ely Dowling CNP Consults: 09/29/17 04:28 Consult to Pig Furnace Operator [CONS] Routine Reason for SW Consult: ECF placement 10/01/17 08:48 Consult to Physical Therapy [CONS] Routine Comment: Evaluate, develop and implement POC Reason for Consult: ECF Does patient have active BEDREST order?: No Is patient medically & hemodynamically stable?: Yes 10/01/17 08:49 OT [Consult to Occupational Therapy] [CONS] Routine Comment: Evaluate, develop and implement POC Reason for Consult: Discharge planning Does patient have active BEDREST order?: No Is patient medically & hemodynamically stable?: Yes 10/01/17 08:51 Consult to Pulmonology [CONS] Routine Consulting Provider: [facility] Reason for Consult: copd/pneumonia clinically not better Call Completed: No - Constitutional Vitals: Temp Pulse Resp BP Pulse Ox 98.0 F 69 18 105/56 93 10/03/17 07:06 10/03/17 07:06 10/03/17 07:06 10/03/17 07:06 10/03/17 07:06 General appearance: Present: mild distress, A&O X 3, obese, answers questions appropriately - Head Head exam: Present: atraumatic, normocephalic - Eye Eye exam: Present: PERRL, conjuntiva pink, sclera anicteric Pupils: Present: PERRL - Neck Neck exam general surgery: Present: supple, trachea midline. Absent: lymphadenopathy - Respiratory Respiratory exam: Present: CTAB. Absent: accessory muscle use, rales, rhonchi, wheezes - Cardiovascular Cardiovascular exam: Present: RRR, +S1, +S2. Absent: diastolic murmur, gallop, rubs, systolic murmur - GI/Abdominal GI/Abdominal exam: Present: normal bowel sounds, soft, no peritoneal signs. Absent: distended, tenderness - Extremities Exam Extremities exam: Present: warm, radial pulses palpable and symmetrical. Absent : calf tenderness, cyanotic, pedal edema - Neurological Exam Neurological exam: Present: CN II-XII intact, oriented X3, no focal deficits. Absent: pronater drift, facial droop, speech deficit - Skin Skin exam: Present: dry, intact - Patient Status Disposition: Transfer SNF Condition: Good Overall status at discharge: patient is back to baseline - Discharge Instructions Follow Up With: Ivania Pate PAC [Physician Drum Drier Operator] - 10/09/17 11:30 am (move upon your request) Ely Dowling CNP [Primary Care Provider] -
[2017-10-03] MEDS: Gabapentin 400 MG CAPSULE PO SCH (08:12)
[2017-10-03] MEDS: Carbidopa/Levodopa 25/100 TABLET PO SCH (08:12)
[2017-10-03] MEDS: *HR* Morphine Sulfate SR (12 HR) 60 MG TABLET.ER PO SCH (08:13)
[2017-10-03] MEDS: cloNIDine HCl 0.1 MG TABLET PO SCH (08:13)
--- NOTE | 2017-10-03 12:53 | Physician Discharge Referral ---
ExtendedCare Referral Info Institutional Level of Care: Skilled - Diagnosis (1) Acute respiratory failure with hypoxia Priority: Primary Status: Acute (2) Sepsis Priority: Secondary Status: Acute (3) Pneumonia Priority: Secondary Status: Ruled-out (4) Depression Priority: Secondary Status: Chronic (5) COPD (chronic obstructive pulmonary disease) Priority: Secondary Status: Chronic (6) Hip fracture Priority: Secondary Status: Chronic (7) HTN (hypertension) Priority: Secondary Status: Chronic (8) CAD (coronary artery disease) Priority: Secondary Status: Chronic (9) Parkinson disease Priority: Secondary Status: Chronic (10) UTI (urinary tract infection) Priority: Secondary Status: Acute - Transfer Medications Prescriptions: Carbidopa/Levodopa 25/100 [Sinemet 25/100] 1 each PO TID #60 tablet Home Medications: Clopidogrel [Plavix] 75 mg PO DAILY 05/09/15 [History] Albuterol Sulfate [Albuterol Inhaler] 2 puff IH Q4H PRN 03/15/16 [History] Montelukast [Singulair] 10 mg PO DAILY 03/15/16 [History] Quetiapine Fumarate [Seroquel] 100 mg PO HS 03/15/16 [History] Tizanidine HCl [Zanaflex] 4 mg PO HS 03/15/16 [History] Albuterol Neb [Proventil Neb] 1.5 ml IH Q4H PRN 09/18/17 [History] Carvedilol [Coreg] 6.25 mg PO DAILY 09/18/17 [History] Ergocalciferol (VITAMIN D2) [Vitamin D2] 50,000 unit PO WE 09/18/17 [History] Gabapentin [Neurontin] 400 mg PO TID 09/18/17 [History] Mirtazapine [Remeron] 30 mg PO HS 09/18/17 [History] Nitroglycerin [Nitrostat] 0.4 mg SL Q5M PRN 09/18/17 [History] Umeclidinium Brm/Vilanterol Tr [Anoro Ellipta 62.5-25 Mcg INH] 1 puff IH DAILY 09/18/17 [History] cloNIDine HCl [Clonidine HCl] 0.3 mg PO DAILY 09/18/17 [History] hydroCHLOROthiazide [Hydrochlorothiazide] 25 mg PO DAILY 09/18/17 [History] Morphine Sulfate [Arymo ER] 60 mg PO BID 5 Days #10 tab.po.er 09/21/17 [Rx] Carbidopa/Levodopa 25/100 [Sinemet 25/100] 1 each PO TID 09/29/17 [History] Carbidopa/Levodopa 25/100 [Sinemet 25/100] 1 each PO TID #60 tablet 10/03/17 [Rx ] Allergies/Adverse Reactions: 3 Allergy/AdvReac Type Severity Reaction Status Date / Time Penicillins Allergy Itching Verified 09/18/17 21:25 Tetracycline Allergy Hallucinati Verified 09/18/17 21:25 ng diazepam [From Valium] AdvReac Unconscious Verified 09/18/17 21:25 hydrocodone [From Vicodin] AdvReac See Verified 09/18/17 21:25 Comments ibuprofen AdvReac Nausea Verified 09/18/17 21:25 simvastatin AdvReac See Verified 09/18/17 21:25 Comments ivp dye Allergy Swelling Uncoded 09/18/17 21:25 of Lip/Tongue/Throat - Respiratory Orders Smoking Cessation: Smoking cessation has been advised. For more information, call the [place] Tobacco Quit Line at 0-708-EMZI-NOW. - Rehabiliation Orders Rehab Potential: Good Rehab Orders: Evaluation for Physical Therapy - Diet Orders Regular CERTIFICATION: I certify that the transfer of the above named patient to an Extended Care Facility is necessary for the continuing treatment of the diagnosis listed. The above information is true and accurate reflection of patient's current condition. Confidential - Redisclosure prohibited without a patient's written consent.
[2017-10-03] MEDS ORDERED: Aminoglycoside Consult 1 EACH MC ONE (14:16)
== END 2017-10-03 14:17 | DRG 871 ==
LOC: 2ANU 21:13 → EMEROO 21:13 → 2ANU 23:45
PROVIDERS: ADMIT Internal Medicine; ATTEND Internal Medicine

== ENCOUNTER 2018-02-19 11:47 | Inpatient (IN) ==
[2018-02-19] MEDS ORDERED: Isovue-370 500 ML INFUS..BTL IV ONE (12:42)
[2018-02-19] MEDS ORDERED: *HR* OxyCODONE/APAP 5/325 TABLET PO ONE (12:43)
[2018-02-19 13:31] LABS: Basophils % 0.6 %; Eosinophils # 0.1 K/mcL (0.0-0.6); Hematocrit 47.5 % (35.3-44.9); Hemoglobin 15.6 g/dL (11.5-15.4); Immature Granulocytes % 0.3 % (0-4); Lymphocytes # 1.7 K/mcL (0.6-4.6); Lymphocytes % 23.8 %; Mean Corpuscular HGB Conc 32.8 g/dL (31.6-35.5); Mean Corpuscular Hemoglobin 29.1 pg (28.0-33.3); Mean Corpuscular Volume 88.6 fL (83.0-100.0); Mean Platelet Volume 10.7 fL (9.4-12.4); Monocytes # 0.9 K/mcL (0.0-1.3); Neutrophils # 4.3 K/mcL (1.6-8.9); Platelet Count 269 K/mcL (140-400); Red Blood Count 5.36 M/mcL (3.82-4.97); Red Cell Distribution Width 13.9 % (11.5-14.5); Segmented Neutrophils % 60.3 %
[2018-02-19 13:53] LABS: Alanine Aminotransferase 7 Units/L (7-52); Albumin 4.3 g/dL (3.5-5.7); Albumin/Globulin Ratio 1.5 (1.1-2.2); Alkaline Phosphatase 79 Units/L (34-104); Aspartate Amino Transferase 16 Units/L (13-39); BUN/Creatinine Ratio 19 (6-26); Bilirubin,Total 0.4 mg/dL (0.3-1.0); Blood Urea Nitrogen 15 mg/dL (8-23); C-Reactive Protein 21 mg/L (Less than 10); Calcium 9.6 mg/dL (8.6-10.3); Carbon Dioxide 32 mEq/L (23-29); Chloride 100 mEq/L (98-107); Globulin 2.8 g/dL (2.4-3.5); Glucose 143 mg/dL (70-105); Osmolality,Calculated 291 (280-300); Potassium 3.4 mEq/L (3.5-5.1); Sodium 139 mEq/L (136-145); Total Protein 7.1 g/dL (6.4-8.9); eGFR For Non-African Americans > 60 (> 60)
[2018-02-19] MEDS ORDERED: *HR* HYDROmorphone (PF) 1 MG/ML SYRINGE IVP ONE (14:58)
[2018-02-19] MEDS ORDERED: Naloxone 0.4 MG/ML INJ IVP PRN (15:16)
--- NOTE | 2018-02-19 16:36 | Internal Med History&Physical ---
Date of Encounter: 02/19/18 Time of Encounter: 16:30 Internal Medicine - H&P: HPI Chief complaint: Right hip pain, redness and swelling History of present illness: Ms. Pickett is a 77 year old female with pmh of COPD, hypertension , left hip fracture s/p fall and being almost bedridden since she fractured her hip in September presenting with complaints of right hip swelling, redness and pain of about 1 month duration. Patient notes symtpoms started with progressive pain iin her right hip and she has been having progressive redness of the the right hip that has been going on for about a month as well. She has had a low grade fever and subjective chills in this time period. She also notes theres a particular area of severe pain along the right hip. Denies any other acute symptoms. In the ER, she was started on vancomycin and ciprofloxacin and surgery has been consulted Past Med Surg Social Fam HX - Past Medical History Medical history: COPD, coronary artery disease, CVA, DVT, GERD, hyperlipidemia, hypertension, TIA Additional medical history: osteoarthritis Psychiatric history: anxiety, depression - Past Surgical History Surgical History: appendectomy, cholecystectomy, hysterectomy Additional surgical history: knee and back surgery left hip sx - Social History Smoking Status: Never smoker Smokeless Tobacco Status: No Alcohol use: none Drug use: none - Family History Mother Living Status: Hx Family Cardiac Disorders: Yes Hx Family Cancer: Yes (colon) Father Living Status: Hx Family Cardiac Disorders: Yes Daughter Hx Family Cardiac Disorders: Yes (HTN) Internal Medicine - H&P: Meds Clopidogrel [Plavix] 75 mg PO DAILY 05/09/15 [History] Albuterol Sulfate [Albuterol Inhaler] 2 puff IH Q4H PRN 03/15/16 [History] Montelukast [Singulair] 10 mg PO DAILY 03/15/16 [History] Quetiapine Fumarate [Seroquel] 100 mg PO HS 03/15/16 [History] Tizanidine HCl [Zanaflex] 4 mg PO HS 03/15/16 [History] Albuterol Neb [Proventil Neb] 1.5 ml IH Q4H PRN 09/18/17 [History] Carvedilol [Coreg] 6.25 mg PO DAILY 09/18/17 [History] Ergocalciferol (VITAMIN D2) [Vitamin D2] 50,000 unit PO WE 09/18/17 [History] Gabapentin [Neurontin] 400 mg PO TID 09/18/17 [History] Mirtazapine [Remeron] 30 mg PO HS 09/18/17 [History] Nitroglycerin [Nitrostat] 0.4 mg SL Q5M PRN 09/18/17 [History] Umeclidinium Brm/Vilanterol Tr [Anoro Ellipta 62.5-25 Mcg INH] 1 puff IH DAILY 09/18/17 [History] cloNIDine HCl [Clonidine HCl] 0.3 mg PO DAILY 09/18/17 [History] hydroCHLOROthiazide [Hydrochlorothiazide] 25 mg PO DAILY 09/18/17 [History] Morphine Sulfate [Arymo ER] 60 mg PO BID 5 Days #10 tab.po.er 09/21/17 [Rx] Carbidopa/Levodopa 25/100 [Sinemet 25/100] 1 each PO TID 09/29/17 [History] Carbidopa/Levodopa 25/100 [Sinemet 25/100] 1 each PO TID #60 tablet 10/03/17 [Rx ] 3 Allergy/AdvReac Type Severity Reaction Status Date / Time Penicillins Allergy Itching Verified 09/18/17 21:25 Tetracycline Allergy Hallucinati Verified 09/18/17 21:25 ng diazepam [From Valium] AdvReac Unconscious Verified 09/18/17 21:25 hydrocodone [From Vicodin] AdvReac See Verified 09/18/17 21:25 Comments ibuprofen AdvReac Nausea Verified 09/18/17 21:25 simvastatin AdvReac See Verified 09/18/17 21:25 Comments ivp dye Allergy Swelling Uncoded 09/18/17 21:25 of Lip/Tongue/Throat All Systems PM: A 10-system review of systems was performed and is negative for pertinent findings except as documented above in the HPI. - Constitutional Constitutional: fever(s), no chills, no night sweats - EENT Eyes: no change in vision, no discharge, no pain, no photophobia Ears: no ear discharge, no ear pain, no tinnitus Nose, mouth and throat: no dysphagia, no nasal discharge, no neck pain, no sore throat - Cardiovascular Cardiovascular ROS IM: no chest pain, no diaphoresis, no dyspnea, no lightheadedness, no palpitations, no syncope - Respiratory Respiratory: no cough, no dyspnea, no wheezing, no excessive phlegm production - Gastrointestinal Gastrointestinal: no abdominal pain, no diarrhea, no hematemesis, no hematochezia, no melena, no nausea, no vomiting - Genitourinary Genitourinary: no change in urinary stream, no dysuria, no flank pain, no hematuria - Musculoskeletal Musculoskeletal ROS IM: no numbness, no tingling Additional comments: right hip area of redness and pain - Integumentary Integumentary IM: no rash, no unusual bruising - Neurological Neurological ROS: no confusion, no convulsions, no focal weakness, no numbness, no tingling, no tremor(s) - Hematologic/Lymphatic Hematologic/Lymphatic: no easy bruising - Constitutional Vitals: Temp Pulse Resp BP Pulse Ox 98.2 F 91 20 145/113 95 02/19/18 12:05 02/19/18 12:05 02/19/18 15:39 02/19/18 15:39 02/19/18 12:05 Exam: NAD - Head Head exam: Present: atraumatic, normocephalic - Eye Eye exam: Present: PERRL, conjuntiva pink, sclera anicteric Pupils: Present: PERRL - Neck Neck exam general surgery: Present: supple, trachea midline. Absent: lymphadenopathy - Respiratory Respiratory exam: Present: CTAB. Absent: accessory muscle use, rales, rhonchi, wheezes - Cardiovascular Cardiovascular exam: Present: RRR, +S1, +S2. Absent: diastolic murmur, gallop, rubs, systolic murmur - GI/Abdominal GI/Abdominal exam: Present: normal bowel sounds, soft, no peritoneal signs. Absent: distended, tenderness - Extremities Exam Extremities exam: Present: warm, radial pulses palpable and symmetrical. Absent : calf tenderness, cyanotic, pedal edema Additional comments: Pain and redness of right hip plus area of induration - Neurological Exam Neurological exam: Present: CN II-XII intact, oriented X3, no focal deficits. Absent: pronater drift, facial droop, speech deficit - Skin Skin exam: Present: dry, intact Internal Med - H&P Results - Labs CBC & Chem 7: 02/19/18 13:11 09/26/18 13:11 - Assessment and plan (1) Cellulitis of hip, right Current Visit: Yes Status: Acute Assessment and plan: Pt has been mostly bedridden s/p left hip fracture surgery. Has area of redness and induration Start on antibiotics with vanc and ciprofloxacin. Surgery consulted and appreciate recs (2) COPD (chronic obstructive pulmonary disease) Current Visit: No Status: Chronic Assessment and plan: No acute exacerbation. On nebs PRN Qualifiers: COPD type: chronic bronchitis Chronic bronchitis type: simple Qualified Code(s): J41.0 - Simple chronic bronchitis (3) Obesity (BMI 30.0-34.9) Current Visit: No Status: Chronic Assessment and plan: Diet and exercise (4) Parkinson disease Current Visit: No Status: Chronic Assessment and plan: Continue carbidopa/levodopa (5) HTN (hypertension) Current Visit: No Status: Chronic Assessment and plan: Continue HCTZ Qualifiers: Hypertension type: essential hypertension Qualified Code(s): I10 - Essential (primary) hypertension (6) Hypokalemia Current Visit: Yes Status: Acute Assessment and plan: Replaced (7) DVT prophylaxis Current Visit: No Status: Acute Assessment and plan: Heparin sc - Time Spent With Patient Total time spent is greater than 50% in coordination of care (as documented) at patient's floor/unit and/or counseling patient:
[2018-02-19] MEDS ORDERED: Acetaminophen 325 MG TABLET PO PRN (16:41)
[2018-02-19] MEDS ORDERED: traMADol 50 MG TABLET PO PRN (16:41)
[2018-02-19] MEDS: Mirtazapine 15 MG TABLET PO SCH (20:25)
[2018-02-19] MEDS: *HR* Morphine Sulfate SR (12 HR) 60 MG TABLET.ER PO SCH (20:25)
[2018-02-19] MEDS: Carbidopa/Levodopa 25/100 TABLET PO SCH (20:25)
[2018-02-19] MEDS: Gabapentin 400 MG CAPSULE PO SCH (20:25)
[2018-02-19] MEDS: tiZANidine 4 MG TABLET PO SCH (20:26)
--- NOTE | 2018-02-19 20:39 | Emergency Department Note ---
Disposition Clinical Impression: Abscess Disposition: Admitted As Inpatient Condition: Undetermined General Adult HPI - General Chief complaint: UC Lower Extremity Injury Stated complaint: Right hip swelling Time Seen by Provider: 02/19/18 12:10 Nursing Notes Reviewed: Yes Vital Signs Reviewed: Yes - History of Present Illness HPI Narrative: 77-year-old female presents with concern for right hip pain. She admits to an indurated area on the right hip with worsening pain and swelling or approximately one week. She admits that she had a hip replacement performed of the left hip and now has had ongoing pain in the right hip which she treats to living on the right-hand side while recovering from surgery. She has no fever, chills. She is on chronic pain medication and follows with pain management. General: No acute distress HEENT: Pupils equal and reactive to light, extraoccular muscle movement is normal, TMS are clear bilaterally. Heart: RRR, No murmor rub or gallop Lungs: lungs clear, no wheezing, rales or ronchi. ABD: SNT, no focal areas or tenderness, no guarding or rebound tenderness. Extremities: No cyanosis, clubbing or edema Neuro: CN 2-12 in tact, no focal deficit. strength 5/5. There is an indurated, possibly cellulitic area palmar size. There is no fluctuance. A 12 point review of systems is completed and pertinent positives are discussed in the history of present illness Medical decision making Findings consistent with possible early abscess formation. We will proceed with nonemergent surgery consultation, IV antibiotics, there is an allergy to penicillin. We will start Cipro and vancomycin. I did perform a noncontrast CT scan due to anaphylactic contrast reaction which shows evidence of cellulitis however no evidence of abscess formation. The patient will be admitted to the hospital for subsequent antimicrobial therapy. Pain Scale: 10 - Related Data Home Medications Medication Instructions Recorded Confirmed Clopidogrel [Plavix] 75 mg PO DAILY 05/09/15 09/29/17 Albuterol Sulfate [Albuterol 2 puff IH Q4H PRN 03/15/16 09/29/17 Inhaler] Montelukast [Singulair] 10 mg PO DAILY 03/15/16 09/29/17 Quetiapine Fumarate [Seroquel] 100 mg PO HS 03/15/16 09/29/17 Tizanidine HCl [Zanaflex] 4 mg PO HS 03/15/16 09/29/17 Albuterol Neb [Proventil Neb] 1.5 ml IH Q4H PRN 09/18/17 09/29/17 Carvedilol [Coreg] 6.25 mg PO DAILY 09/18/17 09/29/17 Ergocalciferol (VITAMIN D2) 50,000 unit PO WE 09/18/17 09/29/17 [Vitamin D2] Gabapentin [Neurontin] 400 mg PO TID 09/18/17 09/29/17 Mirtazapine [Remeron] 30 mg PO HS 09/18/17 09/29/17 Nitroglycerin [Nitrostat] 0.4 mg SL Q5M PRN 09/18/17 09/29/17 Umeclidinium Brm/Vilanterol Tr 1 puff IH DAILY 09/18/17 09/29/17 [Anoro Ellipta 62.5-25 Mcg INH] cloNIDine HCl [Clonidine HCl] 0.3 mg PO DAILY 09/18/17 09/29/17 hydroCHLOROthiazide 25 mg PO DAILY 09/18/17 09/29/17 [Hydrochlorothiazide] Carbidopa/Levodopa 25/100 [Sinemet 1 each PO TID 09/29/17 09/29/17 25/100] Previous Rx's Medication Instructions Recorded Morphine Sulfate [Arymo ER] 60 mg PO BID 5 Days #10 tab.po.er 09/21/17 Carbidopa/Levodopa 25/100 [Sinemet 1 each PO TID #60 tablet 10/03/17 25/100] Allergies Allergy/AdvReac Type Severity Reaction Status Date / Time Penicillins Allergy Itching Verified 09/18/17 21:25 Tetracycline Allergy Hallucinati Verified 09/18/17 21:25 ng diazepam [From Valium] AdvReac Unconscious Verified 09/18/17 21:25 hydrocodone [From Vicodin] AdvReac See Verified 09/18/17 21:25 Comments ibuprofen AdvReac Nausea Verified 09/18/17 21:25 simvastatin AdvReac See Verified 09/18/17 21:25 Comments ivp dye Allergy Swelling Uncoded 09/18/17 21:25 of Lip/Tongue/Throat Past Medical History - Past Medical History Medical history: Reports: COPD, coronary artery disease, CVA, DVT, GERD, hyperlipidemia, hypertension, TIA Surgical history: Reports: appendectomy, cholecystectomy, hysterectomy Psychiatric history: Reports: anxiety, depression HHA history: Reports: no HHA history - Social History Smoking Status: Never smoker Smokeless Tobacco Status: No Alcohol use: Reports: none Drug use: Reports: none Physical Exam - General General appearance: alert, in no apparent distress Course Vital Signs Temperature 98.2 F 02/19/18 11:58 Pulse Rate 91 02/19/18 11:58 Respiratory Rate 18 02/19/18 11:58 Blood Pressure 175/92 02/19/18 11:58 O2 Sat by Pulse Oximetry 95 02/19/18 11:58 Temperature 98.9 F 02/19/18 20:12 Pulse Rate 86 02/19/18 20:12 Respiratory Rate 17 02/19/18 20:12 Blood Pressure 154/79 02/19/18 20:12 O2 Sat by Pulse Oximetry 92 02/19/18 20:12 Oxygen Delivery Oxygen Delivery Room Air Medical Decision Making - Lab Data Result diagrams: 02/19/18 13:11 02/19/18 13:11 Lab Results 02/19/18 02/19/18 02/19/18 Range/Units 13:11 13:11 13:11 WBC 7.1 (4.3-11.1) K/mcL RBC 5.36 H (3.82-4.97) M/mcL Hgb 15.6 H (11.5-15.4) g/dL Hct 47.5 H (35.3-44.9) % MCV 88.6 (83.0-100.0) fL MCH 29.1 (28.0-33.3) pg MCHC 32.8 (31.6-35.5) g/dL RDW 13.9 (11.5-14.5) % Plt Count 269 (140-400) K/mcL MPV 10.7 (9.4-12.4) fL Immature Gran % 0.3 (0-4) % Seg Neutrophils % 60.3 % Lymphocytes % 23.8 % Monocytes % 13.0 % Eosinophils % 2.0 % Basophils % 0.6 % Neutrophils # 4.3 (1.6-8.9) K/mcL Lymphocytes # 1.7 (0.6-4.6) K/mcL Monocytes # 0.9 (0.0-1.3) K/mcL Eosinophils # 0.1 (0.0-0.6) K/mcL Basophils # 0.0 (0.0-0.2) K/mcL ESR 62 H (0-15) mm/hr Sodium 139 (136-145) mEq/L Potassium 3.4 L (3.5-5.1) mEq/L Chloride 100 (98-107) mEq/L Carbon Dioxide 32 H (23-29) mEq/L BUN 15 (8-23) mg/dL Creatinine 0.81 (0.60-1.20) mg/dL Est GFR ( Amer) > 60 (> 60) Est GFR (Non-Af Amer) > 60 (> 60) BUN/Creatinine Ratio 19 (6-26) Glucose 143 H (70-105) mg/dL Calculated Osmolality 291 (280-300) Lactic Acid (0.5-2.2) mmol/L Calcium 9.6 (8.6-10.3) mg/dL Total Bilirubin 0.4 (0.3-1.0) mg/dL AST 16 (13-39) Units/L ALT 7 (7-52) Units/L Alkaline Phosphatase 79 (34-104) Units/L C-Reactive Protein 21 H (Less than 10) mg/L Serum Total Protein 7.1 (6.4-8.9) g/dL Albumin 4.3 (3.5-5.7) g/dL Globulin 2.8 (2.4-3.5) g/dL Albumin/Globulin Ratio 1.5 (1.1-2.2) 02/19/18 Range/Units 13:11 WBC (4.3-11.1) K/mcL RBC (3.82-4.97) M/mcL Hgb (11.5-15.4) g/dL Hct (35.3-44.9) % MCV (83.0-100.0) fL MCH (28.0-33.3) pg MCHC (31.6-35.5) g/dL RDW (11.5-14.5) % Plt Count (140-400) K/mcL MPV (9.4-12.4) fL Immature Gran % (0-4) % Seg Neutrophils % % Lymphocytes % % Monocytes % % Eosinophils % % Basophils % % Neutrophils # (1.6-8.9) K/mcL Lymphocytes # (0.6-4.6) K/mcL Monocytes # (0.0-1.3) K/mcL Eosinophils # (0.0-0.6) K/mcL Basophils # (0.0-0.2) K/mcL ESR (0-15) mm/hr Sodium (136-145) mEq/L Potassium (3.5-5.1) mEq/L Chloride (98-107) mEq/L Carbon Dioxide (23-29) mEq/L BUN (8-23) mg/dL Creatinine (0.60-1.20) mg/dL Est GFR ( Amer) (> 60) Est GFR (Non-Af Amer) (> 60) BUN/Creatinine Ratio (6-26) Glucose (70-105) mg/dL Calculated Osmolality (280-300) Lactic Acid 1.9 (0.5-2.2) mmol/L Calcium (8.6-10.3) mg/dL Total Bilirubin (0.3-1.0) mg/dL AST (13-39) Units/L ALT (7-52) Units/L Alkaline Phosphatase (34-104) Units/L C-Reactive Protein (Less than 10) mg/L Serum Total Protein (6.4-8.9) g/dL Albumin (3.5-5.7) g/dL Globulin (2.4-3.5) g/dL Albumin/Globulin Ratio (1.1-2.2)
[2018-02-19] MEDS ORDERED: OXYCODONE Oral CONC 10 MG/0.5 ML ORAL.SYG SL ONE (23:15)
[2018-02-20 01:59] LABS: Basophils % 0.3 %; Eosinophils # 0.2 K/mcL (0.0-0.6); Eosinophils % 3.1 %; Hematocrit 41.9 % (35.3-44.9); Immature Granulocytes % 0.4 % (0-4); Lymphocytes # 1.7 K/mcL (0.6-4.6); Lymphocytes % 23.5 %; Mean Corpuscular Hemoglobin 28.5 pg (28.0-33.3); Mean Platelet Volume 10.5 fL (9.4-12.4); Monocytes # 1.1 K/mcL (0.0-1.3); Monocytes % 14.6 %; Neutrophils # 4.2 K/mcL (1.6-8.9); Platelet Count 225 K/mcL (140-400); Red Blood Count 4.71 M/mcL (3.82-4.97); Red Cell Distribution Width 13.7 % (11.5-14.5); Segmented Neutrophils % 58.1 %
[2018-02-20 02:01] LABS: Hemoglobin 13.4 g/dL (11.5-15.4)
[2018-02-20 02:27] LABS: BUN/Creatinine Ratio 23 (6-26); Blood Urea Nitrogen 16 mg/dL (8-23); Calcium 8.7 mg/dL (8.6-10.3); Carbon Dioxide 28 mEq/L (23-29); Chloride 99 mEq/L (98-107); Glucose 111 mg/dL (70-105); Magnesium 2.2 mg/dL (1.6-2.6); Osmolality,Calculated 280 (280-300); Phosphorous 3.5 mg/dL (2.7-4.5); Potassium 3.4 mEq/L (3.5-5.1); Sodium 134 mEq/L (136-145); eGFR For Non-African Americans > 60 (> 60)
[2018-02-20] MEDS: Tiotropium 18 MCG inhalation IH SCH (07:53)
--- NOTE | 2018-02-20 09:53 | General Surgery Consult Note ---
Date of Encounter: 02/20/18 Time of Encounter: 08:15 Assessment and Plan (1) Cellulitis of hip, right Current Visit: Yes Status: Acute CT scan of the abdomen and pelvis without contrast notes infiltration of the subcutaneous fat right gluteal region suggesting cellulitis, there is no abscess formation noted. There is no subcutaneous gas noted. There is no focal fluid collection noted. No acute surgical indication at this time. Recommend warm moist compresses to the area Q1-2 hours. Continue IV antibiotics per primary team. Draw margins around the area of cellulitis. Surgery will reevaluate in the next 24 to 48 hours pending clinical course. (2) Obesity (BMI 30.0-34.9) Current Visit: No Status: Chronic History of Present Illness Consult date: 02/20/18 (Dr. Tenzin Ruiz) Reason for consult: other Requesting physician: Ethan Montero History of present illness: Shana is a 77-year-old female who presented on 02/18/2018 with complaints of right back hip pain for approximately 3 to 4 days. She has had ongoing pain since a recent left hip replacement and now have ongoing right hip pain. She denies fever, chills, abdominal pain, difficulty urinating, lower extremity weakness. She reports redness at the area and denies drainage. Shana's past medical, surgical, social, history's have been reviewed per the EMR. Surgery has been asked to evaluate this patient for recommendations regarding a possible abscess in the right posterior hip. Past Med Surg Social Fam HX - Past Medical History Source: patient, old records reviewed Medical history: COPD, coronary artery disease, CVA, DVT, GERD, hyperlipidemia, hypertension, TIA Additional medical history: osteoarthritis Psychiatric history: anxiety, depression - Past Surgical History Surgical History: appendectomy, cholecystectomy, hysterectomy Additional surgical history: knee and back surgery left hip sx - Social History Smoking Status: Never smoker Smokeless Tobacco Status: No Alcohol use: none Drug use: none Occupational status: unemployed - Family History Mother Living Status: Hx Family Cardiac Disorders: Yes Hx Family Cancer: Yes (colon) Father Living Status: Hx Family Cardiac Disorders: Yes Daughter Hx Family Cardiac Disorders: Yes (HTN) Medications and Allergies Clopidogrel [Plavix] 75 mg PO DAILY 05/09/15 [History] Albuterol Sulfate [Albuterol Inhaler] 2 puff IH Q4H PRN 03/15/16 [History] Montelukast [Singulair] 10 mg PO DAILY 03/15/16 [History] Quetiapine Fumarate [Seroquel] 100 mg PO HS 03/15/16 [History] Tizanidine HCl [Zanaflex] 4 mg PO HS 03/15/16 [History] Carvedilol [Coreg] 6.25 mg PO DAILY 09/18/17 [History] Ergocalciferol (VITAMIN D2) [Vitamin D2] 50,000 unit PO WE 09/18/17 [History] Gabapentin [Neurontin] 400 mg PO TID 09/18/17 [History] Mirtazapine [Remeron] 30 mg PO HS 09/18/17 [History] Nitroglycerin [Nitrostat] 0.4 mg SL Q5M PRN 09/18/17 [History] Umeclidinium Brm/Vilanterol Tr [Anoro Ellipta 62.5-25 Mcg INH] 1 puff IH DAILY 09/18/17 [History] cloNIDine HCl [Clonidine HCl] 0.3 mg PO DAILY 09/18/17 [History] hydroCHLOROthiazide [Hydrochlorothiazide] 25 mg PO DAILY 09/18/17 [History] Carbidopa/Levodopa 25/100 [Sinemet 25/100] 1 tab PO TID 09/29/17 [History] Morphine Sulfate SR (12 HR) [MS Contin] 1 tab PO Q12HR 02/20/18 [History] Oxycodone HCl/Acetaminophen [Percocet 10-325 mg Tablet] 1 tab PO Q6H PRN [History] 3 Allergy/AdvReac Type Severity Reaction Status Date / Time Penicillins Allergy Itching Verified 09/18/17 21:25 Tetracycline Allergy Hallucinati Verified 09/18/17 21:25 ng diazepam [From Valium] AdvReac Unconscious Verified 09/18/17 21:25 hydrocodone [From Vicodin] AdvReac See Verified 09/18/17 21:25 Comments ibuprofen AdvReac Nausea Verified 09/18/17 21:25 simvastatin AdvReac See Verified 09/18/17 21:25 Comments ivp dye Allergy Swelling Uncoded 09/18/17 21:25 of Lip/Tongue/Throat Review of Systems All systems PM: reviewed and no additional remarkable complaints except as stated All systems PM: The remainder of the systems were reviewed and are negative General Surgery Exam Initial Vital Signs Temp Pulse Resp BP Pulse Ox 98.2 F 91 18 175/92 95 02/19/18 11:58 02/19/18 11:58 02/19/18 11:58 02/19/18 11:58 02/19/18 11:58 VITAL SIGNS: Reviewed. See [facility] GENERAL: In no apparent distress. HEENT: Normocephalic, atraumatic, oropharynx is pink and moist, there is no neck adenopathy or JVD noted. CHEST/RESPIRATORY: The thorax is free from signs of trauma. Lung sounds: clear to auscultation, normal respiratory effort CARDIAC: Regular rate and rhythm. Normal S1 and S2, without murmurs, gallops, or rubs. VASCULAR: No Edema. 2+ peripheral pulses. ABDOMEN: soft, nontender, active bowel sounds MUSCULOSKELETAL: Extremities without clubbing, cyanosis or edema. NEUROLOGIC EXAM: Alert and oriented x 3. Speech normal. Follows commands. PSYCHIATRIC: Mood normal. SKIN: No rash. The right posterior gluteal cleft, superior gluteus is with an area of induration aprox 4 cm in diameter. There is no fluctuance or drainage noted. Exam Initial Vital Signs Temp Pulse Resp BP Pulse Ox 98.2 F 91 18 175/92 95 02/19/18 11:58 02/19/18 11:58 02/19/18 11:58 02/19/18 11:58 02/19/18 11:58 Results - Labs 02/20/18 01:32 02/20/18 01:32 Abnormal lab results ESR 62 mm/hr (0-15) H 02/19/18 13:11 Sodium 134 mEq/L (136-145) L 02/20/18 01:32 Potassium 3.4 mEq/L (3.5-5.1) L 02/20/18 01:32 Glucose 111 mg/dL (70-105) H 02/20/18 01:32 C-Reactive Protein 21 mg/L (Less than 10) H 02/19/18 13:11 Diabetes panel 02/20/18 Range/Units 01:32 Sodium 134 L (136-145) mEq/L Potassium 3.4 L (3.5-5.1) mEq/L Chloride 99 (98-107) mEq/L Carbon Dioxide 28 (23-29) mEq/L BUN 16 (8-23) mg/dL Creatinine 0.71 (0.60-1.20) mg/dL Glucose 111 H (70-105) mg/dL Calcium 8.7 (8.6-10.3) mg/dL Calcium panel 02/20/18 Range/Units 01:32 Calcium 8.7 (8.6-10.3) mg/dL Phosphorus 3.5 (2.7-4.5) mg/dL Pituitary panel 02/20/18 Range/Units 01:32 Sodium 134 L (136-145) mEq/L Potassium 3.4 L (3.5-5.1) mEq/L Chloride 99 (98-107) mEq/L Carbon Dioxide 28 (23-29) mEq/L BUN 16 (8-23) mg/dL Creatinine 0.71 (0.60-1.20) mg/dL Glucose 111 H (70-105) mg/dL Calcium 8.7 (8.6-10.3) mg/dL Adrenal panel 02/20/18 Range/Units 01:32 Sodium 134 L (136-145) mEq/L Potassium 3.4 L (3.5-5.1) mEq/L Chloride 99 (98-107) mEq/L Carbon Dioxide 28 (23-29) mEq/L BUN 16 (8-23) mg/dL Creatinine 0.71 (0.60-1.20) mg/dL Glucose 111 H (70-105) mg/dL Calcium 8.7 (8.6-10.3) mg/dL All other labs normal. - Imaging CT scan - abdomen: report reviewed, image reviewed CT scan - pelvis: report reviewed, image reviewed Consult Discharge Plan - Plan Referrals: Ely Dowling, TONO [Primary Care Provider] -
--- NOTE | 2018-02-20 09:55 | Internal Med Progress Note ---
Hospitalist Progress Note - Encounter Date of Encounter: 02/20/18 Time of Encounter: 09:50 - Exam Vitals: Temp Pulse Resp BP Pulse Ox 98.4 F 68 17 132/76 90 02/20/18 07:19 02/20/18 07:19 02/20/18 07:19 02/20/18 07:19 02/20/18 07:19 Exam: Gen - Awake, alert, oriented x 3, no acute distress HEENT - NCAT, PERRLA, EOMI, hearing grossly intact, oropharynx benign CV - RRR, normal S1 and S2, no M/R/G, no BLE edema Resp - Normal WOB, CTAB, no W/R/R GI - Soft, NT/ND, no masses, normal bowel sounds, Skin - Warm, dry, right hip area of redness and induration - Assessment and Plan (1) Cellulitis of hip, right Current Visit: Yes Status: Acute Assessment and Plan: Pt has been mostly bedridden s/p left hip fracture surgery. Has area of redness and induration Start on antibiotics with vanc and cefepime. Surgery consulted and recommend no acute surgical intervention. Warm compresses as needed q2hr prn (2) COPD (chronic obstructive pulmonary disease) Current Visit: No Status: Chronic Assessment and Plan: No acute exacerbation. On nebs PRN (3) Obesity (BMI 30.0-34.9) Current Visit: No Status: Chronic Assessment and Plan: Diet and exercise (4) Parkinson disease Current Visit: No Status: Chronic Assessment and Plan: Continue carbidopa/levodopa (5) HTN (hypertension) Current Visit: No Status: Chronic Assessment and Plan: Continue HCTZ (6) Hypokalemia Current Visit: Yes Status: Acute Assessment and Plan: Replaced (7) DVT prophylaxis Current Visit: No Status: Acute Assessment and Plan: Heparin sc - Time Spent with Patient Total time spent is greater than 50% in coordination of care (as documented) at patient's floor/unit and/or counseling patient: Internal Medicine: Result - Labs CBC & Chem 7: 02/20/18 01:32 02/20/18 01:32 Labs: Short CBC 02/20/18 Range/Units 01:32 WBC 7.2 (4.3-11.1) K/mcL Hgb 13.4 D (11.5-15.4) g/dL Hct 41.9 (35.3-44.9) % Plt Count 225 (140-400) K/mcL Neutrophils # 4.2 (1.6-8.9) K/mcL BMP 02/20/18 01:32 Sodium 134 L Potassium 3.4 L Chloride 99 Carbon Dioxide 28 BUN 16 Creatinine 0.71 Glucose 111 H Calcium 8.7 Consult Discharge Plan - Plan Referrals: Ely Dowling, TONO [Primary Care Provider] - (2) COPD (chronic obstructive pulmonary disease) Qualifiers: COPD type: chronic bronchitis Chronic bronchitis type: simple Qualified Code (s): J41.0 - Simple chronic bronchitis (5) HTN (hypertension) Qualifiers: Hypertension type: essential hypertension Qualified Code(s): I10 - Essential (primary) hypertension
[2018-02-20] MEDS: *HR* Morphine Sulfate SR (12 HR) 60 MG TABLET.ER PO SCH ×2 (10:04→20:33)
[2018-02-20] MEDS: cloNIDine HCl 0.1 MG TABLET PO SCH (10:04)
[2018-02-20] MEDS: Gabapentin 400 MG CAPSULE PO SCH ×3 (10:04→20:33)
[2018-02-20] MEDS: Carbidopa/Levodopa 25/100 TABLET PO SCH ×3 (10:04→20:33)
[2018-02-20] MEDS: hydroCHLOROthiazide 25 MG TABLET PO SCH (10:04)
[2018-02-20] MEDS ORDERED: traMADol 50 MG TABLET PO PRN (10:32)
[2018-02-20] MEDS: Cefepime HCl 2,000 MG in Water for inj. (sterile) 20 ML 20 ML IVP SCH ×2 (10:57→23:04)
[2018-02-20] MEDS: tiZANidine 4 MG TABLET PO SCH (20:33)
[2018-02-20] MEDS: Mirtazapine 15 MG TABLET PO SCH (20:33)
[2018-02-21] MEDS: Tiotropium 18 MCG inhalation IH SCH (07:53)
[2018-02-21] MEDS: *HR* Morphine Sulfate SR (12 HR) 60 MG TABLET.ER PO SCH ×2 (09:39→20:31)
--- NOTE | 2018-02-21 09:46 | Internal Med Progress Note ---
Hospitalist Progress Note - Encounter Date of Encounter: 02/21/18 Time of Encounter: 09:45 - Exam Vitals: Temp Pulse Resp BP Pulse Ox 98.1 F 81 17 139/78 91 02/21/18 07:10 02/21/18 07:10 02/21/18 07:10 02/21/18 07:10 02/21/18 07:10 Exam: Gen - Awake, alert, oriented x 3, no acute distress HEENT - NCAT, PERRLA, EOMI, hearing grossly intact, oropharynx benign CV - RRR, normal S1 and S2, no M/R/G, no BLE edema Resp - Normal WOB, CTAB, no W/R/R GI - Soft, NT/ND, no masses, normal bowel sounds, Skin - Warm, dry, right hip area of redness and induration - Assessment and Plan (1) Cellulitis of hip, right Current Visit: Yes Status: Acute Assessment and Plan: Pt has been mostly bedridden s/p left hip fracture surgery. Has area of redness and induration Start on antibiotics with vanc and cefepime. Surgery consulted and recommend no acute surgical intervention. Warm compresses as needed q2hr prn (2) COPD (chronic obstructive pulmonary disease) Current Visit: No Status: Chronic Assessment and Plan: No acute exacerbation. On nebs PRN (3) Obesity (BMI 30.0-34.9) Current Visit: No Status: Chronic Assessment and Plan: Diet and exercise (4) Parkinson disease Current Visit: No Status: Chronic Assessment and Plan: Continue carbidopa/levodopa (5) HTN (hypertension) Current Visit: No Status: Chronic Assessment and Plan: Continue HCTZ (6) Hypokalemia Current Visit: Yes Status: Acute Assessment and Plan: Replaced (7) DVT prophylaxis Current Visit: No Status: Acute Assessment and Plan: Heparin sc - Time Spent with Patient Total time spent is greater than 50% in coordination of care (as documented) at patient's floor/unit and/or counseling patient: Internal Medicine: Result - Labs CBC & Chem 7: 02/20/18 01:32 02/20/18 01:32 Consult Discharge Plan - Plan Referrals: Ely Dowling, TONO [Primary Care Provider] - (2) COPD (chronic obstructive pulmonary disease) Qualifiers: COPD type: chronic bronchitis Chronic bronchitis type: simple Qualified Code (s): J41.0 - Simple chronic bronchitis (5) HTN (hypertension) Qualifiers: Hypertension type: essential hypertension Qualified Code(s): I10 - Essential (primary) hypertension
[2018-02-21 10:12] LABS: Basophils % 0.5 %; Eosinophils # 0.3 K/mcL (0.0-0.6); Eosinophils % 5.5 %; Hematocrit 42.7 % (35.3-44.9); Hemoglobin 13.7 g/dL (11.5-15.4); Immature Granulocytes % 0.2 % (0-4); Lymphocytes # 1.3 K/mcL (0.6-4.6); Lymphocytes % 23.6 %; Mean Corpuscular HGB Conc 32.1 g/dL (31.6-35.5); Mean Corpuscular Hemoglobin 28.7 pg (28.0-33.3); Mean Corpuscular Volume 89.3 fL (83.0-100.0); Mean Platelet Volume 10.3 fL (9.4-12.4); Monocytes # 0.6 K/mcL (0.0-1.3); Monocytes % 10.3 %; Neutrophils # 3.4 K/mcL (1.6-8.9); Platelet Count 208 K/mcL (140-400); Red Blood Count 4.78 M/mcL (3.82-4.97); Red Cell Distribution Width 13.9 % (11.5-14.5); Segmented Neutrophils % 59.9 %
[2018-02-21] MEDS: Gabapentin 400 MG CAPSULE PO SCH ×3 (10:19→20:31)
[2018-02-21] MEDS: Carbidopa/Levodopa 25/100 TABLET PO SCH ×3 (10:19→20:31)
[2018-02-21] MEDS: hydroCHLOROthiazide 25 MG TABLET PO SCH (10:20)
[2018-02-21] MEDS: cloNIDine HCl 0.1 MG TABLET PO SCH (10:20)
[2018-02-21] MEDS: Potassium Chloride Elixir 20 MEQ/15 ML UDC PO SCH ×2 (10:20→14:25)
[2018-02-21 10:35] LABS: BUN/Creatinine Ratio 22 (6-26); Blood Urea Nitrogen 16 mg/dL (8-23); Calcium 9.1 mg/dL (8.6-10.3); Carbon Dioxide 30 mEq/L (23-29); Chloride 100 mEq/L (98-107); Glucose 158 mg/dL (70-105); Osmolality,Calculated 292 (280-300); Potassium 3.2 mEq/L (3.5-5.1); Sodium 139 mEq/L (136-145); eGFR For Non-African Americans > 60 (> 60)
[2018-02-21] MEDS: Cefepime HCl 2,000 MG in Water for inj. (sterile) 20 ML 20 ML IVP SCH ×2 (12:10→23:34)
[2018-02-21] MEDS ORDERED: *HR* OxyCODONE/APAP 5/325 TABLET PO PRN (14:01)
[2018-02-21] MEDS ORDERED: Lidocaine 1% 20 ML MDV INFILT ONE (14:54)
--- NOTE | 2018-02-21 14:56 | General Surgery Progress Note ---
Date of Encounter: 02/21/18 Time of Encounter: 14:45 - Assessment and Plan (1) Cellulitis of hip, right Current Visit: Yes Status: Acute I&D of Right hip/lower back today Daily wound care X 7 days Social service consult for home health Supportive care No cultures indicated F/U surgery office 1 week Surgery will sign off, please call with any further questions/concerns. Thank you for allowing us to participate in the care of this patient. Subjective Patient reports: no new complaints, still having pain (unchanged), voiding w/o difficulty, afebrile Objective Vital Signs - Last 8 Hours Temp Pulse Resp BP Pulse Ox 02/21/18 11:27 18 94 02/21/18 11:15 98.4 F 85 16 161/90 95 02/21/18 07:53 18 161/0 91 02/21/18 07:10 98.1 F 81 17 139/78 91 Intake and Output 02/20/18 02/21/18 02/21/18 23:59 07:59 15:59 Intake Total 820 / 820 750 / 750 Output Total 600 / 600 Balance 220 / 220 750 / 750 Intake: IV Fluids 20 / 20 270 / 270 Maxipime 2,000 MG In Water for 20 / 20 20 / 20 inj. (sterile) 20 ML @ 300 mls/ hr IVP Q12H MOHAN Rx#:[id number] Vancocin 1,250 MG In 0.9 % 250 / 250 Sodium Chloride 250 ML @ 166.67 mls/hr IVPB Q24H MOHAN Rx#: [id number] Oral 800 / 800 480 / 480 Output: Urine 600 / 600 Other: Meal Breakfast Percent of Meal Consumed 90% # Bowel Movements 0 Weight 92 kg Patient Weight 02/21/18 23:59 Weight 92 kg - General physical appearance well nourished, no distress, chronically ill - Eyes normal ocular movement - ENT normal mucosa, atraumatic, normocephalic - Neck Neck exam: trachea midline - Respiratory normal respiratory effort, clear to auscultation - Cardiovascular Cardiovascular exam: Present: RRR - Abdomen Abdomen: Present: bowel sounds present, soft, non tender - Integumentary other (Right Hip/Lower back- erythema and induration noted with small area of central fluctuance appreciated. Tender to examination.) - Neurologic CN 2-12 grossly intact - Psychiatric oriented to time, oriented to person, oriented to place, speech is normal, memory intact - Labs 02/21/18 09:59 02/21/18 09:59 Diabetes panel 02/21/18 Range/Units 09:59 Sodium 139 (136-145) mEq/L Potassium 3.2 L (3.5-5.1) mEq/L Chloride 100 (98-107) mEq/L Carbon Dioxide 30 H (23-29) mEq/L BUN 16 (8-23) mg/dL Creatinine 0.74 (0.60-1.20) mg/dL Glucose 158 H (70-105) mg/dL Calcium 9.1 (8.6-10.3) mg/dL Calcium panel 02/21/18 Range/Units 09:59 Calcium 9.1 (8.6-10.3) mg/dL Pituitary panel 02/21/18 Range/Units 09:59 Sodium 139 (136-145) mEq/L Potassium 3.2 L (3.5-5.1) mEq/L Chloride 100 (98-107) mEq/L Carbon Dioxide 30 H (23-29) mEq/L BUN 16 (8-23) mg/dL Creatinine 0.74 (0.60-1.20) mg/dL Glucose 158 H (70-105) mg/dL Calcium 9.1 (8.6-10.3) mg/dL Adrenal panel 02/21/18 Range/Units 09:59 Sodium 139 (136-145) mEq/L Potassium 3.2 L (3.5-5.1) mEq/L Chloride 100 (98-107) mEq/L Carbon Dioxide 30 H (23-29) mEq/L BUN 16 (8-23) mg/dL Creatinine 0.74 (0.60-1.20) mg/dL Glucose 158 H (70-105) mg/dL Calcium 9.1 (8.6-10.3) mg/dL Consult Discharge Plan - Plan Additional Instructions: Wound care- cleanse the wound with soap and water in the shower daily, pack with a quarter inch plain gauze, cover with dry dressing, tape to secure daily for the next 7 days Referrals: Ely Dowling CNP [Primary Care Provider] - Tiffanie Zelaya CNP [Advanced Practice Nurse] - 02/25/18 2:30 pm (hospital follow-up) - Attending Attestation For this encounter, I have reviewed the [employer] REPRESENTATIVE or PA documentation, treatment plan, and medical decision making; and I have had face to face time with this patient.
[2018-02-21] MEDS: Albuterol 2.5 MG/3 ML NEBULIZER IH PRN (16:15)
--- NOTE | 2018-02-21 16:43 | Infectious Disease Consult ---
Date of Encounter: 02/21/18 Time of Encounter: 16:42 Assessment and Plan (1) Cellulitis of right buttock Status: Acute Assessment and plan: CT 02/19/2018: Infiltration of the subcutaneous fat right clitoral region questioning cellulitis without abscess formation seen Status post I&D at bedside on 02/21/2018 by surgery with serosanguineous material coming out no purulence; not sure if a culture was sent Patient had a hip fracture on the other side and does not appear to be infected I do not believe there is any hardware involvement or deep seated infection Patient currently on vancomycin and cefepime Consider switching the patient to combination of Bactrim and ciprofloxacin Duration of treatment 7-10 days (2) Allergy to antibiotic Status: Acute Assessment and plan: With penicillin patient apparently had angioedema With tetracycline she had altered mentation (3) Hypokalemia Status: Acute (4) COPD (chronic obstructive pulmonary disease) Status: Chronic Qualifiers: COPD type: chronic bronchitis Chronic bronchitis type: simple Qualified Code(s): J41.0 - Simple chronic bronchitis (5) HTN (hypertension) Status: Chronic Qualifiers: Hypertension type: essential hypertension Qualified Code(s): I10 - Essential (primary) hypertension (6) Hip fracture Status: Chronic Qualifiers: Encounter type: subsequent encounter Fracture type: closed Laterality: left Fracture healing: with routine healing Qualified Code(s): S72.002D - Fracture of unspecified part of neck of left femur, subsequent encounter for closed fracture with routine healing (7) History of TIA (transient ischemic attack) Status: Chronic Infectious Disease HPI - Data of Consult Patient: new to practice Consult date: 02/21/18 Requesting Physician: Jaxon Manrique DO Primary Care Provider: Ely Dowling CNP - Consult Narrative Reason for consult: hip pain/cellulitis History of present illness: Ms. Pickett is a 77 year old female Patient is a 77-year-old woman who presented to [facility] on 02/19/2018 with right hip pain and redness and swelling, we are consult at for nonhealing cellulitis. Patient with past medical history mentioned below including COPD, hypertension, history of left hip fracture status post fall and being bedridden in September of this year has been having pain and redness in her right hip for almost a month. Symptoms apparently are getting progressively worse and patient decided to come to the ED for evaluation. Patient denied any fevers or chills at home. Since admission, patient has been afebrile. She had a few episodes of tachycardia but her heart rate now is within normal limit. Presenting labs revealed WBC of 7.1 ESR of 62 BUN and creatinine of 15 and 0.81 respectively and a normal lactic acid. Blood cultures were obtained 2 on 02/19/2018 and are so far no growth. CT abdomen and pelvis on February 19 reveals infiltration of the subcutaneous fat right gluteal region questioning cellulitis without abscess formation seen. Patient was started on empiric vancomycin and ciprofloxacin. Clinically she is not improved apparently underestimated evaluate the patient and make further recommendations. On further questioning patient tells me that it was the left hip that was broken and was fixed here with IM nail in September of last year The wound is technically on the right buttock and it looks like surgery just had I&D at bedside There is just blood draining there is no actual purulence or foul smell CC: Jaxon Manrique, DO Past Med Surg Social Fam HX - Past Medical History Medical history: COPD, coronary artery disease, CVA, DVT, GERD, hyperlipidemia, hypertension, TIA Additional medical history: osteoarthritis Psychiatric history: anxiety, depression - Past Surgical History Surgical History: appendectomy, cholecystectomy, hysterectomy Additional surgical history: knee and back surgery left hip sx - Social History Smoking Status: Never smoker Smokeless Tobacco Status: No Alcohol use: none Drug use: none - Family History Mother Living Status: Hx Family Cardiac Disorders: Yes Hx Family Cancer: Yes (colon) Father Living Status: Hx Family Cardiac Disorders: Yes Daughter Hx Family Cardiac Disorders: Yes (HTN) Infectious Disease-CN:Meds Clopidogrel [Plavix] 75 mg PO DAILY 05/09/15 [History] Albuterol Sulfate [Albuterol Inhaler] 2 puff IH Q4H PRN 03/15/16 [History] Montelukast [Singulair] 10 mg PO DAILY 03/15/16 [History] Quetiapine Fumarate [Seroquel] 100 mg PO HS 03/15/16 [History] Tizanidine HCl [Zanaflex] 4 mg PO HS 03/15/16 [History] Carvedilol [Coreg] 6.25 mg PO DAILY 09/18/17 [History] Ergocalciferol (VITAMIN D2) [Vitamin D2] 50,000 unit PO WE 09/18/17 [History] Gabapentin [Neurontin] 400 mg PO TID 09/18/17 [History] Mirtazapine [Remeron] 30 mg PO HS 09/18/17 [History] Nitroglycerin [Nitrostat] 0.4 mg SL Q5M PRN 09/18/17 [History] Umeclidinium Brm/Vilanterol Tr [Anoro Ellipta 62.5-25 Mcg INH] 1 puff IH DAILY 09/18/17 [History] cloNIDine HCl [Clonidine HCl] 0.3 mg PO DAILY 09/18/17 [History] hydroCHLOROthiazide [Hydrochlorothiazide] 25 mg PO DAILY 09/18/17 [History] Carbidopa/Levodopa [Sinemet ] 1 tab PO TID 09/29/17 [History] Morphine Sulfate SR (12 HR) [MS Contin] 1 tab PO Q12HR 02/20/18 [History] Oxycodone HCl/Acetaminophen [Percocet 10-325 mg Tablet] 1 tab PO Q6H PRN [History] 3 Allergy/AdvReac Type Severity Reaction Status Date / Time Penicillins Allergy Itching Verified 09/18/17 21:25 Tetracycline Allergy Hallucinati Verified 09/18/17 21:25 ng diazepam [From Valium] AdvReac Unconscious Verified 09/18/17 21:25 hydrocodone [From Vicodin] AdvReac See Verified 09/18/17 21:25 Comments ibuprofen AdvReac Nausea Verified 09/18/17 21:25 simvastatin AdvReac See Verified 09/18/17 21:25 Comments ivp dye Allergy Swelling Uncoded 09/18/17 21:25 of Lip/Tongue/Throat Review of systems: 10 point review of systems done, negative other for what mentioned in history of present illness Exam - Constitutional Vitals: Temp Pulse Resp BP Pulse Ox 98.7 F 76 17 116/75 91 02/21/18 16:02 02/21/18 16:02 02/21/18 16:02 02/21/18 16:02 02/21/18 16:02 General appearance: cooperative, no acute distress, no febrile - Head Head exam: Present: atraumatic, normal inspection, normocephalic - Eye Eye exam: Present: EOMI, PERRL, sclera anicteric - Respiratory Respiratory exam: Present: CTAB. Absent: wheezes - Cardiovascular Cardiovascular exam: Present: RRR, +S1, +S2 - GI/Abdominal GI/Abdominal exam: Present: distended, soft. Absent: tenderness - Extremities Exam Additional comments: There is a wound on the right buttock about 10 cm in length and 4-5 cm in width with no fluctuance that has just been I&D - Neurological Exam Neurological exam: Present: alert, oriented X3 - Psychiatric Psychiatric exam: Present: normal affect, normal mood - Skin Skin exam: Present: normal color. Absent: rash Infectious Disease CN: Results - Labs CBC & Chem 7: 02/21/18 09:59 02/21/18 09:59 Consult Discharge Plan - Plan Additional Instructions: Wound care- cleanse the wound with soap and water in the shower daily, pack with a quarter inch plain gauze, cover with dry dressing, tape to secure daily for the next 7 days Referrals: Tiffanie Zelaya CNP [Advanced Practice Nurse] - 02/25/18 2:30 pm (hospital follow-up) lEy Dowling CNP [Primary Care Provider] -
--- NOTE | 2018-02-21 16:44 | General Surgery Procedure Note ---
Date of procedure: 02/21/18 Pre-op diagnosis: Right hip/lower back cellulitis/abscess Post-op diagnosis: other (Right hip/lower back cellulitis) Procedure: After informed consent was obtained and timeout completed, the patient's right hip/lower back was prepped and draped. The area was localized with 5 ML's of 1% lidocaine. After achieving appropriate localization, a cruciate incision through skin and subcutaneous tissue was made over the most fluctuant area using a size 11 blade. There was immediate return of serousang. drainage. The cavity was further opened and decompressed using hemostats. Cultures were not obtained and there was no purulent drainage noted. The cavity was flushed using 20 MLs of saline and then packed with 1/4 inch plain gauze and covered with a dry dressing. Complications: None Anesthesia: local Surgeon: Danette Ruiz Estimated blood loss (cc): 3 Pathology: none sent Condition: stable Disposition: no change
[2018-02-21] MEDS ORDERED: Aminoglycoside Consult 1 EACH MC ONE (17:29)
[2018-02-21] MEDS: *HR* Heparin 5,000 UNIT/ML VIAL SQ SCH (18:43)
[2018-02-21] MEDS: Mirtazapine 15 MG TABLET PO SCH (20:31)
[2018-02-21] MEDS: tiZANidine 4 MG TABLET PO SCH (20:31)
[2018-02-22] MEDS: *HR* Heparin 5,000 UNIT/ML VIAL SQ SCH (05:33)
[2018-02-22] MEDS: Tiotropium 18 MCG inhalation IH SCH (07:51)
[2018-02-22] MEDS: Albuterol 2.5 MG/3 ML NEBULIZER IH PRN (07:54)
[2018-02-22] MEDS: Carbidopa/Levodopa 25/100 TABLET PO SCH ×2 (09:34→15:07)
[2018-02-22] MEDS: cloNIDine HCl 0.1 MG TABLET PO SCH (09:35)
[2018-02-22] MEDS: hydroCHLOROthiazide 25 MG TABLET PO SCH (09:35)
[2018-02-22] MEDS: Gabapentin 400 MG CAPSULE PO SCH ×2 (09:35→15:07)
[2018-02-22] MEDS: *HR* Morphine Sulfate SR (12 HR) 60 MG TABLET.ER PO SCH (09:39)
--- NOTE | 2018-02-22 10:22 | Internal Med Progress Note ---
Hospitalist Progress Note - Encounter Date of Encounter: 02/22/18 Time of Encounter: 10:20 - Exam Vitals: Temp Pulse Resp BP Pulse Ox 98.5 F 78 18 130/76 92 02/22/18 06:55 02/22/18 06:55 02/22/18 07:51 02/22/18 06:55 02/22/18 07:51 Exam: Gen - Awake, alert, oriented x 3, no acute distress HEENT - NCAT, PERRLA, EOMI, hearing grossly intact, oropharynx benign CV - RRR, normal S1 and S2, no M/R/G, no BLE edema Resp - Normal WOB, CTAB, no W/R/R GI - Soft, NT/ND, no masses, normal bowel sounds, Skin - Warm, dry, right hip area of redness and induration - Assessment and Plan (1) Cellulitis of hip, right Current Visit: Yes Status: Acute Assessment and Plan: Pt has been mostly bedridden s/p left hip fracture surgery. Has area of redness and induration Surgery consulted and did an incision and drainage showing serous fluid and no cultures were sent ID recommend switching antibiotics to cipro and bactrim. Plan on total of 10-14 day course. Plan for discharge once home health is setup for daily wound dressing. Will f/u with social work (2) COPD (chronic obstructive pulmonary disease) Current Visit: No Status: Chronic Assessment and Plan: No acute exacerbation. On nebs PRN (3) Obesity (BMI 30.0-34.9) Current Visit: No Status: Chronic Assessment and Plan: Diet and exercise (4) Parkinson disease Current Visit: No Status: Chronic Assessment and Plan: Continue carbidopa/levodopa (5) HTN (hypertension) Current Visit: No Status: Chronic Assessment and Plan: Continue HCTZ (6) Hypokalemia Current Visit: Yes Status: Acute Assessment and Plan: Replaced (7) DVT prophylaxis Current Visit: No Status: Acute Assessment and Plan: Heparin sc - Time Spent with Patient Total time spent is greater than 50% in coordination of care (as documented) at patient's floor/unit and/or counseling patient: Internal Medicine: Result - Labs CBC & Chem 7: 02/21/18 09:59 02/21/18 09:59 Consult Discharge Plan - Plan Additional Instructions: Wound care- cleanse the wound with soap and water in the shower daily, pack with a quarter inch plain gauze, cover with dry dressing, tape to secure daily for the next 7 days Referrals: Tiffanie Zelaya CNP [Advanced Practice Nurse] - 02/25/18 2:30 pm (hospital follow-up) Ely Dowling CNP [Primary Care Provider] - (2) COPD (chronic obstructive pulmonary disease) Qualifiers: COPD type: chronic bronchitis Chronic bronchitis type: simple Qualified Code (s): J41.0 - Simple chronic bronchitis (5) HTN (hypertension) Qualifiers: Hypertension type: essential hypertension Qualified Code(s): I10 - Essential (primary) hypertension
[2018-02-22] MEDS ORDERED: Sulfamethoxazole/Trimeth DS 1 EACH TABLET PO SCH (10:30)
[2018-02-22 15:27] VITALS: BP 146/82
--- NOTE | 2018-02-22 17:02 | Discharge Summary ---
Date of Encounter: 02/22/18 Time of Encounter: 17:00 - Discharge Diagnosis (1) Cellulitis of hip, right Priority: Primary Status: Acute Assessment and Plan: 77 year old female with pmh of COPD, hypertension , left hip fracture s/p fall and being almost bedridden since she fractured her hip in September presenting with complaints of right hip swelling, redness and pain of about 1 month duration. Patient notes symtpoms started with progressive pain in her right hip and she has been having progressive redness of the the right hip that has been going on for about a month as well. She has had a low grade fever and subjective chills in this time period. She also notes theres a particular area of severe pain along the right hip. She was assessed with right hip cellulitis with an area of induration and started on broad spectrum antibiotics with vanc and cefepime. Her cellulitis was slow to respond to antibiotics so she was seen by the surgical team who performed an incision of drainage at the site of the induration with drainage of serosanguinous fluid. She was also seen by ID who recommended she could be switched to ciprofloxacin and bactrim to complete a 10 day course. barge worker is on board to set up home health for daily wound dressings. She was discharged in a stable condition 35 minutes was spent discharging this patient (2) COPD (chronic obstructive pulmonary disease) Priority: Secondary Status: Chronic Qualifiers: COPD type: chronic bronchitis Chronic bronchitis type: simple Qualified Code(s): J41.0 - Simple chronic bronchitis (3) Obesity (BMI 30.0-34.9) Priority: Secondary Status: Chronic (4) Parkinson disease Priority: Secondary Status: Chronic (5) HTN (hypertension) Priority: Secondary Status: Chronic Qualifiers: Hypertension type: essential hypertension Qualified Code(s): I10 - Essential (primary) hypertension (6) Hypokalemia Priority: Secondary Status: Acute (7) DVT prophylaxis Priority: Secondary Status: Acute Hospital course: Ms. Pickett is a 77 year old female - Time Spent with Patient Total time spent providing and/or coordinating discharge services: - Discharge Medications Prescriptions: Ciprofloxacin [Cipro] 500 mg PO BID 10 Days #20 tablet Sulfamethoxazole/Trimeth DS [Bactrim Ds] 1 each PO BID 10 Days #20 tablet Home Medications: Clopidogrel [Plavix] 75 mg PO DAILY 05/09/15 [History] Albuterol Sulfate [Albuterol Inhaler] 2 puff IH Q4H PRN 03/15/16 [History] Montelukast [Singulair] 10 mg PO DAILY 03/15/16 [History] Quetiapine Fumarate [Seroquel] 100 mg PO HS 03/15/16 [History] Tizanidine HCl [Zanaflex] 4 mg PO HS 03/15/16 [History] Carvedilol [Coreg] 6.25 mg PO DAILY 09/18/17 [History] Ergocalciferol (VITAMIN D2) [Vitamin D2] 50,000 unit PO WE 09/18/17 [History] Gabapentin [Neurontin] 400 mg PO TID 09/18/17 [History] Mirtazapine [Remeron] 30 mg PO HS 09/18/17 [History] Nitroglycerin [Nitrostat] 0.4 mg SL Q5M PRN 09/18/17 [History] Umeclidinium Brm/Vilanterol Tr [Anoro Ellipta 62.5-25 Mcg INH] 1 puff IH DAILY 09/18/17 [History] cloNIDine HCl [Clonidine HCl] 0.3 mg PO DAILY 09/18/17 [History] hydroCHLOROthiazide [Hydrochlorothiazide] 25 mg PO DAILY 09/18/17 [History] Carbidopa/Levodopa 25/100 [Sinemet 25/100] 1 tab PO TID 09/29/17 [History] Morphine Sulfate SR (12 HR) [MS Contin] 1 tab PO Q12HR 02/20/18 [History] Oxycodone HCl/Acetaminophen [Percocet 10-325 mg Tablet] 1 tab PO Q6H PRN [History] Ciprofloxacin [Cipro] 500 mg PO BID 10 Days #20 tablet 02/22/18 [Rx] Sulfamethoxazole/Trimeth DS [Bactrim Ds] 1 each PO BID 10 Days #20 tablet [Rx] Allergies/Adverse Reactions: 3 Allergy/AdvReac Type Severity Reaction Status Date / Time Penicillins Allergy Itching Verified 09/18/17 21:25 Tetracycline Allergy Hallucinati Verified 09/18/17 21:25 ng diazepam [From Valium] AdvReac Unconscious Verified 09/18/17 21:25 hydrocodone [From Vicodin] AdvReac See Verified 09/18/17 21:25 Comments ibuprofen AdvReac Nausea Verified 09/18/17 21:25 simvastatin AdvReac See Verified 09/18/17 21:25 Comments ivp dye Allergy Swelling Uncoded 09/18/17 21:25 of Lip/Tongue/Throat Date of admission: 02/21/18 15:15 Primary care physician: Ely Dowling CNP Consults: 02/21/18 15:16 Consult to Infectious Diseases [CONS] Routine Consulting Provider: Infectious Disease Esther Reason for Consult: Non resolving cellulitis of the right hip Call Completed: No - Constitutional Vitals: Temp Pulse Resp BP Pulse Ox 98.5 F 89 16 146/82 91 02/22/18 15:26 02/22/18 15:26 02/22/18 15:26 02/22/18 15:26 02/22/18 15:26 Exam: Gen - Awake, alert, oriented x 3, no acute distress HEENT - NCAT, PERRLA, EOMI, hearing grossly intact, oropharynx benign CV - RRR, normal S1 and S2, no M/R/G, no BLE edema Resp - Normal WOB, CTAB, no W/R/R GI - Soft, NT/ND, no masses, normal bowel sounds, Skin - Warm, dry, right hip area of redness and induration - Patient Status Disposition: Home, Self-Care Condition: Good - Discharge Instructions Instructions: Cellulitis (DC) Follow Up With: Tiffanie Zelaya CNP [Advanced Practice Nurse] - 02/25/18 2:30 pm (hospital follow-up) Ely Dowling CNP [Primary Care Provider] - Forms: ED Satisfaction Letter Additional Instructions: Wound care- cleanse the wound with soap and water in the shower daily, pack with a quarter inch plain gauze, cover with dry dressing, tape to secure daily for the next 7 days
--- NOTE | 2018-02-22 17:03 | Physician Discharge Referral ---
Home Health/Hosp Referral Info Transfer to: Home Health - Diagnosis (1) Cellulitis of hip, right Priority: Primary Status: Acute (2) COPD (chronic obstructive pulmonary disease) Priority: Primary Status: Chronic (3) Obesity (BMI 30.0-34.9) Priority: Primary Status: Chronic (4) Parkinson disease Priority: Secondary Status: Chronic (5) HTN (hypertension) Priority: Secondary Status: Chronic (6) Hypokalemia Priority: Secondary Status: Acute (7) DVT prophylaxis Priority: Secondary Status: Acute - Respiratory Orders Smoking Cessation: Smoking cessation has been advised. For more information, call the [place] Tobacco Quit Line at 7-927-FHBC-NOW. - Transfer Medications Prescriptions: Ciprofloxacin [Cipro] 500 mg PO BID 10 Days #20 tablet Sulfamethoxazole/Trimeth DS [Bactrim Ds] 1 each PO BID 10 Days #20 tablet Home Medications: Clopidogrel [Plavix] 75 mg PO DAILY 05/09/15 [History] Albuterol Sulfate [Albuterol Inhaler] 2 puff IH Q4H PRN 03/15/16 [History] Montelukast [Singulair] 10 mg PO DAILY 03/15/16 [History] Quetiapine Fumarate [Seroquel] 100 mg PO HS 03/15/16 [History] Tizanidine HCl [Zanaflex] 4 mg PO HS 03/15/16 [History] Carvedilol [Coreg] 6.25 mg PO DAILY 09/18/17 [History] Ergocalciferol (VITAMIN D2) [Vitamin D2] 50,000 unit PO WE 09/18/17 [History] Gabapentin [Neurontin] 400 mg PO TID 09/18/17 [History] Mirtazapine [Remeron] 30 mg PO HS 09/18/17 [History] Nitroglycerin [Nitrostat] 0.4 mg SL Q5M PRN 09/18/17 [History] Umeclidinium Brm/Vilanterol Tr [Anoro Ellipta 62.5-25 Mcg INH] 1 puff IH DAILY 09/18/17 [History] cloNIDine HCl [Clonidine HCl] 0.3 mg PO DAILY 09/18/17 [History] hydroCHLOROthiazide [Hydrochlorothiazide] 25 mg PO DAILY 09/18/17 [History] Carbidopa/Levodopa 25/100 [Sinemet 25/100] 1 tab PO TID 09/29/17 [History] Morphine Sulfate SR (12 HR) [MS Contin] 1 tab PO Q12HR 02/20/18 [History] Oxycodone HCl/Acetaminophen [Percocet 10-325 mg Tablet] 1 tab PO Q6H PRN [History] Ciprofloxacin [Cipro] 500 mg PO BID 10 Days #20 tablet 02/22/18 [Rx] Sulfamethoxazole/Trimeth DS [Bactrim Ds] 1 each PO BID 10 Days #20 tablet [Rx] Allergies/Adverse Reactions: 3 Allergy/AdvReac Type Severity Reaction Status Date / Time Penicillins Allergy Itching Verified 09/18/17 21:25 Tetracycline Allergy Hallucinati Verified 09/18/17 21:25 ng diazepam [From Valium] AdvReac Unconscious Verified 09/18/17 21:25 hydrocodone [From Vicodin] AdvReac See Verified 09/18/17 21:25 Comments ibuprofen AdvReac Nausea Verified 09/18/17 21:25 simvastatin AdvReac See Verified 09/18/17 21:25 Comments ivp dye Allergy Swelling Uncoded 09/18/17 21:25 of Lip/Tongue/Throat Certification: Further, I certify that my clinical findings support that this patient is homebound (i.e. absences from home require considerable and taxing effort and are for medical reasons or jehovah's witness services or infrequently or short duration when for other reasons) because: Homebound Reason: Patient requires assistance of a person or device to safely leave home Attestation: My signature below is to certify that this patient is under my care and that I, or nurse practitioner, or a physician's boiler assistant operator working with me, has a face-to -face encounter with this patient.
== END 2018-02-22 17:30 | disposition home or self-care (01) | DRG 580 ==
LOC: 3ANU 11:47 → EMEROOARM 11:47 → 3ANU 15:41
PROVIDERS: ADMIT Internal Medicine; ATTEND Internal Medicine

== ENCOUNTER 2019-08-09 14:10 | Inpatient (IN) ==
[2019-08-09] MEDS ORDERED: ceFAZolin 1,000 MG in Water for inj. (sterile) 10 ML IVP ONE (14:34)
[2019-08-09] MEDS ORDERED: predniSONE 20 MG TABLET PO ONE (14:36)
[2019-08-09] MEDS ORDERED: Ipratropium/Albuterol Neb 3 ML IH STA (14:36)
[2019-08-09 14:56] LABS: Basophils % 0.2 %; Eosinophils % 0.1 %; Hematocrit 39.6 % (35.3-44.9); Hemoglobin 12.7 g/dL (11.5-15.4); Immature Granulocytes % 0.8 % (0-4); Lymphocytes # 0.7 K/mcL (0.6-4.6); Lymphocytes % 3.4 %; Mean Corpuscular HGB Conc 32.1 g/dL (31.6-35.5); Mean Corpuscular Hemoglobin 30.4 pg (28.0-33.3); Mean Corpuscular Volume 94.7 fL (83.0-100.0); Mean Platelet Volume 10.7 fL (9.4-12.4); Monocytes # 1.6 K/mcL (0.0-1.3); Monocytes % 7.6 %; Neutrophils # 18.8 K/mcL (1.6-8.9); Platelet Count 185 K/mcL (140-400); Red Blood Count 4.18 M/mcL (3.82-4.97); Red Cell Distribution Width 13.2 % (11.5-14.5); Segmented Neutrophils % 87.9 %; White Blood Count 21.4 K/mcL (4.3-11.1)
[2019-08-09 15:18] LABS: Alanine Aminotransferase 29 Units/L (7-52); Albumin 3.7 g/dL (3.5-5.7); Albumin/Globulin Ratio 1.6 (1.1-2.2); Alkaline Phosphatase 58 Units/L (34-104); Aspartate Amino Transferase 50 Units/L (13-39); BUN/Creatinine Ratio 33 (6-26); Bilirubin,Total 0.5 mg/dL (0.3-1.0); Blood Urea Nitrogen 23 mg/dL (8-23); Calcium 8.9 mg/dL (8.6-10.3); Carbon Dioxide 34 mEq/L (23-29); Chloride 96 mEq/L (98-107); Globulin 2.3 g/dL (2.4-3.5); Glucose 149 mg/dL (70-105); Osmolality,Calculated 286 (280-300); Potassium 2.7 mEq/L (3.5-5.1); Sodium 135 mEq/L (136-145); eGFR For African Americans > 60 (> 60); eGFR For Non-African Americans > 60 (> 60)
[2019-08-09 15:19] LABS: Troponin I < 0.03 ng/mL (< 0.04)
[2019-08-09] MEDS ORDERED: Azithromycin 500 MG in 0.9 % Sodium Chloride 250 ML IVPB ONE (15:46)
[2019-08-09] MEDS ORDERED: Cefepime HCl 2,000 MG in 0.9 % Sodium Chloride Mini Bag 100 ML IVPB ONE (15:47)
[2019-08-09] MEDS ORDERED: *HR* Enoxaparin 100 MG/ML SYRINGE SQ STA (16:18)
[2019-08-09] MEDS ORDERED: Naloxone 0.4 MG/ML INJ IVP PRN (17:14)
[2019-08-09] MEDS ORDERED: Acetaminophen 325 MG TABLET PO PRN (17:14)
[2019-08-09] MEDS ORDERED: tiZANidine 4 MG TABLET PO PRN (17:17)
[2019-08-09] MEDS ORDERED: Nitroglycerin 0.4 MG TAB.SUBL SL PRN (17:17)
[2019-08-09] MEDS ORDERED: cloNIDine HCL 0.1 MG TABLET PO PRN (17:17)
[2019-08-09] MEDS ORDERED: *HR* Labetalol 20 MG/4 ML SYRINGE IVP PRN (17:59)
[2019-08-09] MEDS: *HR* OxyCODONE Immed Rel 5 MG TABLET PO PRN (18:07)
[2019-08-09] MEDS ORDERED: 0.9 % Sodium Chloride 1,000 ML IVC SCH (18:15)
[2019-08-09] MEDS: Ipratropium/Albuterol Neb 3 ML IH SCH ×2 (19:40→23:53)
[2019-08-09] MEDS: Carbidopa/Levodopa 25/100 TABLET PO SCH (20:38)
[2019-08-09] MEDS: Mirtazapine 15 MG TABLET PO SCH (20:38)
[2019-08-09] MEDS: Gabapentin 400 MG CAPSULE PO SCH (20:39)
[2019-08-09] MEDS: QUEtiapine Fumarate 100 MG TABLET PO SCH (20:39)
[2019-08-09] MEDS: Insulin LISPRO 300 UNITS/3 ML VIAL SQ SCH (20:39)
[2019-08-09] MEDS: carvediloL 6.25 MG TABLET PO SCH (20:43)
[2019-08-09] MEDS: Cefepime HCl 2,000 MG in Water for inj. (sterile) 20 ML IVP SCH (23:02)
[2019-08-09] MEDS: MetroNIDAZOLE 500 MG/100 ML 500 MG/100 ML BAG IVPB SCH (23:03)
[2019-08-10 01:06] LABS: Basophils % 0.1 %; Hematocrit 36.1 % (35.3-44.9); Hemoglobin 11.7 g/dL (11.5-15.4); Immature Granulocytes % 0.7 % (0-4); Lymphocytes # 0.9 K/mcL (0.6-4.6); Lymphocytes % 4.3 %; Mean Corpuscular HGB Conc 32.4 g/dL (31.6-35.5); Mean Corpuscular Volume 95.5 fL (83.0-100.0); Mean Platelet Volume 11.5 fL (9.4-12.4); Monocytes # 0.9 K/mcL (0.0-1.3); Monocytes % 4.1 %; Neutrophils # 18.9 K/mcL (1.6-8.9); Platelet Count 186 K/mcL (140-400); Red Blood Count 3.78 M/mcL (3.82-4.97); Red Cell Distribution Width 13.2 % (11.5-14.5); Segmented Neutrophils % 90.8 %; White Blood Count 20.8 K/mcL (4.3-11.1)
[2019-08-10 01:23] LABS: BUN/Creatinine Ratio 26 (6-26); Blood Urea Nitrogen 21 mg/dL (8-23); Calcium 8.4 mg/dL (8.6-10.3); Carbon Dioxide 33 mEq/L (23-29); Chloride 95 mEq/L (98-107); Glucose 222 mg/dL (70-105); Osmolality,Calculated 292 (280-300); Potassium 3.2 mEq/L (3.5-5.1); Sodium 136 mEq/L (136-145); eGFR For African Americans > 60 (> 60); eGFR For Non-African Americans > 60 (> 60)
[2019-08-10] MEDS: Ipratropium/Albuterol Neb 3 ML IH SCH ×5 (03:18→20:12)
[2019-08-10] MEDS: *HR* Rivaroxaban 10 MG TABLET PO SCH (05:24)
[2019-08-10 09:00] LABS: Magnesium 1.6 mg/dL (1.6-2.6)
[2019-08-10] MEDS: Gabapentin 400 MG CAPSULE PO SCH ×3 (09:54→21:07)
[2019-08-10] MEDS: Cefepime HCl 2,000 MG in Water for inj. (sterile) 20 ML IVP SCH ×2 (09:54→21:08)
[2019-08-10] MEDS: Carbidopa/Levodopa 25/100 TABLET PO SCH ×2 (09:54→21:07)
[2019-08-10] MEDS: predniSONE 20 MG TABLET PO SCH (09:55)
[2019-08-10] MEDS: MetroNIDAZOLE 500 MG/100 ML 500 MG/100 ML BAG IVPB SCH ×2 (09:55→15:38)
[2019-08-10] MEDS: carvediloL 6.25 MG TABLET PO SCH ×2 (09:55→16:47)
[2019-08-10] MEDS: Insulin LISPRO 300 UNITS/3 ML VIAL SQ SCH ×4 (10:10→21:09)
[2019-08-10] MEDS: Budesonide/Formoterol 160/4.5 1 PUFF INH IH SCH ×2 (11:46→20:12)
[2019-08-10] MEDS: lisinopriL 10 MG TABLET PO SCH (17:47)
[2019-08-10] MEDS: QUEtiapine Fumarate 100 MG TABLET PO SCH (21:07)
[2019-08-10] MEDS: Mirtazapine 15 MG TABLET PO SCH (21:07)
[2019-08-10] MEDS: *HR* OxyCODONE Immed Rel 5 MG TABLET PO PRN (21:08)
[2019-08-11] MEDS: Ipratropium/Albuterol Neb 3 ML IH SCH ×6 (00:02→20:00)
[2019-08-11] MEDS: MetroNIDAZOLE 500 MG/100 ML 500 MG/100 ML BAG IVPB SCH ×3 (00:46→15:03)
[2019-08-11 04:49] LABS: Basophils % 0.3 %; Eosinophils % 0.1 %; Hematocrit 36.4 % (35.3-44.9); Hemoglobin 11.7 g/dL (11.5-15.4); Immature Granulocytes % 0.5 % (0-4); Lymphocytes # 1.6 K/mcL (0.6-4.6); Lymphocytes % 12.1 %; Mean Corpuscular HGB Conc 32.1 g/dL (31.6-35.5); Mean Corpuscular Volume 96.3 fL (83.0-100.0); Mean Platelet Volume 11.5 fL (9.4-12.4); Monocytes # 0.9 K/mcL (0.0-1.3); Monocytes % 6.8 %; Neutrophils # 10.7 K/mcL (1.6-8.9); Platelet Count 213 K/mcL (140-400); Red Blood Count 3.78 M/mcL (3.82-4.97); Red Cell Distribution Width 13.3 % (11.5-14.5); Segmented Neutrophils % 80.2 %; White Blood Count 13.3 K/mcL (4.3-11.1)
[2019-08-11 05:09] LABS: BUN/Creatinine Ratio 28 (6-26); Blood Urea Nitrogen 19 mg/dL (8-23); Calcium 8.7 mg/dL (8.6-10.3); Carbon Dioxide 32 mEq/L (23-29); Chloride 107 mEq/L (98-107); Glucose 121 mg/dL (70-105); Magnesium 2.6 mg/dL (1.6-2.6); Osmolality,Calculated 302 (280-300); Potassium 3.9 mEq/L (3.5-5.1); Sodium 144 mEq/L (136-145); eGFR For African Americans > 60 (> 60); eGFR For Non-African Americans > 60 (> 60)
[2019-08-11] MEDS: *HR* Rivaroxaban 10 MG TABLET PO SCH (05:44)
[2019-08-11] MEDS: Budesonide/Formoterol 160/4.5 1 PUFF INH IH SCH ×2 (07:19→20:00)
[2019-08-11] MEDS: carvediloL 6.25 MG TABLET PO SCH ×2 (07:46→16:50)
[2019-08-11] MEDS: Cefepime HCl 2,000 MG in Water for inj. (sterile) 20 ML IVP SCH ×2 (07:47→20:40)
[2019-08-11] MEDS: Gabapentin 400 MG CAPSULE PO SCH ×3 (07:47→20:38)
[2019-08-11] MEDS: lisinopriL 10 MG TABLET PO SCH (07:47)
[2019-08-11] MEDS: Carbidopa/Levodopa 25/100 TABLET PO SCH ×2 (07:47→20:39)
[2019-08-11] MEDS: predniSONE 20 MG TABLET PO SCH (07:47)
[2019-08-11] MEDS: Insulin LISPRO 300 UNITS/3 ML VIAL SQ SCH ×4 (07:48→20:39)
[2019-08-11] MEDS ORDERED: Ipratropium/Albuterol Neb 3 ML IH STA (13:30)
[2019-08-11] MEDS ORDERED: methylPREDNISolone 125 MG/2 ML VIAL IVP ONE (13:30)
[2019-08-11] MEDS: *HR* OxyCODONE Immed Rel 5 MG TABLET PO PRN (13:58)
[2019-08-11] MEDS ORDERED: Ipratropium/Albuterol Neb 3 ML IH PRN (16:00)
[2019-08-11] MEDS: QUEtiapine Fumarate 100 MG TABLET PO SCH (20:39)
[2019-08-11] MEDS: Mirtazapine 15 MG TABLET PO SCH (20:39)
[2019-08-11] MEDS: *HR* OxyCODONE Immed Rel 5 MG TABLET PO SCH (20:39)
[2019-08-12] MEDS: MetroNIDAZOLE 500 MG/100 ML 500 MG/100 ML BAG IVPB SCH ×2 (00:10→10:08)
[2019-08-12] MEDS: MethylPREDNISolone 40 MG/ML VIAL IVP SCH ×2 (00:11→10:08)
[2019-08-12] MEDS: Ipratropium/Albuterol Neb 3 ML IH SCH ×4 (00:15→11:26)
[2019-08-12] MEDS: *HR* OxyCODONE Immed Rel 5 MG TABLET PO SCH ×3 (03:28→14:12)
[2019-08-12 04:33] LABS: Basophils % 0.3 %; Hematocrit 38.1 % (35.3-44.9); Hemoglobin 12.4 g/dL (11.5-15.4); Immature Granulocytes % 1.2 % (0-4); Lymphocytes % 8.2 %; Mean Corpuscular HGB Conc 32.5 g/dL (31.6-35.5); Mean Corpuscular Hemoglobin 31.2 pg (28.0-33.3); Mean Corpuscular Volume 95.7 fL (83.0-100.0); Monocytes # 0.5 K/mcL (0.0-1.3); Monocytes % 4.7 %; Neutrophils # 9.9 K/mcL (1.6-8.9); Platelet Count 202 K/mcL (140-400); Red Blood Count 3.98 M/mcL (3.82-4.97); Red Cell Distribution Width 13.4 % (11.5-14.5); Segmented Neutrophils % 85.6 %; White Blood Count 11.5 K/mcL (4.3-11.1)
[2019-08-12 04:49] LABS: Alanine Aminotransferase 23 Units/L (7-52); Albumin 3.7 g/dL (3.5-5.7); Albumin/Globulin Ratio 1.3 (1.1-2.2); Alkaline Phosphatase 55 Units/L (34-104); Aspartate Amino Transferase 16 Units/L (13-39); BUN/Creatinine Ratio 25 (6-26); Bilirubin,Total 0.3 mg/dL (0.3-1.0); Blood Urea Nitrogen 20 mg/dL (8-23); Calcium 8.7 mg/dL (8.6-10.3); Carbon Dioxide 27 mEq/L (23-29); Chloride 105 mEq/L (98-107); Globulin 2.8 g/dL (2.4-3.5); Glucose 194 mg/dL (70-105); Osmolality,Calculated 296 (280-300); Potassium 3.6 mEq/L (3.5-5.1); Sodium 139 mEq/L (136-145); Total Protein 6.5 g/dL (6.4-8.9); eGFR For African Americans > 60 (> 60); eGFR For Non-African Americans > 60 (> 60)
[2019-08-12] MEDS: *HR* Rivaroxaban 10 MG TABLET PO SCH (06:10)
[2019-08-12] MEDS: Budesonide/Formoterol 160/4.5 1 PUFF INH IH SCH (07:14)
[2019-08-12] MEDS: carvediloL 6.25 MG TABLET PO SCH (08:04)
[2019-08-12] MEDS: Carbidopa/Levodopa 25/100 TABLET PO SCH (08:04)
[2019-08-12] MEDS: Gabapentin 400 MG CAPSULE PO SCH ×2 (08:04→14:20)
[2019-08-12] MEDS: Insulin LISPRO 300 UNITS/3 ML VIAL SQ SCH ×2 (08:07→13:28)
[2019-08-12 09:25] LABS: Mycoplasma pneumoniae IgG 0.12 U/L (<=0.09)
[2019-08-12] MEDS: Cefepime HCl 2,000 MG in Water for inj. (sterile) 20 ML IVP SCH (10:08)
[2019-08-12] MEDS ORDERED: Doxycycline 100 MG CAPSULE PO SCH (10:45)
[2019-08-12] MEDS ORDERED: lisinopriL 20 MG TABLET PO SCH (10:45)
[2019-08-12] MEDS ORDERED: Cefdinir 300 MG CAPSULE PO SCH (10:45)
[2019-08-12] MEDS: metroNIDAZOLE 500 MG TABLET PO SCH ×2 (11:07→14:20)
[2019-08-12 11:27] VITALS: BP 180/94
[2019-08-12] MEDS ORDERED: Aminoglycoside Consult 1 EACH MC ONE (14:40)
== END 2019-08-12 14:41 | disposition home or self-care (01) | DRG 871 ==
LOC: 3ANU 14:10 → EMEROOARM 14:10 → OBSVTOIN 16:41 → 3ANU 17:51
PROVIDERS: ADMIT Family Medicine; ATTEND Student in an Organized Health Care Education/Training Program

== ENCOUNTER 2019-10-26 11:40 | Inpatient (IN) ==
[2019-10-26 12:30] LABS: Bilirubin,Urine Small (Negative); Blood,Urine Negative (Negative); Clarity,Urine Cloudy (Clear); Color,Urine Yellow (Yellow); Glucose,Urine (UA) Normal (Normal); Ketones,Urine Negative (Negative); Leukocyte Esterase,Urine Negative (Negative); Nitrite,Urine Negative (Negative); Protein,Urine Negative (Neg-Trace); Urobilinogen,Urine Normal (Normal)
[2019-10-26 12:32] LABS: Bacteria,Urine None Seen per hpf (None-Few); Squamous Epithelial Cell,Urine Many per lpf (None-Few)
[2019-10-26 12:48] LABS: Amphetamine Screen,Urine Negative ng/mL (Cutoff=1000); Barbiturate Screen,Urine Negative ng/mL (Cutoff=200); Benzodiazepines Screen,Urine Negative ng/mL (Cutoff=200); Cannabinoid Screen,Urine Negative ng/mL (Cutoff = 50); Cocaine Screen,Urine Negative ng/mL (Cutoff= 300); Opiate Screen,Urine Positive ng/mL (Cutoff=300); Phencyclidine Screen,Urine Negative ng/mL (Cutoff=25)
[2019-10-26 12:52] LABS: Hyaline Casts,Urine Few per lpf (None-Few)
[2019-10-26 12:54] LABS: Granular Casts,Urine Few per lpf (None Seen)
[2019-10-26 13:05] LABS: Basophils % 0.2 %; Eosinophils # 0.2 K/mcL (0.0-0.6); Eosinophils % 1.2 %; Hemoglobin 12.4 g/dL (11.5-15.4); Immature Granulocytes % 0.4 % (0-4); Lymphocytes # 2.1 K/mcL (0.6-4.6); Lymphocytes % 15.7 %; Mean Corpuscular Hemoglobin 30.4 pg (28.0-33.3); Mean Platelet Volume 10.9 fL (9.4-12.4); Monocytes # 1.3 K/mcL (0.0-1.3); Monocytes % 9.9 %; Neutrophils # 9.7 K/mcL (1.6-8.9); Platelet Count 225 K/mcL (140-400); Red Blood Count 4.08 M/mcL (3.82-4.97); Red Cell Distribution Width 13.8 % (11.5-14.5); Segmented Neutrophils % 72.6 %; White Blood Count 13.4 K/mcL (4.3-11.1)
[2019-10-26 13:28] LABS: Alanine Aminotransferase 21 Units/L (7-52); Albumin 4.1 g/dL (3.5-5.7); Albumin/Globulin Ratio 1.9 (1.1-2.2); Alkaline Phosphatase 66 Units/L (34-104); Aspartate Amino Transferase 16 Units/L (13-39); BUN/Creatinine Ratio 18 (6-26); Bilirubin,Total 0.3 mg/dL (0.3-1.0); Blood Urea Nitrogen 52 mg/dL (8-23); Calcium 9.1 mg/dL (8.6-10.3); Carbon Dioxide 31 mEq/L (23-29); Chloride 97 mEq/L (98-107); Ethanol < 10 mg/dL (Less than 10); Globulin 2.2 g/dL (2.4-3.5); Glucose 124 mg/dL (70-105); Osmolality,Calculated 299 (280-300); Potassium 4.5 mEq/L (3.5-5.1); Sodium 137 mEq/L (136-145); Total Protein 6.3 g/dL (6.4-8.9); Troponin I < 0.03 ng/mL (< 0.04); eGFR For African Americans 19 (> 60); eGFR For Non-African Americans 16 (> 60)
[2019-10-26] MEDS ORDERED: 0.9 % Sodium Chloride 500 ML IVC STA (13:31)
[2019-10-26] MEDS ORDERED: 0.9 % Sodium Chloride 1,000 ML IVC SCH (13:45)
[2019-10-26 14:44] LABS: Creatine Kinase 50 Units/L (30-223)
[2019-10-26] MEDS ORDERED: Ondansetron 4 MG/2 ML VIAL ONE (15:01)
[2019-10-26] MEDS ORDERED: Ondansetron 4 MG/2 ML VIAL IVP ONE (15:04)
[2019-10-26] MEDS ORDERED: Naloxone 0.4 MG/ML INJ ONE (15:52)
[2019-10-26] MEDS ORDERED: Naloxone 0.4 MG/ML INJ IVP PRN (15:53)
[2019-10-26 16:38] LABS: INR 0.9; Prothrombin Time 10.4 Seconds (9.4-12.1)
[2019-10-26 16:47] LABS: ABG Base Excess 1 mEq/L (-2 to 3); ABG HCO3 34 mEq/L (21-27); ABG Oxygen Saturation 66 % (95-98); ABG PCO2 106 mmHg (35-45); ABG PH 7.12 pH Units (7.32-7.45); ABG PO2 48 mmHg (85-104); ABG TCO2 37 mEq/L (20-26)
[2019-10-26] MEDS: 0.9 % Sodium Chloride 1,000 ML IVC SCH (16:47)
[2019-10-26] MEDS ORDERED: cefTRIAXone 1,000 MG in Water for inj. (sterile) 10 ML IVP SCH (17:00)
[2019-10-26 17:04] LABS: Activated Partial Thrombo Time 28.2 Seconds (26.0-36.0)
[2019-10-26 17:17] LABS: Sodium, Urine 26.4 mEq/L
[2019-10-26] MEDS: *HR* Heparin 5,000 UNIT/ML VIAL SQ SCH (17:24)
[2019-10-26] MEDS: Ondansetron 4 MG/2 ML VIAL IVP SCH ×2 (17:25→23:44)
[2019-10-26 20:16] LABS: ABG Base Excess 4 mEq/L (-2 to 3); ABG HCO3 36 mEq/L (21-27); ABG Oxygen Saturation 89 % (95-98); ABG PCO2 96 mmHg (35-45); ABG PH 7.18 pH Units (7.32-7.45); ABG PO2 75 mmHg (85-104); ABG TCO2 38 mEq/L (20-26); Blood Gas Modality BiLevel
[2019-10-26] MEDS: Ipratropium/Albuterol Neb 3 ML IH SCH (21:34)
[2019-10-26] MEDS ORDERED: Dextrose Gel 15 GM/37.5 ML TUBE PO PRN ×2 (21:39)
[2019-10-26] MEDS ORDERED: *HR* Dextrose 50 % in Water (Syg) 50 ML SYRINGE IVP PRN (21:39)
[2019-10-26] MEDS ORDERED: D5% in Water 1,000 ML IVC PRN (21:39)
[2019-10-26] MEDS ORDERED: Budesonide/Formoterol 160/4.5 1 PUFF INH IH SCH (22:00)
[2019-10-26 22:38] LABS: ABG Base Excess 6 mEq/L (-2 to 3); ABG HCO3 36 mEq/L (21-27); ABG Oxygen Saturation 92 % (95-98); ABG PCO2 83 mmHg (35-45); ABG PH 7.24 pH Units (7.32-7.45); ABG PO2 77 mmHg (85-104); ABG TCO2 38 mEq/L (20-26); Blood Gas Modality AVAPS; Blood Gas VT 450 cc
[2019-10-26] MEDS ORDERED: Acetaminophen IV 500 MG/50 ML INFUS..BTL IVPB ONE (23:44)
[2019-10-27] MEDS: Insulin LISPRO 300 UNITS/3 ML VIAL SQ SCH ×4 (00:13→23:02)
[2019-10-27] MEDS: 0.9 % Sodium Chloride 1,000 ML IVC SCH ×3 (02:30→22:55)
[2019-10-27] MEDS: Ipratropium/Albuterol Neb 3 ML IH SCH ×4 (03:31→21:38)
[2019-10-27 05:08] LABS: Basophils % 0.1 %; Eosinophils % 0.1 %; Hematocrit 38.1 % (35.3-44.9); Hemoglobin 11.7 g/dL (11.5-15.4); Immature Granulocytes % 0.8 % (0-4); Lymphocytes # 0.6 K/mcL (0.6-4.6); Lymphocytes % 5.3 %; Mean Corpuscular HGB Conc 30.7 g/dL (31.6-35.5); Mean Corpuscular Hemoglobin 30.5 pg (28.0-33.3); Mean Corpuscular Volume 99.2 fL (83.0-100.0); Mean Platelet Volume 10.9 fL (9.4-12.4); Monocytes # 0.4 K/mcL (0.0-1.3); Monocytes % 3.3 %; Neutrophils # 10.8 K/mcL (1.6-8.9); Platelet Count 174 K/mcL (140-400); Red Blood Count 3.84 M/mcL (3.82-4.97); Red Cell Distribution Width 13.4 % (11.5-14.5); Segmented Neutrophils % 90.4 %
[2019-10-27 05:25] LABS: Calcium 8.3 mg/dL (8.6-10.3); Phosphorous 2.9 mg/dL (2.7-4.5); Potassium 4.7 mEq/L (3.5-5.1)
[2019-10-27] MEDS: Ondansetron 4 MG/2 ML VIAL IVP SCH ×3 (05:58→17:57)
[2019-10-27] MEDS: *HR* Heparin 5,000 UNIT/ML VIAL SQ SCH ×2 (05:58→16:04)
[2019-10-27] MEDS ORDERED: D5% in Water 1,000 ML IVC PRN ×2 (09:21→13:42)
[2019-10-27] MEDS ORDERED: Naloxone 0.4 MG/ML INJ IVP PRN (09:21)
[2019-10-27] MEDS ORDERED: Dextrose Gel 15 GM/37.5 ML TUBE PO PRN ×4 (09:21→13:42)
[2019-10-27] MEDS ORDERED: *HR* Dextrose 50 % in Water (Syg) 50 ML SYRINGE IVP PRN ×2 (09:21→13:42)
[2019-10-27] MEDS: Budesonide/Formoterol 160/4.5 1 PUFF INH IH SCH ×2 (10:25→21:38)
[2019-10-27] MEDS: MetroNIDAZOLE 500 MG/100 ML 500 MG/100 ML BAG IVPB SCH ×3 (11:44→22:57)
[2019-10-27] MEDS ORDERED: Insulin LISPRO 300 UNITS/3 ML VIAL SQ SCH (12:00)
[2019-10-27] MEDS ORDERED: methylPREDNISolone 125 MG/2 ML VIAL IVP SCH ×2 (16:00)
[2019-10-27] MEDS: methylPREDNISolone 125 MG/2 ML VIAL IVP SCH ×2 (16:03→22:57)
[2019-10-27] MEDS: cefTRIAXone 1,000 MG in Water for inj. (sterile) 10 ML IVP SCH (16:03)
[2019-10-27] MEDS: carvediloL 6.25 MG TABLET PO SCH (16:04)
[2019-10-27] MEDS ORDERED: MetroNIDAZOLE 500 MG/100 ML 500 MG/100 ML BAG IVPB SCH ×2 (16:30)
[2019-10-27] MEDS ORDERED: QUETIAPINE FUMARATE 100 MG PO SCH (21:00)
[2019-10-27] MEDS ORDERED: MIRTAZAPINE 30 MG PO SCH (21:00)
[2019-10-27] MEDS ORDERED: NON-FORMULARY MEDICATION 1 EACH EACH (Carvedilol [Carvedilol] 12.5 MG) PO SCH (21:00)
[2019-10-27] MEDS ORDERED: Carbidopa/Levodopa 25/100 TABLET PO SCH (21:00)
[2019-10-27] MEDS: QUEtiapine Fumarate 100 MG TABLET PO SCH (22:56)
[2019-10-27] MEDS: Mirtazapine 15 MG TABLET PO SCH (22:56)
[2019-10-27] MEDS: Carbidopa/Levodopa 25/100 TABLET PO SCH (22:57)
[2019-10-27] MEDS: *HR* OxyCODONE/APAP 5/325 TABLET PO PRN (23:02)
[2019-10-28] MEDS: Ipratropium/Albuterol Neb 3 ML IH SCH ×4 (03:53→22:16)
[2019-10-28 05:09] LABS: Hematocrit 35.9 % (35.3-44.9); Hemoglobin 11.2 g/dL (11.5-15.4); Mean Corpuscular HGB Conc 31.2 g/dL (31.6-35.5); Mean Corpuscular Hemoglobin 29.8 pg (28.0-33.3); Mean Corpuscular Volume 95.5 fL (83.0-100.0); Platelet Count 186 K/mcL (140-400); Red Blood Count 3.76 M/mcL (3.82-4.97); Red Cell Distribution Width 13.1 % (11.5-14.5); White Blood Count 7.1 K/mcL (4.3-11.1)
[2019-10-28 05:27] LABS: BUN/Creatinine Ratio 37 (6-26); Blood Urea Nitrogen 33 mg/dL (8-23); Calcium 8.7 mg/dL (8.6-10.3); Carbon Dioxide 32 mEq/L (23-29); Chloride 103 mEq/L (98-107); Glucose 185 mg/dL (70-105); Osmolality,Calculated 306 (280-300); Potassium 3.6 mEq/L (3.5-5.1); Sodium 142 mEq/L (136-145); eGFR For African Americans > 60 (> 60); eGFR For Non-African Americans > 60 (> 60)
[2019-10-28] MEDS: Ondansetron 4 MG/2 ML VIAL IVP SCH ×4 (07:23→17:18)
[2019-10-28] MEDS: *HR* Heparin 5,000 UNIT/ML VIAL SQ SCH ×2 (07:23→17:17)
[2019-10-28] MEDS: Insulin LISPRO 300 UNITS/3 ML VIAL SQ SCH ×4 (08:36→21:05)
[2019-10-28] MEDS: MetroNIDAZOLE 500 MG/100 ML 500 MG/100 ML BAG IVPB SCH ×3 (08:36→23:06)
[2019-10-28] MEDS: methylPREDNISolone 125 MG/2 ML VIAL IVP SCH (08:37)
[2019-10-28] MEDS: Carbidopa/Levodopa 25/100 TABLET PO SCH ×2 (08:38→21:06)
[2019-10-28] MEDS: carvediloL 6.25 MG TABLET PO SCH ×2 (08:38→17:18)
[2019-10-28] MEDS: *HR* OxyCODONE/APAP 5/325 TABLET PO PRN ×3 (08:49→23:40)
[2019-10-28] MEDS: Budesonide/Formoterol 160/4.5 1 PUFF INH IH SCH ×2 (09:23→22:16)
[2019-10-28] MEDS: cefTRIAXone 1,000 MG in Water for inj. (sterile) 10 ML IVP SCH (17:17)
[2019-10-28] MEDS ORDERED: amLODIPine 5 MG TABLET PO STA (18:59)
[2019-10-28] MEDS ORDERED: carvediloL 6.25 MG TABLET PO PRN (19:01)
[2019-10-28] MEDS: 0.9 % Sodium Chloride 1,000 ML IVC SCH (19:26)
[2019-10-28] MEDS ORDERED: methylPREDNISolone 125 MG/2 ML VIAL IVP SCH (21:00)
[2019-10-28] MEDS: Mirtazapine 15 MG TABLET PO SCH (21:06)
[2019-10-28] MEDS: QUEtiapine Fumarate 100 MG TABLET PO SCH (21:06)
[2019-10-29] MEDS: Ondansetron 4 MG/2 ML VIAL IVP SCH ×4 (00:04→12:47)
[2019-10-29] MEDS ORDERED: Melatonin 3 MG TABLET PO ONE (03:36)
[2019-10-29] MEDS: Ipratropium/Albuterol Neb 3 ML IH SCH (03:56)
[2019-10-29 04:11] LABS: ABG Base Excess 7 mEq/L (-2 to 3); ABG HCO3 32 mEq/L (21-27); ABG Oxygen Saturation 96 % (95-98); ABG PCO2 47 mmHg (35-45); ABG PH 7.44 pH Units (7.32-7.45); ABG PO2 82 mmHg (85-104); ABG TCO2 33 mEq/L (20-26)
[2019-10-29 04:15] LABS: Hematocrit 37.4 % (35.3-44.9); Hemoglobin 11.7 g/dL (11.5-15.4); Mean Corpuscular HGB Conc 31.3 g/dL (31.6-35.5); Mean Corpuscular Volume 95.9 fL (83.0-100.0); Mean Platelet Volume 11.4 fL (9.4-12.4); Platelet Count 205 K/mcL (140-400); Red Cell Distribution Width 13.2 % (11.5-14.5); White Blood Count 7.4 K/mcL (4.3-11.1)
[2019-10-29 04:33] LABS: BUN/Creatinine Ratio 35 (6-26); Blood Urea Nitrogen 27 mg/dL (8-23); Calcium 8.8 mg/dL (8.6-10.3); Carbon Dioxide 30 mEq/L (23-29); Chloride 103 mEq/L (98-107); Glucose 192 mg/dL (70-105); Osmolality,Calculated 300 (280-300); Potassium 3.5 mEq/L (3.5-5.1); Sodium 140 mEq/L (136-145); eGFR For African Americans > 60 (> 60); eGFR For Non-African Americans > 60 (> 60)
[2019-10-29] MEDS: *HR* Heparin 5,000 UNIT/ML VIAL SQ SCH ×2 (05:38→18:24)
[2019-10-29] MEDS: Insulin LISPRO 300 UNITS/3 ML VIAL SQ SCH ×4 (07:56→21:36)
[2019-10-29] MEDS: Gabapentin 400 MG CAPSULE PO SCH ×3 (08:57→21:36)
[2019-10-29] MEDS: Carbidopa/Levodopa 25/100 TABLET PO SCH ×2 (08:57→21:36)
[2019-10-29] MEDS: lisinopriL 20 MG TABLET PO SCH ×2 (08:57→21:43)
[2019-10-29] MEDS ORDERED: amLODIPine 5 MG TABLET PO SCH (09:00)
[2019-10-29] MEDS ORDERED: Ipratropium/Albuterol Neb 3 ML IH PRN (09:32)
[2019-10-29] MEDS: MetroNIDAZOLE 500 MG/100 ML 500 MG/100 ML BAG IVPB SCH ×3 (10:00→23:29)
[2019-10-29] MEDS: Budesonide/Formoterol 160/4.5 1 PUFF INH IH SCH ×2 (10:04→21:13)
[2019-10-29] MEDS: carvediloL 6.25 MG TABLET PO SCH (16:41)
[2019-10-29] MEDS ORDERED: Ondansetron 4 MG/2 ML VIAL IVP PRN (17:32)
[2019-10-29] MEDS: cefTRIAXone 1,000 MG in Water for inj. (sterile) 10 ML IVP SCH (18:23)
[2019-10-29] MEDS: QUEtiapine Fumarate 100 MG TABLET PO SCH (21:36)
[2019-10-29] MEDS: Mirtazapine 15 MG TABLET PO SCH (21:36)
[2019-10-29] MEDS: *HR* OxyCODONE/APAP 5/325 TABLET PO PRN (21:36)
[2019-10-30] MEDS ORDERED: *HR* Labetalol 20 MG/4 ML SYRINGE IVP ONE (03:53)
[2019-10-30] MEDS: *HR* Heparin 5,000 UNIT/ML VIAL SQ SCH ×2 (05:46→18:12)
[2019-10-30] MEDS ORDERED: 0.9 % Sodium Chloride 1,000 ML IVC SCH (07:00)
[2019-10-30] MEDS: Budesonide/Formoterol 160/4.5 1 PUFF INH IH SCH (07:51)
[2019-10-30] MEDS: Insulin LISPRO 300 UNITS/3 ML VIAL SQ SCH ×3 (08:28→17:56)
[2019-10-30] MEDS ORDERED: *HR* HYDROmorphone 2 MG/ML SYRINGE IVP ONE (08:30)
[2019-10-30] MEDS: carvediloL 6.25 MG TABLET PO SCH ×2 (08:40→17:56)
[2019-10-30] MEDS: lisinopriL 20 MG TABLET PO SCH (08:40)
[2019-10-30] MEDS: Gabapentin 400 MG CAPSULE PO SCH ×2 (08:40→14:17)
[2019-10-30] MEDS: Carbidopa/Levodopa 25/100 TABLET PO SCH (08:40)
[2019-10-30] MEDS: MetroNIDAZOLE 500 MG/100 ML 500 MG/100 ML BAG IVPB SCH (08:43)
[2019-10-30] MEDS ORDERED: amLODIPine 5 MG TABLET PO SCH (09:00)
[2019-10-30] MEDS ORDERED: MethylPREDNISolone 40 MG/ML VIAL IVP SCH (09:00)
[2019-10-30 09:27] LABS: BUN/Creatinine Ratio 23 (6-26); Blood Urea Nitrogen 19 mg/dL (8-23); Carbon Dioxide 35 mEq/L (23-29); Chloride 102 mEq/L (98-107); Glucose 120 mg/dL (70-105); Osmolality,Calculated 301 (280-300); Potassium 3.3 mEq/L (3.5-5.1); Sodium 144 mEq/L (136-145); eGFR For African Americans > 60 (> 60); eGFR For Non-African Americans > 60 (> 60)
[2019-10-30] MEDS ORDERED: Spironolactone 25 MG TABLET PO SCH (10:45)
[2019-10-30] MEDS: *HR* OxyCODONE Immed Rel 5 MG TABLET PO SCH ×2 (13:46→17:56)
[2019-10-30 14:08] VITALS: BP 138/78
[2019-10-30] MEDS ORDERED: metroNIDAZOLE 500 MG TABLET PO SCH (15:00)
[2019-10-30] MEDS ORDERED: Cefdinir 300 MG CAPSULE PO SCH (21:00)
[2019-10-31] MEDS ORDERED: predniSONE 20 MG TABLET PO SCH (09:00)
== END 2019-10-30 19:36 | DRG 917 ==
LOC: 2ANU 11:40 → EMEROOARM 11:40 → ICNU 15:30 → SUATTDRO 10-27 09:46 → 2NNU 10-27 11:06 → ICNU 10-27 11:18 → 3ANU 10-27 13:51
PROVIDERS: ADMIT Internal Medicine; ATTEND Pharmacist

== ENCOUNTER 2019-12-16 22:29 | Observation (INO) ==
[2019-12-17] MEDS ORDERED: Naloxone 0.4 MG/ML INJ IVP PRN (01:13)
[2019-12-17] MEDS ORDERED: Ondansetron 4 MG/2 ML VIAL IVP PRN (01:13)
[2019-12-17 02:20] LABS: Basophils % 0.7 %; Eosinophils # 0.1 K/mcL (0.0-0.6); Eosinophils % 1.6 %; Hematocrit 37.3 % (35.3-44.9); Immature Granulocytes % 3.5 % (0-4); Lymphocytes # 0.8 K/mcL (0.6-4.6); Lymphocytes % 19.2 %; Mean Corpuscular HGB Conc 32.2 g/dL (31.6-35.5); Mean Corpuscular Hemoglobin 30.8 pg (28.0-33.3); Mean Corpuscular Volume 95.9 fL (83.0-100.0); Mean Platelet Volume 10.8 fL (9.4-12.4); Monocytes # 0.2 K/mcL (0.0-1.3); Monocytes % 3.7 %; Neutrophils # 3.1 K/mcL (1.6-8.9); Platelet Count 157 K/mcL (140-400); Red Blood Count 3.89 M/mcL (3.82-4.97); Red Cell Distribution Width 13.8 % (11.5-14.5); Segmented Neutrophils % 71.3 %; White Blood Count 4.3 K/mcL (4.3-11.1)
[2019-12-17] MEDS ORDERED: *HR* Labetalol 20 MG/4 ML SYRINGE IVP PRN (02:23)
[2019-12-17 02:33] LABS: Prothrombin Time 11.3 Seconds (9.4-12.1)
[2019-12-17 02:40] LABS: Alanine Aminotransferase 12 Units/L (7-52); Albumin 4.3 g/dL (3.5-5.7); Albumin/Globulin Ratio 1.8 (1.1-2.2); Alkaline Phosphatase 56 Units/L (34-104); Aspartate Amino Transferase 15 Units/L (13-39); BUN/Creatinine Ratio 23 (6-26); Bilirubin,Total 0.4 mg/dL (0.3-1.0); Blood Urea Nitrogen 20 mg/dL (8-23); Calcium 9.1 mg/dL (8.6-10.3); Carbon Dioxide 33 mEq/L (23-29); Chloride 99 mEq/L (98-107); Globulin 2.4 g/dL (2.4-3.5); Glucose 187 mg/dL (70-105); Magnesium 1.7 mg/dL (1.6-2.6); Osmolality,Calculated 300 (280-300); Potassium 3.6 mEq/L (3.5-5.1); Sodium 141 mEq/L (136-145); Total Protein 6.7 g/dL (6.4-8.9); Troponin I < 0.03 ng/mL (< 0.04); eGFR For African Americans > 60 (> 60); eGFR For Non-African Americans > 60 (> 60)
[2019-12-17 02:41] LABS: Lactate Dehydrogenase 167 Units/L (140-271)
[2019-12-17 02:58] LABS: Ferritin 71 ng/mL (10-120)
[2019-12-17] MEDS ORDERED: Dextrose Gel 15 GM/37.5 ML TUBE PO PRN ×2 (04:37)
[2019-12-17] MEDS ORDERED: *HR* Dextrose 50 % in Water (Vial) 50 ML VIAL IVP PRN (04:37)
[2019-12-17] MEDS ORDERED: D5% in Water 1,000 ML IVC PRN (04:37)
[2019-12-17 04:48] LABS: C-Reactive Protein 11 mg/L (Less than 10)
[2019-12-17] MEDS ORDERED: Furosemide 40 MG/4 ML VIAL IVP ONE (04:49)
[2019-12-17] MEDS ORDERED: *HR* Enoxaparin 80 MG/0.8 ML SYRINGE SQ SCH (05:00)
[2019-12-17] MEDS: Insulin LISPRO 300 UNITS/3 ML VIAL SQ SCH ×2 (08:18→11:10)
[2019-12-17] MEDS ORDERED: Carbidopa/Levodopa 25/100 TABLET PO SCH (09:00)
[2019-12-17] MEDS ORDERED: Dexamethasone 10 MG/ML VIAL IVP SCH (09:00)
[2019-12-17] MEDS ORDERED: lisinopriL 20 MG TABLET PO SCH (09:00)
[2019-12-17] MEDS ORDERED: *HR* OxyCODONE Immed Rel 5 MG TABLET PO SCH (09:00)
[2019-12-17] MEDS ORDERED: Gabapentin 400 MG CAPSULE PO SCH (09:00)
[2019-12-17] MEDS ORDERED: carvediloL 6.25 MG TABLET PO SCH (09:00)
[2019-12-17] MEDS ORDERED: amLODIPine 5 MG TABLET PO SCH (09:00)
[2019-12-17] MEDS ORDERED: *HR* OxyCODONE Immed Rel 15 MG TABLET PO PRN (09:14)
[2019-12-17] MEDS ORDERED: tiZANidine 4 MG TABLET PO PRN (09:14)
[2019-12-17] MEDS ORDERED: Budesonide/Formoterol 80/4.5 1 PUFF INH IH SCH (10:00)
[2019-12-17 11:11] VITALS: BP 161/73
[2019-12-17] MEDS ORDERED: tiZANidine 4 MG TABLET PO SCH (21:00)
[2019-12-17] MEDS ORDERED: QUEtiapine Fumarate 100 MG TABLET PO SCH (21:00)
[2019-12-17] MEDS ORDERED: Insulin LISPRO 300 UNITS/3 ML VIAL SQ SCH (21:00)
[2019-12-17] MEDS ORDERED: Insulin DETEMIR 100 UNIT/ML X5UNITS SQ SCH (21:00)
== END 2019-12-17 13:46 | disposition home or self-care (01) ==
LOC: 2NENU → SUATTDRO 12-17 00:11
PROVIDERS: ADMIT Internal Medicine; ATTEND Internal Medicine

== ENCOUNTER 2020-01-15 14:34 | Inpatient (IN) ==
[2020-01-15 16:27] LABS: Basophils % 0.3 %; Eosinophils # 0.3 K/mcL (0.0-0.6); Eosinophils % 3.8 %; Hematocrit 34.8 % (35.3-44.9); Hemoglobin 10.6 g/dL (11.5-15.4); Immature Granulocytes % 0.5 % (0-4); Lymphocytes # 1.7 K/mcL (0.6-4.6); Lymphocytes % 26.5 %; Mean Corpuscular HGB Conc 30.5 g/dL (31.6-35.5); Mean Corpuscular Hemoglobin 29.9 pg (28.0-33.3); Mean Corpuscular Volume 98.3 fL (83.0-100.0); Mean Platelet Volume 10.9 fL (9.4-12.4); Monocytes # 1.1 K/mcL (0.0-1.3); Monocytes % 17.2 %; Neutrophils # 3.4 K/mcL (1.6-8.9); Platelet Count 234 K/mcL (140-400); Red Blood Count 3.54 M/mcL (3.82-4.97); Red Cell Distribution Width 14.1 % (11.5-14.5); Segmented Neutrophils % 51.7 %; White Blood Count 6.6 K/mcL (4.3-11.1)
[2020-01-15 16:45] LABS: Bilirubin,Urine Negative (Negative); Blood,Urine Negative (Negative); Clarity,Urine Clear (Clear); Color,Urine Light-Yellow (Yellow); Glucose,Urine (UA) Normal (Normal); Ketones,Urine Negative (Negative); Leukocyte Esterase,Urine Negative (Negative); Nitrite,Urine Negative (Negative); Protein,Urine Negative (Neg-Trace); Specific Gravity,Urine 1.009 (1.010-1.025); Urobilinogen,Urine Normal (Normal)
[2020-01-15 16:46] LABS: Calcium 9.3 mg/dL (8.6-10.3); Potassium 4.4 mEq/L (3.5-5.1)
[2020-01-15] MEDS ORDERED: *HR* FentaNYL (PF) 100 MCG/2 ML VIAL IVP ONE (16:51)
[2020-01-15] MEDS ORDERED: 0.9 % Sodium Chloride 500 ML IVC ONE (16:52)
[2020-01-15] MEDS ORDERED: Naloxone 0.4 MG/ML INJ IVP PRN (19:14)
[2020-01-15] MEDS ORDERED: 0.9 % Sodium Chloride 1,000 ML IVC SCH (19:15)
[2020-01-15] MEDS ORDERED: Nitroglycerin 0.4 MG TAB.SUBL SL PRN (19:55)
[2020-01-15] MEDS ORDERED: *HR* Dextrose 50 % in Water (Vial) 50 ML VIAL IVP PRN (20:00)
[2020-01-15] MEDS ORDERED: D5% in Water 1,000 ML IVC PRN (20:00)
[2020-01-15] MEDS ORDERED: Dextrose Gel 15 GM/37.5 ML TUBE PO PRN ×2 (20:00)
[2020-01-15 20:25] LABS: Adenovirus Not Detected (Not Detect); Bordetella Pertussis Not Detected (Not Detect); Chlamydophila pneumoniae Not Detected (Not Detect); Coronavirus 229E Not Detected (Not Detect); Coronavirus HKU1 Not Detected (Not Detect); Coronavirus NL63 Not Detected (Not Detect); Coronavirus OC43 Not Detected (Not Detect); Human Metapneumovirus Not Detected (Not Detect); Human Rhinovirus/Enterovirus Not Detected (Not Detect); Influenza A Subtype 2009 H1 Not Detected (Not Detect); Influenza B Not Detected (Not Detect); Mycoplasma pneumoniae Not Detected (Not Detect); Parainfluenza Virus 1 Not Detected (Not Detect); Parainfluenza Virus 2 Not Detected (Not Detect); Parainfluenza Virus 3 Not Detected (Not Detect); Parainfluenza Virus 4 Not Detected (Not Detect); Respiratory Syncytial Virus Not Detected (Not Detect); SARS-CoV-2 Not Detected (Not Detect)
[2020-01-15] MEDS ORDERED: NON-FORMULARY MEDICATION 1 EACH EACH (Fluticasone/Vilanterol [Breo Ellipta 100-25 Mcg Inh] IN SCH (21:00)
[2020-01-15] MEDS ORDERED: tiZANidine 4 MG TABLET PO SCH (21:00)
[2020-01-15] MEDS: QUEtiapine Fumarate 100 MG TABLET PO SCH (22:26)
[2020-01-15] MEDS: *HR* OxyCODONE Immed Rel 15 MG TABLET PO SCH (22:26)
[2020-01-15] MEDS: carvediloL 6.25 MG TABLET PO SCH (22:27)
[2020-01-15] MEDS: Budesonide/Formoterol 80/4.5 1 PUFF INH IH SCH (22:33)
[2020-01-15] MEDS ORDERED: Ipratropium/Albuterol Neb 3 ML IH PRN (22:43)
[2020-01-16 03:57] LABS: Basophils % 0.3 %; Eosinophils # 0.2 K/mcL (0.0-0.6); Eosinophils % 2.8 %; Hematocrit 31.1 % (35.3-44.9); Hemoglobin 9.6 g/dL (11.5-15.4); Immature Granulocytes % 0.6 % (0-4); Lymphocytes # 1.4 K/mcL (0.6-4.6); Lymphocytes % 21.4 %; Mean Corpuscular HGB Conc 30.9 g/dL (31.6-35.5); Mean Corpuscular Hemoglobin 31.1 pg (28.0-33.3); Mean Corpuscular Volume 100.6 fL (83.0-100.0); Mean Platelet Volume 11.2 fL (9.4-12.4); Monocytes # 0.8 K/mcL (0.0-1.3); Monocytes % 12.8 %; Neutrophils # 3.9 K/mcL (1.6-8.9); Platelet Count 202 K/mcL (140-400); Red Blood Count 3.09 M/mcL (3.82-4.97); Red Cell Distribution Width 14.4 % (11.5-14.5); Segmented Neutrophils % 62.1 %; White Blood Count 6.3 K/mcL (4.3-11.1)
[2020-01-16 04:17] LABS: Albumin 3.5 g/dL (3.5-5.7); Albumin/Globulin Ratio 1.6 (1.1-2.2); Bilirubin,Total 0.3 mg/dL (0.3-1.0); Calcium 8.6 mg/dL (8.6-10.3); Globulin 2.2 g/dL (2.4-3.5); Potassium 4.7 mEq/L (3.5-5.1); Total Protein 5.7 g/dL (6.4-8.9)
[2020-01-16] MEDS: *HR* Heparin 5,000 UNIT/ML VIAL SQ SCH ×2 (05:32→16:56)
[2020-01-16] MEDS: Budesonide/Formoterol 80/4.5 1 PUFF INH IH SCH ×2 (07:49→19:42)
[2020-01-16] MEDS: Insulin LISPRO 300 UNITS/3 ML VIAL SQ SCH ×3 (07:58→16:52)
[2020-01-16 08:59] LABS: Sodium, Urine 27.3 mEq/L
[2020-01-16] MEDS ORDERED: Gabapentin 400 MG CAPSULE PO SCH (09:00)
[2020-01-16] MEDS: carvediloL 6.25 MG TABLET PO SCH ×2 (09:40→16:57)
[2020-01-16] MEDS: *HR* OxyCODONE Immed Rel 15 MG TABLET PO SCH ×3 (09:44→21:00)
[2020-01-16] MEDS: Cholecalciferol (D-3) 1,000 UNIT (25MCG) TABLET PO SCH (09:45)
[2020-01-16] MEDS: 0.9 % Sodium Chloride 1,000 ML IVC SCH (14:50)
[2020-01-16] MEDS: QUEtiapine Fumarate 100 MG TABLET PO SCH (21:00)
[2020-01-17] MEDS: 0.9 % Sodium Chloride 1,000 ML IVC SCH (01:55)
[2020-01-17 02:04] LABS: Hematocrit 28.1 % (35.3-44.9); Mean Corpuscular Hemoglobin 31.5 pg (28.0-33.3); Mean Corpuscular Volume 98.3 fL (83.0-100.0); Mean Platelet Volume 11.2 fL (9.4-12.4); Platelet Count 165 K/mcL (140-400); Red Blood Count 2.86 M/mcL (3.82-4.97); Red Cell Distribution Width 13.6 % (11.5-14.5)
[2020-01-17 02:05] LABS: VBG HCO3 34 mEq/L (21-27); VBG PCO2 66 mmHg (41-51); VBG PH 7.32 pH Units (7.32-7.42); VBG PO2 162 mmHg (25-50)
[2020-01-17 02:23] LABS: Calcium 8.7 mg/dL (8.6-10.3); Potassium 3.6 mEq/L (3.5-5.1)
[2020-01-17] MEDS: *HR* Heparin 5,000 UNIT/ML VIAL SQ SCH ×2 (05:39→17:12)
[2020-01-17] MEDS: Budesonide/Formoterol 80/4.5 1 PUFF INH IH SCH ×2 (07:15→21:58)
[2020-01-17] MEDS: Insulin LISPRO 300 UNITS/3 ML VIAL SQ SCH ×3 (07:24→16:38)
[2020-01-17] MEDS: carvediloL 6.25 MG TABLET PO SCH ×2 (09:09→16:38)
[2020-01-17] MEDS: Cholecalciferol (D-3) 1,000 UNIT (25MCG) TABLET PO SCH (09:09)
[2020-01-17] MEDS: *HR* OxyCODONE Immed Rel 15 MG TABLET PO SCH ×3 (09:09→21:49)
[2020-01-17] MEDS: Gabapentin 100 MG CAPSULE PO SCH (09:10)
[2020-01-17] MEDS: QUEtiapine Fumarate 100 MG TABLET PO SCH (21:50)
[2020-01-18 04:25] LABS: Basophils % 0.5 %; Eosinophils # 0.2 K/mcL (0.0-0.6); Hematocrit 30.8 % (35.3-44.9); Hemoglobin 9.6 g/dL (11.5-15.4); Immature Granulocytes % 1.3 % (0-4); Lymphocytes # 1.2 K/mcL (0.6-4.6); Lymphocytes % 31.5 %; Mean Corpuscular HGB Conc 31.2 g/dL (31.6-35.5); Mean Corpuscular Hemoglobin 30.2 pg (28.0-33.3); Mean Corpuscular Volume 96.9 fL (83.0-100.0); Mean Platelet Volume 10.7 fL (9.4-12.4); Monocytes # 0.6 K/mcL (0.0-1.3); Monocytes % 15.7 %; Neutrophils # 1.8 K/mcL (1.6-8.9); Platelet Count 180 K/mcL (140-400); Red Blood Count 3.18 M/mcL (3.82-4.97); Red Cell Distribution Width 13.4 % (11.5-14.5); White Blood Count 3.8 K/mcL (4.3-11.1)
[2020-01-18 04:44] LABS: BUN/Creatinine Ratio 27 (6-26); Blood Urea Nitrogen 22 mg/dL (8-23); Calcium 8.9 mg/dL (8.6-10.3); Carbon Dioxide 35 mEq/L (23-29); Chloride 103 mEq/L (98-107); Glucose 121 mg/dL (70-105); Osmolality,Calculated 303 (280-300); Sodium 144 mEq/L (136-145); eGFR For African Americans > 60 (> 60); eGFR For Non-African Americans > 60 (> 60)
[2020-01-18] MEDS: *HR* Heparin 5,000 UNIT/ML VIAL SQ SCH ×2 (06:09→16:52)
[2020-01-18] MEDS: carvediloL 6.25 MG TABLET PO SCH ×2 (07:12→16:51)
[2020-01-18] MEDS: Insulin LISPRO 300 UNITS/3 ML VIAL SQ SCH ×3 (07:37→16:51)
[2020-01-18] MEDS: Gabapentin 100 MG CAPSULE PO SCH (08:31)
[2020-01-18] MEDS: Cholecalciferol (D-3) 1,000 UNIT (25MCG) TABLET PO SCH (08:32)
[2020-01-18] MEDS: *HR* OxyCODONE Immed Rel 15 MG TABLET PO SCH ×3 (08:32→20:40)
[2020-01-18] MEDS: predniSONE 20 MG TABLET PO SCH (08:32)
[2020-01-18] MEDS ORDERED: Azithromycin 250 MG TABLET PO SCH (09:00)
[2020-01-18] MEDS: Budesonide/Formoterol 80/4.5 1 PUFF INH IH SCH ×2 (10:17→21:13)
[2020-01-18] MEDS: *HR* Metformin 500 MG TABLET PO SCH (16:51)
[2020-01-18] MEDS: QUEtiapine Fumarate 100 MG TABLET PO SCH (20:41)
[2020-01-18] MEDS: lisinopriL 20 MG TABLET PO SCH (20:41)
[2020-01-19 04:05] LABS: Hematocrit 30.2 % (35.3-44.9); Hemoglobin 9.6 g/dL (11.5-15.4); Mean Corpuscular HGB Conc 31.8 g/dL (31.6-35.5); Mean Corpuscular Volume 97.4 fL (83.0-100.0); Platelet Count 193 K/mcL (140-400); Red Cell Distribution Width 13.1 % (11.5-14.5); White Blood Count 4.5 K/mcL (4.3-11.1)
[2020-01-19 04:20] LABS: BUN/Creatinine Ratio 29 (6-26); Blood Urea Nitrogen 24 mg/dL (8-23); Carbon Dioxide 33 mEq/L (23-29); Chloride 101 mEq/L (98-107); Glucose 128 mg/dL (70-105); Osmolality,Calculated 300 (280-300); Sodium 142 mEq/L (136-145); eGFR For African Americans > 60 (> 60); eGFR For Non-African Americans > 60 (> 60)
[2020-01-19] MEDS: *HR* Heparin 5,000 UNIT/ML VIAL SQ SCH ×2 (05:59→17:34)
[2020-01-19] MEDS: *HR* OxyCODONE Immed Rel 15 MG TABLET PO SCH ×3 (09:09→20:06)
[2020-01-19] MEDS: lisinopriL 20 MG TABLET PO SCH ×2 (09:09→20:06)
[2020-01-19] MEDS: Doxycycline 100 MG CAPSULE PO SCH ×2 (09:09→20:06)
[2020-01-19] MEDS: Gabapentin 100 MG CAPSULE PO SCH (09:09)
[2020-01-19] MEDS: Cholecalciferol (D-3) 1,000 UNIT (25MCG) TABLET PO SCH (09:11)
[2020-01-19] MEDS: carvediloL 6.25 MG TABLET PO SCH ×2 (09:11→17:33)
[2020-01-19] MEDS: predniSONE 20 MG TABLET PO SCH (09:11)
[2020-01-19] MEDS: *HR* Metformin 500 MG TABLET PO SCH ×2 (09:12→17:34)
[2020-01-19] MEDS: Insulin LISPRO 300 UNITS/3 ML VIAL SQ SCH ×3 (09:13→17:34)
[2020-01-19] MEDS: Budesonide/Formoterol 80/4.5 1 PUFF INH IH SCH ×2 (09:47→21:26)
[2020-01-19] MEDS: QUEtiapine Fumarate 100 MG TABLET PO SCH (20:07)
[2020-01-20] MEDS: *HR* Heparin 5,000 UNIT/ML VIAL SQ SCH (05:27)
[2020-01-20] MEDS: Insulin LISPRO 300 UNITS/3 ML VIAL SQ SCH ×2 (08:43→11:19)
[2020-01-20] MEDS: Gabapentin 100 MG CAPSULE PO SCH (08:47)
[2020-01-20] MEDS: Cholecalciferol (D-3) 1,000 UNIT (25MCG) TABLET PO SCH (08:47)
[2020-01-20] MEDS: Doxycycline 100 MG CAPSULE PO SCH (08:47)
[2020-01-20] MEDS: *HR* OxyCODONE Immed Rel 15 MG TABLET PO SCH ×2 (08:47→14:07)
[2020-01-20] MEDS: predniSONE 20 MG TABLET PO SCH (08:47)
[2020-01-20] MEDS: *HR* Metformin 500 MG TABLET PO SCH (08:48)
[2020-01-20] MEDS: carvediloL 6.25 MG TABLET PO SCH (08:48)
[2020-01-20] MEDS: lisinopriL 20 MG TABLET PO SCH (08:48)
[2020-01-20] MEDS: Budesonide/Formoterol 80/4.5 1 PUFF INH IH SCH (09:40)
[2020-01-20 10:16] VITALS: BP 136/79
== END 2020-01-20 14:28 | DRG 683 ==
LOC: 3ANU 14:34 → EMEROOARM 14:34 → SUATTDRO 20:53 → 3ANU 21:44
PROVIDERS: ADMIT Internal Medicine; ATTEND Internal Medicine

== ENCOUNTER 2020-02-17 12:02 | Inpatient (IN) ==
[2020-02-17 12:44] LABS: Basophils % 0.2 %; Eosinophils # 0.2 K/mcL (0.0-0.6); Eosinophils % 2.8 %; Hematocrit 34.3 % (35.3-44.9); Hemoglobin 10.6 g/dL (11.5-15.4); Immature Granulocytes % 0.4 % (0-4); Lymphocytes # 1.5 K/mcL (0.6-4.6); Lymphocytes % 18.5 %; Mean Corpuscular HGB Conc 30.9 g/dL (31.6-35.5); Mean Corpuscular Hemoglobin 30.4 pg (28.0-33.3); Mean Corpuscular Volume 98.3 fL (83.0-100.0); Mean Platelet Volume 11.3 fL (9.4-12.4); Monocytes # 1.4 K/mcL (0.0-1.3); Platelet Count 198 K/mcL (140-400); Red Blood Count 3.49 M/mcL (3.82-4.97); Red Cell Distribution Width 13.2 % (11.5-14.5); Segmented Neutrophils % 61.1 %; White Blood Count 8.2 K/mcL (4.3-11.1)
[2020-02-17 12:47] LABS: Bilirubin,Urine Negative (Negative); Blood,Urine Negative (Negative); Clarity,Urine Clear (Clear); Color,Urine Colorless (Yellow); Glucose,Urine (UA) Normal (Normal); Ketones,Urine Negative (Negative); Leukocyte Esterase,Urine Negative (Negative); Nitrite,Urine Negative (Negative); Protein,Urine Trace mg/dL (Neg-Trace); Specific Gravity,Urine 1.009 (1.010-1.025); Urobilinogen,Urine Normal (Normal)
[2020-02-17 13:06] LABS: Alanine Aminotransferase 7 Units/L (7-52); Albumin 3.8 g/dL (3.5-5.7); Albumin/Globulin Ratio 1.9 (1.1-2.2); Alkaline Phosphatase 56 Units/L (34-104); Aspartate Amino Transferase 14 Units/L (13-39); BUN/Creatinine Ratio 16 (6-26); Bilirubin,Total 0.4 mg/dL (0.3-1.0); Blood Urea Nitrogen 48 mg/dL (8-23); Calcium 9.1 mg/dL (8.6-10.3); Carbon Dioxide 33 mEq/L (23-29); Chloride 93 mEq/L (98-107); Glucose 128 mg/dL (70-105); Magnesium 1.9 mg/dL (1.6-2.6); Osmolality,Calculated 298 (280-300); Potassium 3.9 mEq/L (3.5-5.1); Sodium 137 mEq/L (136-145); Total Protein 5.8 g/dL (6.4-8.9); Troponin I < 0.03 ng/mL (< 0.04); eGFR For African Americans 18 (> 60); eGFR For Non-African Americans 15 (> 60)
[2020-02-17] MEDS ORDERED: 0.9 % Sodium Chloride 1,000 ML IVC ONE (13:42)
[2020-02-17] MEDS ORDERED: Ondansetron 4 MG/2 ML VIAL IVP PRN (14:22)
[2020-02-17] MEDS ORDERED: Naloxone 0.4 MG/ML INJ IVP PRN (14:22)
[2020-02-17] MEDS ORDERED: 0.9 % Sodium Chloride 500 ML IVC ONE (14:24)
[2020-02-17] MEDS ORDERED: Ipratropium/Albuterol Neb 3 ML IH PRN (14:33)
[2020-02-17 15:20] LABS: Adenovirus Not Detected (Not Detect); Bordetella Pertussis Not Detected (Not Detect); Chlamydophila pneumoniae Not Detected (Not Detect); Coronavirus 229E Not Detected (Not Detect); Coronavirus HKU1 Not Detected (Not Detect); Coronavirus NL63 Not Detected (Not Detect); Coronavirus OC43 Not Detected (Not Detect); Human Metapneumovirus Not Detected (Not Detect); Human Rhinovirus/Enterovirus Not Detected (Not Detect); Influenza A Subtype 2009 H1 Not Detected (Not Detect); Influenza B Not Detected (Not Detect); Mycoplasma pneumoniae Not Detected (Not Detect); Parainfluenza Virus 1 Not Detected (Not Detect); Parainfluenza Virus 2 Not Detected (Not Detect); Parainfluenza Virus 3 Not Detected (Not Detect); Parainfluenza Virus 4 Not Detected (Not Detect); Respiratory Syncytial Virus Not Detected (Not Detect); SARS-CoV-2 Not Detected (Not Detect)
[2020-02-17] MEDS: *HR* Heparin 5,000 UNIT/ML VIAL SQ SCH (17:37)
[2020-02-17] MEDS: 0.9 % Sodium Chloride 1,000 ML IVC SCH (19:29)
[2020-02-17] MEDS ORDERED: *HR* HYDROmorphone 2 MG TABLET PO ONE (22:15)
[2020-02-18] MEDS: 0.9 % Sodium Chloride 1,000 ML IVC SCH ×3 (05:26→21:27)
[2020-02-18] MEDS: *HR* Heparin 5,000 UNIT/ML VIAL SQ SCH ×2 (05:26→18:36)
[2020-02-18 06:03] LABS: Calcium 8.7 mg/dL (8.6-10.3); Magnesium 1.9 mg/dL (1.6-2.6); Potassium 3.6 mEq/L (3.5-5.1)
[2020-02-18 08:30] LABS: Basophils % 0.4 %; Eosinophils # 0.3 K/mcL (0.0-0.6); Eosinophils % 5.8 %; Hematocrit 39.6 % (35.3-44.9); Hemoglobin 12.5 g/dL (11.5-15.4); Immature Granulocytes % 0.6 % (0-4); Lymphocytes # 1.3 K/mcL (0.6-4.6); Lymphocytes % 28.2 %; Mean Corpuscular HGB Conc 31.6 g/dL (31.6-35.5); Mean Corpuscular Hemoglobin 31.1 pg (28.0-33.3); Mean Corpuscular Volume 98.5 fL (83.0-100.0); Mean Platelet Volume 11.3 fL (9.4-12.4); Monocytes # 0.6 K/mcL (0.0-1.3); Monocytes % 13.4 %; Neutrophils # 2.4 K/mcL (1.6-8.9); Platelet Count 204 K/mcL (140-400); Red Blood Count 4.02 M/mcL (3.82-4.97); Red Cell Distribution Width 12.7 % (11.5-14.5); Segmented Neutrophils % 51.6 %; White Blood Count 4.6 K/mcL (4.3-11.1)
[2020-02-18] MEDS ORDERED: HYDROcodone BIT/Homatropine LQ 5 MG/5 ML UDC PO PRN (09:24)
[2020-02-18] MEDS: Budesonide/Formoterol 80/4.5 1 PUFF INH IH SCH ×2 (11:15→19:59)
[2020-02-18] MEDS ORDERED: Acetaminophen 325 MG TABLET PO PRN (15:54)
[2020-02-18] MEDS: *HR* HYDROcodone/Acet 5/325 mg TABLET PO PRN ×2 (16:11→22:22)
[2020-02-18] MEDS ORDERED: QUEtiapine Fumarate 300 MG TABLET PO SCH (21:00)
[2020-02-19 04:20] LABS: Basophils % 0.5 %; Eosinophils # 0.2 K/mcL (0.0-0.6); Eosinophils % 4.8 %; Immature Granulocytes % 0.5 % (0-4); Lymphocytes # 1.3 K/mcL (0.6-4.6); Lymphocytes % 32.4 %; Mean Corpuscular HGB Conc 30.9 g/dL (31.6-35.5); Mean Corpuscular Hemoglobin 29.7 pg (28.0-33.3); Mean Corpuscular Volume 96.2 fL (83.0-100.0); Mean Platelet Volume 11.1 fL (9.4-12.4); Monocytes # 0.6 K/mcL (0.0-1.3); Monocytes % 14.3 %; Neutrophils # 1.9 K/mcL (1.6-8.9); Platelet Count 193 K/mcL (140-400); Red Blood Count 3.64 M/mcL (3.82-4.97); Red Cell Distribution Width 12.3 % (11.5-14.5); Segmented Neutrophils % 47.5 %; White Blood Count 3.9 K/mcL (4.3-11.1)
[2020-02-19 04:21] LABS: Hemoglobin 10.8 g/dL (11.5-15.4)
[2020-02-19] MEDS: *HR* Heparin 5,000 UNIT/ML VIAL SQ SCH (04:27)
[2020-02-19 04:40] LABS: Potassium 3.4 mEq/L (3.5-5.1)
[2020-02-19] MEDS: Budesonide/Formoterol 80/4.5 1 PUFF INH IH SCH (07:36)
[2020-02-19] MEDS: *HR* HYDROcodone/Acet 5/325 mg TABLET PO PRN (07:43)
[2020-02-19] MEDS ORDERED: carvediloL 6.25 MG TABLET PO SCH ×2 (08:00→17:00)
[2020-02-19] MEDS ORDERED: amLODIPine 5 MG TABLET PO SCH (09:00)
[2020-02-19] MEDS ORDERED: Gabapentin 400 MG CAPSULE PO SCH (09:00)
[2020-02-19 11:09] VITALS: BP 159/83
== END 2020-02-19 13:58 | disposition home health service (06) | DRG 683 ==
LOC: EMEROOARM 12:02 → 2ANU 12:02 → SUATTDRO 16:27 → 2ANU 16:51
PROVIDERS: ADMIT Pharmacist; ATTEND Internal Medicine

== ENCOUNTER 2020-12-08 09:33 | Inpatient (IN) ==
[2020-12-08] MEDS ORDERED: 0.9 % Sodium Chloride 1,000 ML IVC ONE ×2 (09:49→10:16)
[2020-12-08 10:38] LABS: Alanine Aminotransferase 49 Units/L (7-52); Albumin 3.8 g/dL (3.5-5.7); Albumin/Globulin Ratio 1.7 (1.1-2.2); Alkaline Phosphatase 69 Units/L (34-104); Aspartate Amino Transferase 42 Units/L (13-39); BUN/Creatinine Ratio 21 (6-26); Bilirubin,Total 0.4 mg/dL (0.3-1.0); Blood Urea Nitrogen 49 mg/dL (8-23); Calcium 9.1 mg/dL (8.6-10.3); Carbon Dioxide 33 mEq/L (23-29); Chloride 96 mEq/L (98-107); Globulin 2.3 g/dL (2.4-3.5); Glucose 146 mg/dL (70-105); Osmolality,Calculated 296 (280-300); Potassium 4.2 mEq/L (3.5-5.1); Sodium 135 mEq/L (136-145); Total Protein 6.1 g/dL (6.4-8.9); Troponin I < 0.03 ng/mL (< 0.04); eGFR For African Americans 24 (> 60); eGFR For Non-African Americans 20 (> 60)
[2020-12-08] MEDS ORDERED: Cefepime HCl 2,000 MG in 0.9 % Sodium Chloride Mini Bag 100 ML IVPB STA (11:15)
[2020-12-08] MEDS ORDERED: Norepinephrine 4 MG in 0.9 % Sodium Chloride 250 ML IVC SCH (11:15)
[2020-12-08 11:38] LABS: Basophils % 0.4 %; Eosinophils # 0.3 K/mcL (0.0-0.6); Eosinophils % 4.1 %; Hematocrit 33.1 % (35.3-44.9); Hemoglobin 9.9 g/dL (11.5-15.4); Immature Granulocytes % 0.4 % (0-4); Lymphocytes # 1.4 K/mcL (0.6-4.6); Lymphocytes % 20.7 %; Mean Corpuscular HGB Conc 29.9 g/dL (31.6-35.5); Mean Corpuscular Hemoglobin 29.1 pg (28.0-33.3); Mean Corpuscular Volume 97.4 fL (83.0-100.0); Mean Platelet Volume 11.9 fL (9.4-12.4); Monocytes # 1.1 K/mcL (0.0-1.3); Nucleated Red Blood Cells 0.3 /100 WBC (0); Platelet Count 157 K/mcL (140-400); Red Cell Distribution Width 13.1 % (11.5-14.5); Segmented Neutrophils % 58.4 %; White Blood Count 6.9 K/mcL (4.3-11.1)
[2020-12-08] MEDS ORDERED: Vancomycin 1,500 MG/265 ML IV.SOLN IVPB ONE (12:00)
[2020-12-08 12:13] LABS: Bilirubin,Urine Negative (Negative); Blood,Urine Negative (Negative); Clarity,Urine Turbid (Clear); Color,Urine Yellow (Yellow); Glucose,Urine (UA) Normal (Normal); Granular Casts,Urine Few per lpf (None Seen); Hyaline Casts,Urine Few per lpf (None Seen); Ketones,Urine Negative (Negative); Leukocyte Esterase,Urine Negative (Negative); Mucus,Urine Few per lpf (None-Few); Nitrite,Urine Negative (Negative); Protein,Urine Trace mg/dL (Neg-Trace); Specific Gravity,Urine 1.016 (1.010-1.025); Squamous Epithelial Cell,Urine Few per hpf (None-Few); Transitional Epi Cells,Urine Few per hpf (None-Few); Urobilinogen,Urine Normal (Normal); WBC,Urine 0-3 per hpf (0-3)
[2020-12-08] MEDS ORDERED: Naloxone 0.4 MG/ML INJ IVP PRN (14:54)
[2020-12-08] MEDS ORDERED: Azithromycin 500 MG in 0.9 % Sodium Chloride 250 ML IVPB ONE (14:54)
[2020-12-08] MEDS ORDERED: Perflutren Lipid Microsphere 1.3 ML in 0.9 % Sodium Chloride 8.7 ML IVP PRN (14:58)
[2020-12-08] MEDS ORDERED: D5% in Water 1,000 ML IVC PRN (14:59)
[2020-12-08] MEDS ORDERED: *HR* Dextrose 50 % in Water (Vial) 50 ML VIAL IVP PRN (14:59)
[2020-12-08] MEDS ORDERED: Dextrose Gel 15 GM/37.5 ML TUBE PO PRN ×2 (14:59)
[2020-12-08] MEDS ORDERED: Ringers Solution, Lactated 1,000 ML IVC SCH (15:00)
[2020-12-08] MEDS ORDERED: Norepinephrine 4 MG/254 ML IV.SOLN IVC SCH (15:00)
[2020-12-08] MEDS ORDERED: cefTRIAXone 2,000 MG in Water for inj. (sterile) 20 ML IVP SCH (15:00)
[2020-12-08] MEDS ORDERED: *HR* OxyCODONE Immed Rel 15 MG TABLET PO PRN (15:15)
[2020-12-08] MEDS ORDERED: Albuterol 2.5 MG/3 ML NEBULIZER IH PRN (15:21)
[2020-12-08] MEDS: Ipratropium/Albuterol Neb 3 ML IH SCH ×3 (15:47→23:40)
[2020-12-08 16:41] LABS: Thyroid Stimulating Hormone 0.888 mcIU/mL (0.340-5.600)
[2020-12-08] MEDS: *HR* OxyCODONE Immed Rel 5 MG TABLET PO PRN ×2 (16:47→23:49)
[2020-12-08 17:01] LABS: Adenovirus Not Detected (Not Detect); Bordetella Pertussis Not Detected (Not Detect); Chlamydophila pneumoniae Not Detected (Not Detect); Coronavirus 229E Not Detected (Not Detect); Coronavirus HKU1 Not Detected (Not Detect); Coronavirus NL63 Not Detected (Not Detect); Coronavirus OC43 Not Detected (Not Detect); Human Metapneumovirus Not Detected (Not Detect); Human Rhinovirus/Enterovirus Not Detected (Not Detect); Influenza A Subtype 2009 H1 Not Detected (Not Detect); Influenza B Not Detected (Not Detect); Mycoplasma pneumoniae Not Detected (Not Detect); Parainfluenza Virus 1 Not Detected (Not Detect); Parainfluenza Virus 2 DETECTED (Not Detect); Parainfluenza Virus 3 Not Detected (Not Detect); Parainfluenza Virus 4 Not Detected (Not Detect); Respiratory Syncytial Virus Not Detected (Not Detect); SARS-CoV-2 Not Detected (Not Detect)
[2020-12-08] MEDS: Insulin LISPRO 300 UNITS/3 ML VIAL SUBQ SCH ×2 (17:18→23:55)
[2020-12-08] MEDS: Ringers Solution, Lactated 1,000 ML IVC SCH (20:10)
[2020-12-08] MEDS: *HR* Heparin 5,000 UNIT/ML VIAL SQ SCH (22:19)
[2020-12-08] MEDS: Budesonide/Formoterol 80/4.5 1 PUFF INH IH SCH (23:40)
[2020-12-09] MEDS: Ringers Solution, Lactated 1,000 ML IVC SCH (01:58)
[2020-12-09] MEDS: Ipratropium/Albuterol Neb 3 ML IH SCH ×5 (03:32→20:25)
[2020-12-09 03:42] LABS: Hematocrit 33.1 % (35.3-44.9); Hemoglobin 10.4 g/dL (11.5-15.4); Mean Corpuscular HGB Conc 31.4 g/dL (31.6-35.5); Mean Corpuscular Hemoglobin 29.2 pg (28.0-33.3); Mean Platelet Volume 11.4 fL (9.4-12.4); Platelet Count 152 K/mcL (140-400); Red Blood Count 3.56 M/mcL (3.82-4.97); Red Cell Distribution Width 12.7 % (11.5-14.5); White Blood Count 6.1 K/mcL (4.3-11.1)
[2020-12-09 04:07] LABS: Magnesium 1.7 mg/dL (1.6-2.6); Potassium 3.7 mEq/L (3.5-5.1)
[2020-12-09] MEDS: *HR* Heparin 5,000 UNIT/ML VIAL SQ SCH ×3 (07:10→21:22)
[2020-12-09] MEDS: Insulin LISPRO 300 UNITS/3 ML VIAL SUBQ SCH ×3 (07:12→18:23)
[2020-12-09] MEDS: *HR* OxyCODONE Immed Rel 5 MG TABLET PO PRN (08:04)
[2020-12-09] MEDS: Budesonide/Formoterol 80/4.5 1 PUFF INH IH SCH ×2 (08:05→20:26)
[2020-12-09] MEDS ORDERED: *HR* Metoprolol 5 MG/5 ML VIAL IVP ONE (09:21)
[2020-12-09] MEDS ORDERED: amLODIPine 5 MG TABLET PO SCH (09:30)
[2020-12-09] MEDS ORDERED: *HR* OxyCODONE Immed Rel 5 MG TABLET PO PRN ×2 (09:38→16:46)
[2020-12-09] MEDS ORDERED: Azithromycin 250 MG TABLET PO SCH (12:00)
[2020-12-09] MEDS ORDERED: *HR* OxyCODONE Immed Rel 5 MG TABLET PO ONE (12:35)
[2020-12-09] MEDS ORDERED: Naloxone 0.4 MG/ML INJ IVP PRN (16:46)
[2020-12-09] MEDS ORDERED: Albuterol 2.5 MG/3 ML NEBULIZER IH PRN (16:46)
[2020-12-09] MEDS ORDERED: *HR* Dextrose 50 % in Water (Vial) 50 ML VIAL IVP PRN (16:46)
[2020-12-09] MEDS ORDERED: Perflutren Lipid Microsphere 1.3 ML in 0.9 % Sodium Chloride 8.7 ML IVP PRN (16:46)
[2020-12-09] MEDS ORDERED: Dextrose Gel 15 GM/37.5 ML TUBE PO PRN ×2 (16:46)
[2020-12-09] MEDS ORDERED: D5% in Water 1,000 ML IVC PRN (16:46)
[2020-12-10] MEDS: Insulin LISPRO 300 UNITS/3 ML VIAL SUBQ SCH ×4 (00:06→17:00)
[2020-12-10] MEDS: QUEtiapine Fumarate 25 MG TABLET PO SCH ×2 (00:08→21:31)
[2020-12-10] MEDS: Ipratropium/Albuterol Neb 3 ML IH SCH ×7 (00:12→23:40)
[2020-12-10] MEDS: *HR* Heparin 5,000 UNIT/ML VIAL SQ SCH ×3 (05:57→23:13)
[2020-12-10 06:46] LABS: Hemoglobin 12.8 g/dL (11.5-15.4); Mean Corpuscular HGB Conc 33.7 g/dL (31.6-35.5); Mean Corpuscular Hemoglobin 30.5 pg (28.0-33.3); Mean Corpuscular Volume 90.7 fL (83.0-100.0); Mean Platelet Volume 11.2 fL (9.4-12.4); Platelet Count 191 K/mcL (140-400); Red Blood Count 4.19 M/mcL (3.82-4.97); Red Cell Distribution Width 12.8 % (11.5-14.5); White Blood Count 6.4 K/mcL (4.3-11.1)
[2020-12-10 07:12] LABS: BUN/Creatinine Ratio 22 (6-26); Blood Urea Nitrogen 20 mg/dL (8-23); Calcium 9.8 mg/dL (8.6-10.3); Carbon Dioxide 31 mEq/L (23-29); Chloride 99 mEq/L (98-107); Glucose 157 mg/dL (70-105); Magnesium 1.4 mg/dL (1.6-2.6); Osmolality,Calculated 298 (280-300); Potassium 3.3 mEq/L (3.5-5.1); Sodium 141 mEq/L (136-145); eGFR For African Americans > 60 (> 60); eGFR For Non-African Americans 60 (> 60)
[2020-12-10] MEDS: Budesonide/Formoterol 80/4.5 1 PUFF INH IH SCH ×2 (07:51→20:28)
[2020-12-10] MEDS: amLODIPine 5 MG TABLET PO SCH (09:48)
[2020-12-10] MEDS ORDERED: *HR* OxyCODONE Immed Rel 5 MG TABLET PO PRN ×2 (10:14→10:15)
[2020-12-10] MEDS: hydroCHLOROthiazide 25 MG TABLET PO SCH ×2 (11:49→21:32)
[2020-12-10] MEDS: Gabapentin 400 MG CAPSULE PO SCH ×3 (11:49→21:32)
[2020-12-10] MEDS: lisinopriL 10 MG TABLET PO SCH (11:49)
[2020-12-10] MEDS ORDERED: Azithromycin 250 MG TABLET PO SCH (12:00)
[2020-12-10] MEDS: predniSONE 20 MG TABLET PO SCH (12:07)
[2020-12-11] MEDS: Insulin LISPRO 300 UNITS/3 ML VIAL SUBQ SCH ×3 (00:22→10:34)
[2020-12-11 02:12] LABS: Hematocrit 39.7 % (35.3-44.9); Hemoglobin 12.7 g/dL (11.5-15.4); Mean Corpuscular Hemoglobin 29.3 pg (28.0-33.3); Mean Corpuscular Volume 91.7 fL (83.0-100.0); Mean Platelet Volume 11.6 fL (9.4-12.4); Platelet Count 209 K/mcL (140-400); Red Blood Count 4.33 M/mcL (3.82-4.97); Red Cell Distribution Width 12.8 % (11.5-14.5); White Blood Count 9.4 K/mcL (4.3-11.1)
[2020-12-11 02:29] LABS: BUN/Creatinine Ratio 23 (6-26); Blood Urea Nitrogen 20 mg/dL (8-23); Calcium 9.5 mg/dL (8.6-10.3); Carbon Dioxide 30 mEq/L (23-29); Chloride 101 mEq/L (98-107); Glucose 136 mg/dL (70-105); Magnesium 1.8 mg/dL (1.6-2.6); Osmolality,Calculated 297 (280-300); Potassium 3.5 mEq/L (3.5-5.1); Sodium 141 mEq/L (136-145); eGFR For African Americans > 60 (> 60); eGFR For Non-African Americans > 60 (> 60)
[2020-12-11] MEDS: Ipratropium/Albuterol Neb 3 ML IH SCH ×3 (04:00→11:02)
[2020-12-11] MEDS: *HR* Heparin 5,000 UNIT/ML VIAL SQ SCH (05:22)
[2020-12-11] MEDS: amLODIPine 5 MG TABLET PO SCH (07:12)
[2020-12-11] MEDS: Gabapentin 400 MG CAPSULE PO SCH (07:12)
[2020-12-11] MEDS: hydroCHLOROthiazide 25 MG TABLET PO SCH (07:12)
[2020-12-11] MEDS: lisinopriL 10 MG TABLET PO SCH (07:12)
[2020-12-11] MEDS: predniSONE 20 MG TABLET PO SCH (07:13)
[2020-12-11 07:52] VITALS: O2SAT 94
[2020-12-11 10:03] VITALS: BP 156/86; PULSE 80; TEMP 98
[2020-12-11] MEDS: Budesonide/Formoterol 80/4.5 1 PUFF INH IH SCH (11:02)
== END 2020-12-11 11:15 | disposition home health service (06) | DRG 865 ==
LOC: EMEROOARM 09:33 → SUATTDRO 12:25 → ICNU 12:25 → 2NENU 12-10 07:25
PROVIDERS: ADMIT Internal Medicine; ATTEND Internal Medicine

== ENCOUNTER 2021-05-24 15:27 | Inpatient (IN) ==
[~2021-05-24 15:27] MED LIST: cefTRIAXone 1,000 MG in 0.9 % Sodium Chloride Mini Bag 100 ML IVPB SCH
[2021-05-24 16:12] LABS: Hematocrit 38.5 % (35.3-44.9); Hemoglobin 12.7 g/dL (11.5-15.4); Mean Corpuscular Hemoglobin 30.3 pg (28.0-33.3); Mean Corpuscular Volume 91.9 fL (83.0-100.0); Mean Platelet Volume 11.1 fL (9.4-12.4); Platelet Count 211 K/mcL (140-400); Red Blood Count 4.19 M/mcL (3.82-4.97); Red Cell Distribution Width 13.4 % (11.5-14.5); White Blood Count 21.6 K/mcL (4.3-11.1)
[2021-05-24 16:35] LABS: Potassium 3.1 mEq/L (3.5-5.1)
[2021-05-24 16:44] LABS: Bacteria,Urine Few per hpf (None-Few); Bilirubin,Urine Negative (Negative); Blood,Urine Moderate (Negative); Calcium Oxalate Crystals,Urine Present per hpf; Clarity,Urine Turbid (Clear); Color,Urine Yellow (Yellow); Glucose,Urine (UA) Normal (Normal); Hyaline Casts,Urine Few per lpf (None Seen); Ketones,Urine Trace mg/dL (Negative); Leukocyte Esterase,Urine Trace (Negative); Mucus,Urine Few per lpf (None-Few); Nitrite,Urine Negative (Negative); PH,Urine 5.5 pH Units (5.0-8.0); Protein,Urine 100 mg/dL (Neg-Trace); RBC,Urine 0-3 per hpf (0-3); Squamous Epithelial Cell,Urine Few per hpf (None-Few)
[2021-05-24 16:47] LABS: Troponin I 0.06 ng/mL (< 0.04)
[2021-05-24 17:10] LABS: Influenza A PCR Negative (Negative); Influenza B PCR Negative (Negative); Resp. Syncytial Virus PCR Negative (Negative)
[2021-05-24 17:11] LABS: SARS-CoV-2 by PCR (In House) Negative (Negative)
[2021-05-24] MEDS ORDERED: 0.9 % Sodium Chloride 1,000 ML IVC ONE (18:05)
[2021-05-24] MEDS ORDERED: cefTRIAXone 1,000 MG in 0.9 % Sodium Chloride Mini Bag 100 ML IVPB ONE (19:39)
[2021-05-24] MEDS ORDERED: Azithromycin 500 MG in D5% in Water 250 ML IVPB ONE (19:39)
[2021-05-24] MEDS ORDERED: Potassium Chloride Elixir 20 MEQ/15 ML UDC PO ONE (20:05)
[2021-05-24] MEDS ORDERED: Naloxone 0.4 MG/ML INJ IVP PRN (21:49)
[2021-05-24] MEDS ORDERED: Ondansetron 4 MG/2 ML VIAL IVP PRN (21:49)
[2021-05-24] MEDS ORDERED: 0.9 % Sodium Chloride 1,000 ML IVC SCH (22:00)
[2021-05-24] MEDS ORDERED: Dextrose Gel 15 GM/37.5 ML TUBE PO PRN ×2 (22:20)
[2021-05-24] MEDS ORDERED: *HR* Dextrose 50 % in Water (Syg) 50 ML SYRINGE IVP PRN (22:20)
[2021-05-24] MEDS ORDERED: D5% in Water 1,000 ML IVC PRN (22:20)
[2021-05-24] MEDS: *HR* Heparin 5,000 UNIT/ML VIAL SQ SCH (22:54)
[2021-05-24 23:08] LABS: Troponin I < 0.03 ng/mL (< 0.04)
[2021-05-24 23:29] LABS: Magnesium 1.5 mg/dL (1.6-2.6)
[2021-05-25] MEDS ORDERED: Gabapentin 400 MG CAPSULE PO ONE (00:20)
[2021-05-25] MEDS: *HR* FentaNYL PATCH 75 MCG PATCH TD SCH (00:27)
[2021-05-25] MEDS ORDERED: Albuterol 2.5 MG/3 ML NEBULIZER IH PRN (00:57)
[2021-05-25] MEDS: QUEtiapine Fumarate 25 MG TABLET PO SCH ×2 (01:16→20:28)
[2021-05-25 03:12] LABS: Hematocrit 35.3 % (35.3-44.9); Hemoglobin 11.8 g/dL (11.5-15.4); Mean Corpuscular HGB Conc 33.4 g/dL (31.6-35.5); Mean Corpuscular Hemoglobin 30.6 pg (28.0-33.3); Mean Corpuscular Volume 91.7 fL (83.0-100.0); Mean Platelet Volume 11.8 fL (9.4-12.4); Platelet Count 148 K/mcL (140-400); Red Blood Count 3.85 M/mcL (3.82-4.97); Red Cell Distribution Width 13.4 % (11.5-14.5); White Blood Count 15.9 K/mcL (4.3-11.1)
[2021-05-25 03:26] LABS: BUN/Creatinine Ratio 23 (6-26); Blood Urea Nitrogen 20 mg/dL (8-23); Calcium 8.3 mg/dL (8.6-10.3); Carbon Dioxide 29 mEq/L (23-29); Chloride 94 mEq/L (98-107); Glucose 137 mg/dL (70-105); Osmolality,Calculated 287 (280-300); Sodium 136 mEq/L (136-145); eGFR For African Americans > 60 (> 60); eGFR For Non-African Americans > 60 (> 60)
[2021-05-25 03:30] LABS: Troponin I 0.05 ng/mL (< 0.04)
[2021-05-25] MEDS: *HR* Heparin 5,000 UNIT/ML VIAL SQ SCH ×3 (05:31→20:29)
[2021-05-25] MEDS: Acetaminophen 325 MG TABLET PO PRN ×2 (08:09→20:33)
[2021-05-25] MEDS: Insulin LISPRO 300 UNITS/3 ML VIAL SUBQ SCH ×3 (08:09→17:26)
[2021-05-25] MEDS: amLODIPine 5 MG TABLET PO SCH (08:09)
[2021-05-25] MEDS: Cyanocobalamin (B-12) 1,000 MCG TABLET PO SCH (08:09)
[2021-05-25] MEDS: cefTRIAXone 1,000 MG in 0.9 % Sodium Chloride Mini Bag 100 ML IVPB SCH (08:10)
[2021-05-25] MEDS: Azithromycin 500 MG in 0.9 % Sodium Chloride 250 ML IVPB SCH (09:21)
[2021-05-25] MEDS: tiZANidine 4 MG TABLET PO SCH (20:28)
[2021-05-26] MEDS: *HR* Heparin 5,000 UNIT/ML VIAL SQ SCH ×3 (05:55→19:33)
[2021-05-26 06:32] LABS: Hematocrit 34.5 % (35.3-44.9); Hemoglobin 11.2 g/dL (11.5-15.4); Mean Corpuscular HGB Conc 32.5 g/dL (31.6-35.5); Mean Corpuscular Hemoglobin 29.9 pg (28.0-33.3); Mean Platelet Volume 11.5 fL (9.4-12.4); Platelet Count 171 K/mcL (140-400); Red Blood Count 3.75 M/mcL (3.82-4.97); Red Cell Distribution Width 13.4 % (11.5-14.5); White Blood Count 13.6 K/mcL (4.3-11.1)
[2021-05-26 06:37] LABS: BUN/Creatinine Ratio 24 (6-26); Blood Urea Nitrogen 19 mg/dL (8-23); Calcium 8.6 mg/dL (8.6-10.3); Carbon Dioxide 29 mEq/L (23-29); Chloride 97 mEq/L (98-107); Glucose 139 mg/dL (70-105); Magnesium 1.8 mg/dL (1.6-2.6); Osmolality,Calculated 285 (280-300); Potassium 3.6 mEq/L (3.5-5.1); Sodium 135 mEq/L (136-145); eGFR For African Americans > 60 (> 60); eGFR For Non-African Americans > 60 (> 60)
[2021-05-26] MEDS: Insulin LISPRO 300 UNITS/3 ML VIAL SUBQ SCH ×3 (08:07→17:19)
[2021-05-26] MEDS: amLODIPine 5 MG TABLET PO SCH (08:07)
[2021-05-26] MEDS: Cyanocobalamin (B-12) 1,000 MCG TABLET PO SCH (08:08)
[2021-05-26] MEDS: cefTRIAXone 1,000 MG in 0.9 % Sodium Chloride Mini Bag 100 ML IVPB SCH (10:19)
[2021-05-26] MEDS ORDERED: *HR* OxyCODONE Immed Rel 5 MG TABLET PO PRN (12:13)
[2021-05-26] MEDS ORDERED: Albuterol 2.5 MG/3 ML NEBULIZER IH PRN (12:14)
[2021-05-26] MEDS: Azithromycin 500 MG in 0.9 % Sodium Chloride 250 ML IVPB SCH (12:28)
[2021-05-26] MEDS ORDERED: Benzonatate 100 MG CAPSULE PO PRN (12:37)
[2021-05-26] MEDS: Gabapentin 300 MG CAPSULE PO SCH ×2 (17:42→19:30)
[2021-05-26] MEDS: tiZANidine 4 MG TABLET PO SCH (19:30)
[2021-05-26] MEDS: Acetaminophen 325 MG TABLET PO PRN (19:30)
[2021-05-26] MEDS: QUEtiapine Fumarate 25 MG TABLET PO SCH (19:31)
[2021-05-26] MEDS: Budesonide/Formoterol 160/4.5 1 PUFF INH IH SCH (20:02)
[2021-05-27] MEDS: *HR* Heparin 5,000 UNIT/ML VIAL SQ SCH ×3 (05:27→20:12)
[2021-05-27] MEDS: Budesonide/Formoterol 160/4.5 1 PUFF INH IH SCH ×2 (07:47→20:35)
[2021-05-27] MEDS: Tiotropium 10 INH DOSE IH SCH (07:49)
[2021-05-27] MEDS: Insulin LISPRO 300 UNITS/3 ML VIAL SUBQ SCH ×3 (08:24→16:22)
[2021-05-27] MEDS: Gabapentin 300 MG CAPSULE PO SCH ×3 (08:24→20:12)
[2021-05-27] MEDS: amLODIPine 5 MG TABLET PO SCH (08:26)
[2021-05-27] MEDS: Cyanocobalamin (B-12) 1,000 MCG TABLET PO SCH (08:26)
[2021-05-27] MEDS: cefTRIAXone 1,000 MG in 0.9 % Sodium Chloride Mini Bag 100 ML IVPB SCH (08:28)
[2021-05-27] MEDS ORDERED: NON-FORMULARY MEDICATION 1 EACH EACH (Fluticasone/Umeclidin/Vilanter [Trelegy Ellipta 100- PO SCH (09:00)
[2021-05-27 11:10] LABS: Hematocrit 33.5 % (35.3-44.9); Hemoglobin 10.9 g/dL (11.5-15.4); Mean Corpuscular HGB Conc 32.5 g/dL (31.6-35.5); Mean Corpuscular Hemoglobin 30.3 pg (28.0-33.3); Mean Corpuscular Volume 93.1 fL (83.0-100.0); Mean Platelet Volume 10.6 fL (9.4-12.4); Platelet Count 253 K/mcL (140-400); Red Cell Distribution Width 13.2 % (11.5-14.5)
[2021-05-27 11:32] LABS: BUN/Creatinine Ratio 19 (6-26); Blood Urea Nitrogen 16 mg/dL (8-23); Calcium 9.3 mg/dL (8.6-10.3); Carbon Dioxide 32 mEq/L (23-29); Chloride 94 mEq/L (98-107); Glucose 166 mg/dL (70-105); Osmolality,Calculated 283 (280-300); Potassium 3.5 mEq/L (3.5-5.1); Sodium 134 mEq/L (136-145); Troponin I 0.03 ng/mL (< 0.04); eGFR For African Americans > 60 (> 60); eGFR For Non-African Americans > 60 (> 60)
[2021-05-27] MEDS: Azithromycin 500 MG in 0.9 % Sodium Chloride 250 ML IVPB SCH (14:02)
[2021-05-27] MEDS: predniSONE 20 MG TABLET PO SCH (14:09)
[2021-05-27] MEDS ORDERED: Furosemide 20 MG/2 ML VIAL IVP ONE (15:11)
[2021-05-27] MEDS: QUEtiapine Fumarate 25 MG TABLET PO SCH (20:12)
[2021-05-27] MEDS: tiZANidine 4 MG TABLET PO SCH (20:12)
[2021-05-27 20:35] LABS: Adenovirus Not Detected (Not Detect); Coronavirus 229E Not Detected (Not Detect); Coronavirus HKU1 Not Detected (Not Detect); Coronavirus NL63 Not Detected (Not Detect); Coronavirus OC43 Not Detected (Not Detect)
[2021-05-27 20:36] LABS: Bordetella Pertussis Not Detected (Not Detect); Chlamydophila pneumoniae Not Detected (Not Detect); Human Metapneumovirus Not Detected (Not Detect); Human Rhinovirus/Enterovirus Not Detected (Not Detect); Influenza A Subtype 2009 H1 Not Detected (Not Detect); Influenza B Not Detected (Not Detect); Mycoplasma pneumoniae Not Detected (Not Detect); Parainfluenza Virus 1 Not Detected (Not Detect); Parainfluenza Virus 2 Not Detected (Not Detect); Parainfluenza Virus 3 Not Detected (Not Detect); Parainfluenza Virus 4 Not Detected (Not Detect); Respiratory Syncytial Virus Not Detected (Not Detect); SARS-CoV-2 Not Detected (Not Detect)
[2021-05-28] MEDS: *HR* FentaNYL PATCH 75 MCG PATCH TD SCH (01:13)
[2021-05-28] MEDS: *HR* Heparin 5,000 UNIT/ML VIAL SQ SCH ×3 (05:25→20:39)
[2021-05-28] MEDS: predniSONE 20 MG TABLET PO SCH (07:37)
[2021-05-28] MEDS: Cyanocobalamin (B-12) 1,000 MCG TABLET PO SCH (07:38)
[2021-05-28] MEDS: amLODIPine 5 MG TABLET PO SCH (07:38)
[2021-05-28] MEDS: Gabapentin 300 MG CAPSULE PO SCH ×3 (07:38→20:38)
[2021-05-28] MEDS: Insulin LISPRO 300 UNITS/3 ML VIAL SUBQ SCH ×3 (07:39→16:50)
[2021-05-28] MEDS: Tiotropium 10 INH DOSE IH SCH (09:01)
[2021-05-28] MEDS: Budesonide/Formoterol 160/4.5 1 PUFF INH IH SCH ×2 (09:01→20:42)
[2021-05-28] MEDS: cefTRIAXone 1,000 MG in 0.9 % Sodium Chloride Mini Bag 100 ML IVPB SCH (10:25)
[2021-05-28] MEDS: Azithromycin 500 MG in 0.9 % Sodium Chloride 250 ML IVPB SCH (10:52)
[2021-05-28 11:52] LABS: Hematocrit 34.8 % (35.3-44.9); Hemoglobin 11.4 g/dL (11.5-15.4); Mean Corpuscular HGB Conc 32.8 g/dL (31.6-35.5); Mean Corpuscular Hemoglobin 30.3 pg (28.0-33.3); Mean Corpuscular Volume 92.6 fL (83.0-100.0); Mean Platelet Volume 10.7 fL (9.4-12.4); Platelet Count 296 K/mcL (140-400); Red Blood Count 3.76 M/mcL (3.82-4.97); Red Cell Distribution Width 13.1 % (11.5-14.5); White Blood Count 12.4 K/mcL (4.3-11.1)
[2021-05-28 12:10] LABS: BUN/Creatinine Ratio 28 (6-26); Blood Urea Nitrogen 23 mg/dL (8-23); Calcium 9.8 mg/dL (8.6-10.3); Carbon Dioxide 33 mEq/L (23-29); Chloride 95 mEq/L (98-107); Glucose 145 mg/dL (70-105); Magnesium 1.6 mg/dL (1.6-2.6); Osmolality,Calculated 296 (280-300); Potassium 3.8 mEq/L (3.5-5.1); Sodium 140 mEq/L (136-145); eGFR For African Americans > 60 (> 60); eGFR For Non-African Americans > 60 (> 60)
[2021-05-28] MEDS: QUEtiapine Fumarate 25 MG TABLET PO SCH (20:37)
[2021-05-28] MEDS: tiZANidine 4 MG TABLET PO SCH (20:38)
[2021-05-28] MEDS ORDERED: Insulin DETEMIR 100 UNIT/ML X5UNITS SUBQ SCH (21:00)
[2021-05-29 01:14] LABS: Hematocrit 32.8 % (35.3-44.9); Hemoglobin 10.3 g/dL (11.5-15.4); Mean Corpuscular HGB Conc 31.4 g/dL (31.6-35.5); Mean Corpuscular Hemoglobin 29.5 pg (28.0-33.3); Platelet Count 285 K/mcL (140-400); Red Blood Count 3.49 M/mcL (3.82-4.97); Red Cell Distribution Width 13.2 % (11.5-14.5); White Blood Count 11.2 K/mcL (4.3-11.1)
[2021-05-29 01:33] LABS: BUN/Creatinine Ratio 39 (6-26); Blood Urea Nitrogen 30 mg/dL (8-23); Calcium 9.4 mg/dL (8.6-10.3); Carbon Dioxide 30 mEq/L (23-29); Chloride 98 mEq/L (98-107); Glucose 235 mg/dL (70-105); Osmolality,Calculated 300 (280-300); Potassium 3.9 mEq/L (3.5-5.1); Sodium 138 mEq/L (136-145); eGFR For African Americans > 60 (> 60); eGFR For Non-African Americans > 60 (> 60)
[2021-05-29] MEDS: *HR* Heparin 5,000 UNIT/ML VIAL SQ SCH ×2 (06:40→12:34)
[2021-05-29] MEDS: Insulin LISPRO 300 UNITS/3 ML VIAL SUBQ SCH ×2 (07:06→11:59)
[2021-05-29 08:04] VITALS: BP 141/67; PULSE 75; TEMP 97.5
[2021-05-29] MEDS: Tiotropium 10 INH DOSE IH SCH (08:15)
[2021-05-29] MEDS: Budesonide/Formoterol 160/4.5 1 PUFF INH IH SCH (08:15)
[2021-05-29] MEDS: predniSONE 20 MG TABLET PO SCH (08:23)
[2021-05-29] MEDS: Cyanocobalamin (B-12) 1,000 MCG TABLET PO SCH (08:24)
[2021-05-29] MEDS: Gabapentin 300 MG CAPSULE PO SCH (08:24)
[2021-05-29] MEDS: amLODIPine 5 MG TABLET PO SCH (08:24)
[2021-05-29] MEDS: cefTRIAXone 1,000 MG in 0.9 % Sodium Chloride Mini Bag 100 ML IVPB SCH (08:24)
[2021-05-29] MEDS: Acetaminophen 325 MG TABLET PO PRN (08:35)
[2021-05-29 11:52] VITALS: O2SAT 96
== END 2021-05-29 14:30 | disposition home health service (06) | DRG 871 ==
LOC: 2ANU 15:27 → EMEROOARM 15:27 → SUATTDRO 20:21 → 2ANU 21:53
PROVIDERS: ADMIT Student in an Organized Health Care Education/Training Program; ATTEND Internal Medicine

== ENCOUNTER 2021-06-08 11:14 | Observation (INO) ==
[2021-06-08 12:50] LABS: Basophils # 0.1 K/mcL (0.0-0.2); Basophils % 0.9 %; Eosinophils # 0.2 K/mcL (0.0-0.6); Eosinophils % 1.6 %; Hematocrit 39.5 % (35.3-44.9); Hemoglobin 12.7 g/dL (11.5-15.4); Immature Granulocytes % 0.6 % (0-4); Lymphocytes # 1.6 K/mcL (0.6-4.6); Lymphocytes % 13.5 %; Mean Corpuscular HGB Conc 32.2 g/dL (31.6-35.5); Mean Corpuscular Hemoglobin 31.1 pg (28.0-33.3); Mean Corpuscular Volume 96.6 fL (83.0-100.0); Mean Platelet Volume 10.6 fL (9.4-12.4); Monocytes # 1.6 K/mcL (0.0-1.3); Monocytes % 13.5 %; Neutrophils # 8.1 K/mcL (1.6-8.9); Platelet Count 207 K/mcL (140-400); Red Blood Count 4.09 M/mcL (3.82-4.97); Segmented Neutrophils % 69.9 %; White Blood Count 11.6 K/mcL (4.3-11.1)
[2021-06-08 14:13] LABS: BUN/Creatinine Ratio 22 (6-26); Blood Urea Nitrogen 31 mg/dL (8-23); Calcium 9.1 mg/dL (8.6-10.3); Carbon Dioxide 33 mEq/L (23-29); Chloride 92 mEq/L (98-107); Glucose 99 mg/dL (70-105); Osmolality,Calculated 283 (280-300); Potassium 3.5 mEq/L (3.5-5.1); Sodium 133 mEq/L (136-145); Troponin I < 0.03 ng/mL (< 0.04); eGFR For African Americans 43 (> 60); eGFR For Non-African Americans 35 (> 60)
[2021-06-08 15:12] LABS: Influenza A PCR Negative (Negative); Influenza B PCR Negative (Negative); Resp. Syncytial Virus PCR Negative (Negative); SARS-CoV-2 by PCR (In House) Negative (Negative)
[2021-06-08] MEDS ORDERED: 0.9 % Sodium Chloride 500 ML IVC ONE (15:46)
[2021-06-08] MEDS ORDERED: Mag Hydrox/Al Hydrox/Simeth 30 ML UDC PO PRN (16:24)
[2021-06-08] MEDS ORDERED: Ondansetron ODT 4 MG TAB.RAPDIS SL PRN (16:24)
[2021-06-08] MEDS ORDERED: Melatonin 3 MG TABLET PO PRN (16:24)
[2021-06-08] MEDS ORDERED: Naloxone 0.4 MG/ML INJ IVP PRN (16:24)
[2021-06-08] MEDS ORDERED: Morphine Sulfate 2 MG/ML SYRINGE IVP PRN (16:59)
[2021-06-08] MEDS ORDERED: Nitroglycerin 0.4 MG TAB.SUBL SL PRN (16:59)
[2021-06-08] MEDS ORDERED: Aspirin 325 MG TABLET PO ONE (16:59)
[2021-06-08 17:42] LABS: Bilirubin,Urine Negative (Negative); Blood,Urine Negative (Negative); Clarity,Urine Clear (Clear); Color,Urine Yellow (Yellow); Glucose,Urine (UA) Normal (Normal); Ketones,Urine Negative (Negative); Leukocyte Esterase,Urine Negative (Negative); Nitrite,Urine Negative (Negative); PH,Urine 5.5 pH Units (5.0-8.0); Protein,Urine Trace mg/dL (Neg-Trace); Specific Gravity,Urine 1.022 (1.010-1.025)
[2021-06-08] MEDS: 0.9 % Sodium Chloride 1,000 ML IVC SCH (21:05)
[2021-06-08] MEDS ORDERED: *HR* OxyCODONE Immed Rel 15 MG TABLET PO ONE (23:09)
[2021-06-08] MEDS ORDERED: QUEtiapine Fumarate 25 MG TABLET PO SCH (23:30)
[2021-06-08] MEDS: Gabapentin 400 MG CAPSULE PO SCH (23:34)
[2021-06-09] MEDS: 0.9 % Sodium Chloride 1,000 ML IVC SCH (02:06)
[2021-06-09 02:26] LABS: Hematocrit 33.4 % (35.3-44.9); Hemoglobin 10.9 g/dL (11.5-15.4); Mean Corpuscular HGB Conc 32.6 g/dL (31.6-35.5); Mean Corpuscular Hemoglobin 30.7 pg (28.0-33.3); Mean Corpuscular Volume 94.1 fL (83.0-100.0); Mean Platelet Volume 10.6 fL (9.4-12.4); Platelet Count 204 K/mcL (140-400); Red Blood Count 3.55 M/mcL (3.82-4.97); Red Cell Distribution Width 13.9 % (11.5-14.5); White Blood Count 7.6 K/mcL (4.3-11.1)
[2021-06-09 02:34] LABS: Prothrombin Time 11.5 Seconds (9.4-12.1)
[2021-06-09 02:51] LABS: Calcium 8.4 mg/dL (8.6-10.3); Potassium 3.2 mEq/L (3.5-5.1)
[2021-06-09] MEDS ORDERED: Regadenoson 0.4 MG/5 ML SYRINGE IVP ONE (06:14)
[2021-06-09] MEDS ORDERED: amLODIPine 5 MG TABLET PO SCH (09:00)
[2021-06-09] MEDS ORDERED: hydroCHLOROthiazide 25 MG TABLET PO SCH (09:00)
[2021-06-09] MEDS ORDERED: Cyanocobalamin (B-12) 1,000 MCG TABLET PO SCH (09:00)
[2021-06-09] MEDS ORDERED: lisinopriL 10 MG TABLET PO SCH (09:00)
[2021-06-09 09:12] VITALS: TEMP 98.3
[2021-06-09] MEDS: Gabapentin 400 MG CAPSULE PO SCH ×2 (09:14→15:58)
[2021-06-09 12:05] VITALS: BP 120/60; PULSE 98; O2SAT 95
== END 2021-06-09 17:25 | disposition home health service (06) ==
LOC: 3BNU 11:14 → EMEROOARM 11:14 → SUATTDRO 21:35 → 3BNU 22:10
PROVIDERS: ADMIT Family Medicine; ATTEND Family Medicine

== ENCOUNTER 2021-06-11 12:33 | Observation (INO) ==
[2021-06-11] MEDS ORDERED: Ipratropium/Albuterol Neb 3 ML IH ONE (12:43)
[2021-06-11] MEDS ORDERED: 0.9 % Sodium Chloride 1,000 ML IVC ONE ×2 (12:56→16:17)
[2021-06-11 13:08] LABS: Basophils % 0.4 %; Eosinophils # 0.2 K/mcL (0.0-0.6); Eosinophils % 2.3 %; Hemoglobin 10.2 g/dL (11.5-15.4); Immature Granulocytes % 0.3 % (0-4); Lymphocytes # 1.6 K/mcL (0.6-4.6); Lymphocytes % 16.3 %; Mean Corpuscular HGB Conc 30.9 g/dL (31.6-35.5); Mean Corpuscular Volume 97.1 fL (83.0-100.0); Mean Platelet Volume 10.9 fL (9.4-12.4); Monocytes # 1.4 K/mcL (0.0-1.3); Monocytes % 14.6 %; Neutrophils # 6.3 K/mcL (1.6-8.9); Platelet Count 225 K/mcL (140-400); Red Cell Distribution Width 14.2 % (11.5-14.5); Segmented Neutrophils % 66.1 %; White Blood Count 9.6 K/mcL (4.3-11.1)
[2021-06-11 13:24] LABS: Alanine Aminotransferase 20 Units/L (7-52); Albumin 3.4 g/dL (3.5-5.7); Albumin/Globulin Ratio 1.3 (1.1-2.2); Alkaline Phosphatase 49 Units/L (34-104); Aspartate Amino Transferase 16 Units/L (13-39); BUN/Creatinine Ratio 16 (6-26); Bilirubin,Total 0.5 mg/dL (0.3-1.0); Blood Urea Nitrogen 30 mg/dL (8-23); Calcium 8.8 mg/dL (8.6-10.3); Carbon Dioxide 33 mEq/L (23-29); Chloride 94 mEq/L (98-107); Globulin 2.7 g/dL (2.4-3.5); Glucose 149 mg/dL (70-105); Lipase 20 Units/L (11-82); Osmolality,Calculated 287 (280-300); Potassium 3.6 mEq/L (3.5-5.1); Sodium 134 mEq/L (136-145); Total Protein 6.1 g/dL (6.4-8.9); Troponin I < 0.03 ng/mL (< 0.04); eGFR For African Americans 32 (> 60); eGFR For Non-African Americans 27 (> 60)
[2021-06-11 13:28] LABS: Bilirubin,Urine Negative (Negative); Blood,Urine Large (Negative); Clarity,Urine Turbid (Clear); Color,Urine Yellow (Yellow); Glucose,Urine (UA) Normal (Normal); Hyaline Casts,Urine Many per lpf (None Seen); Ketones,Urine Negative (Negative); Leukocyte Esterase,Urine Small (Negative); Mucus,Urine Moderate per lpf (None-Few); Nitrite,Urine Negative (Negative); PH,Urine 5.5 pH Units (5.0-8.0); Protein,Urine >=300 mg/dL (Neg-Trace); RBC,Urine TNTC per hpf (0-3); Renal Epithelial Cells,Urine Few per hpf (None-Few); Specific Gravity,Urine 1.027 (1.010-1.025); Squamous Epithelial Cell,Urine Few per hpf (None-Few); Transitional Epi Cells,Urine Few per hpf (None-Few); WBC,Urine 50-100 per hpf (0-3)
[2021-06-11] MEDS ORDERED: cefTRIAXone 1,000 MG in 0.9 % Sodium Chloride Mini Bag 100 ML IVPB ONE (13:39)
[2021-06-11 13:52] LABS: Influenza A PCR Negative (Negative); Influenza B PCR Negative (Negative); Resp. Syncytial Virus PCR Negative (Negative)
[2021-06-11 14:02] LABS: SARS-CoV-2 by PCR (In House) Negative (Negative)
[2021-06-11] MEDS ORDERED: Melatonin 3 MG TABLET PO PRN (15:40)
[2021-06-11] MEDS ORDERED: Ondansetron ODT 4 MG TAB.RAPDIS SL PRN (15:40)
[2021-06-11] MEDS ORDERED: Naloxone 0.4 MG/ML INJ IVP PRN (15:40)
[2021-06-11] MEDS ORDERED: Mag Hydrox/Al Hydrox/Simeth 30 ML UDC PO PRN (15:40)
[2021-06-11 16:42] LABS: Magnesium 1.6 mg/dL (1.6-2.6)
[2021-06-11] MEDS ORDERED: DAPTOmycin 450 MG in 0.9 % Sodium Chloride 100 ML IVPB SCH (19:00)
[2021-06-11] MEDS: 0.9 % Sodium Chloride 1,000 ML IVC SCH (19:36)
[2021-06-11] MEDS: QUEtiapine Fumarate 25 MG TABLET PO SCH (20:16)
[2021-06-11] MEDS: tiZANidine 4 MG TABLET PO SCH (20:17)
[2021-06-11] MEDS: *HR* OxyCODONE Immed Rel 5 MG TABLET PO PRN (20:18)
[2021-06-11] MEDS: Budesonide/Formoterol 160/4.5 1 PUFF INH IH SCH (20:27)
[2021-06-12] MEDS: 0.9 % Sodium Chloride 1,000 ML IVC SCH (03:45)
[2021-06-12 05:30] LABS: Basophils % 0.4 %; Hematocrit 35.5 % (35.3-44.9); Immature Granulocytes % 0.9 % (0-4); Lymphocytes # 0.7 K/mcL (0.6-4.6); Lymphocytes % 12.2 %; Mean Corpuscular Hemoglobin 29.3 pg (28.0-33.3); Mean Corpuscular Volume 94.7 fL (83.0-100.0); Mean Platelet Volume 11.2 fL (9.4-12.4); Monocytes # 0.3 K/mcL (0.0-1.3); Monocytes % 5.1 %; Neutrophils # 4.4 K/mcL (1.6-8.9); Platelet Count 195 K/mcL (140-400); Red Blood Count 3.75 M/mcL (3.82-4.97); Red Cell Distribution Width 13.2 % (11.5-14.5); Segmented Neutrophils % 81.4 %; White Blood Count 5.3 K/mcL (4.3-11.1)
[2021-06-12 05:52] LABS: Alanine Aminotransferase 21 Units/L (7-52); Albumin 3.4 g/dL (3.5-5.7); Albumin/Globulin Ratio 1.3 (1.1-2.2); Alkaline Phosphatase 52 Units/L (34-104); Aspartate Amino Transferase 16 Units/L (13-39); BUN/Creatinine Ratio 25 (6-26); Bilirubin,Total 0.3 mg/dL (0.3-1.0); Blood Urea Nitrogen 24 mg/dL (8-23); Calcium 8.6 mg/dL (8.6-10.3); Carbon Dioxide 30 mEq/L (23-29); Chloride 100 mEq/L (98-107); Globulin 2.7 g/dL (2.4-3.5); Glucose 240 mg/dL (70-105); Osmolality,Calculated 296 (280-300); Potassium 3.7 mEq/L (3.5-5.1); Sodium 137 mEq/L (136-145); Total Protein 6.1 g/dL (6.4-8.9); eGFR For African Americans > 60 (> 60); eGFR For Non-African Americans 56 (> 60)
[2021-06-12] MEDS ORDERED: Tiotropium 10 INH DOSE IH ONE (07:38)
[2021-06-12] MEDS: Budesonide/Formoterol 160/4.5 1 PUFF INH IH SCH ×2 (07:40→21:00)
[2021-06-12] MEDS: Tiotropium 10 INH DOSE IH SCH (07:41)
[2021-06-12] MEDS ORDERED: NON-FORMULARY MEDICATION 1 EACH EACH (Fluticasone/Umeclidin/Vilanter [Trelegy Ellipta 100- PO SCH (09:00)
[2021-06-12] MEDS: Cyanocobalamin (B-12) 1,000 MCG TABLET PO SCH (09:04)
[2021-06-12 12:02] LABS: Creatine Kinase 64 Units/L (30-223)
[2021-06-12] MEDS ORDERED: cefTRIAXone 1,000 MG in 0.9 % Sodium Chloride Mini Bag 100 ML IVPB SCH (13:00)
[2021-06-12] MEDS: Albuterol 2.5 MG/3 ML NEBULIZER IH PRN ×2 (15:15→21:45)
[2021-06-12] MEDS ORDERED: Vancomycin 1,750 MG/517.5 ML IV.SOLN IVPB SCH (20:00)
[2021-06-12] MEDS: tiZANidine 4 MG TABLET PO SCH (21:12)
[2021-06-12] MEDS: QUEtiapine Fumarate 25 MG TABLET PO SCH (21:12)
[2021-06-12] MEDS: *HR* OxyCODONE Immed Rel 5 MG TABLET PO PRN (21:13)
[2021-06-13 02:30] LABS: Hematocrit 29.4 % (35.3-44.9); Hemoglobin 9.5 g/dL (11.5-15.4); Mean Corpuscular HGB Conc 32.3 g/dL (31.6-35.5); Mean Corpuscular Hemoglobin 30.9 pg (28.0-33.3); Mean Corpuscular Volume 95.8 fL (83.0-100.0); Mean Platelet Volume 11.2 fL (9.4-12.4); Platelet Count 193 K/mcL (140-400); Red Blood Count 3.07 M/mcL (3.82-4.97); Red Cell Distribution Width 13.2 % (11.5-14.5); White Blood Count 6.7 K/mcL (4.3-11.1)
[2021-06-13 02:49] LABS: BUN/Creatinine Ratio 33 (6-26); Blood Urea Nitrogen 28 mg/dL (8-23); Calcium 8.5 mg/dL (8.6-10.3); Carbon Dioxide 29 mEq/L (23-29); Chloride 104 mEq/L (98-107); Glucose 207 mg/dL (70-105); Osmolality,Calculated 302 (280-300); Potassium 3.6 mEq/L (3.5-5.1); Sodium 140 mEq/L (136-145); eGFR For African Americans > 60 (> 60); eGFR For Non-African Americans > 60 (> 60)
[2021-06-13] MEDS: *HR* OxyCODONE Immed Rel 5 MG TABLET PO PRN (06:25)
[2021-06-13] MEDS: Cyanocobalamin (B-12) 1,000 MCG TABLET PO SCH (08:23)
[2021-06-13] MEDS: Tiotropium 10 INH DOSE IH SCH (10:15)
[2021-06-13] MEDS: Budesonide/Formoterol 160/4.5 1 PUFF INH IH SCH (10:17)
[2021-06-13 12:43] VITALS: BP 130/65; PULSE 83; TEMP 97.9; O2SAT 94
[2021-06-14] MEDS ORDERED: *HR* FentaNYL PATCH 75 MCG PATCH TD SCH (09:00)
== END 2021-06-13 14:30 | disposition home health service (06) ==
LOC: 3ANU 12:33 → EMEROOARM 12:33 → SUATTDRO 15:15 → 3ANU 16:51
PROVIDERS: ADMIT Family Medicine; ATTEND Family Medicine

== ENCOUNTER 2022-02-03 12:33 | Observation (INO) ==
[2022-02-03] MEDS: Aspirin 81 MG TAB.CHEW PO ONE ×2 (13:38→14:50)
[2022-02-03 13:40] LABS: Basophils % 0.4 %; Eosinophils # 0.3 K/mcL (0.0-0.6); Eosinophils % 3.6 %; Hemoglobin 12.7 g/dL (11.5-15.4); Immature Granulocytes % 0.3 % (0-4); Lymphocytes # 1.6 K/mcL (0.6-4.6); Lymphocytes % 19.4 %; Mean Corpuscular HGB Conc 31.8 g/dL (31.6-35.5); Mean Corpuscular Hemoglobin 30.1 pg (28.0-33.3); Mean Corpuscular Volume 94.8 fL (83.0-100.0); Mean Platelet Volume 11.4 fL (9.4-12.4); Monocytes # 0.9 K/mcL (0.0-1.3); Monocytes % 11.2 %; Neutrophils # 5.2 K/mcL (1.6-8.9); Platelet Count 171 K/mcL (140-400); Red Blood Count 4.22 M/mcL (3.82-4.97); Red Cell Distribution Width 12.5 % (11.5-14.5); Segmented Neutrophils % 65.1 %
[2022-02-03] MEDS ORDERED: predniSONE 20 MG TABLET PO ONE (13:44)
[2022-02-03] MEDS: Ipratropium/Albuterol Neb 3 ML IH PRN ×3 (13:50→14:48)
[2022-02-03 13:57] LABS: BUN/Creatinine Ratio 17 (6-26); Blood Urea Nitrogen 20 mg/dL (8-23); Calcium 9.4 mg/dL (8.6-10.3); Carbon Dioxide 28 mEq/L (23-29); Chloride 108 mEq/L (98-107); Glucose 121 mg/dL (70-105); Osmolality,Calculated 298 (280-300); Potassium 4.3 mEq/L (3.5-5.1); Sodium 142 mEq/L (136-145); Troponin I < 0.03 ng/mL (< 0.04)
[2022-02-03 14:11] LABS: VBG HCO3 29 mEq/L (21-27); VBG PCO2 64 mmHg (41-51); VBG PH 7.27 pH Units (7.32-7.42); VBG PO2 105 mmHg (25-50)
[2022-02-03 14:14] LABS: Activated Partial Thrombo Time 33.1 Seconds (26.0-36.0); Prothrombin Time 10.6 Seconds (9.4-12.1)
[2022-02-03] MEDS ORDERED: Iopamidol - 370 500 ML MLS IVP ONE (14:17)
[2022-02-03 15:21] LABS: VBG HCO3 28 mEq/L (21-27); VBG PCO2 56 mmHg (41-51); VBG PH 7.31 pH Units (7.32-7.42); VBG PO2 102 mmHg (25-50)
[2022-02-03] MEDS ORDERED: Albuterol 2.5 MG/3 ML NEBULIZER IH PRN (21:03)
[2022-02-03] MEDS ORDERED: Nitroglycerin 0.4 MG TAB.SUBL SL PRN (21:07)
[2022-02-03] MEDS ORDERED: Morphine Sulfate 2 MG/ML SYRINGE IVP PRN (21:07)
[2022-02-03] MEDS ORDERED: Ondansetron 4 MG/2 ML VIAL IVP PRN (21:09)
[2022-02-03] MEDS ORDERED: Acetaminophen 325 MG TABLET PO PRN (21:09)
[2022-02-03] MEDS ORDERED: Naloxone 0.4 MG/ML INJ IVP PRN (21:09)
[2022-02-03] MEDS ORDERED: QUEtiapine Fumarate 25 MG TABLET PO SCH (21:45)
[2022-02-03] MEDS: *HR* Heparin 5,000 UNIT/ML VIAL SQ SCH (21:56)
[2022-02-04 02:22] LABS: BUN/Creatinine Ratio 16 (6-26); Blood Urea Nitrogen 16 mg/dL (8-23); Calcium 8.9 mg/dL (8.6-10.3); Carbon Dioxide 28 mEq/L (23-29); Chloride 106 mEq/L (98-107); Chol/HDL Ratio 5.6 (0-4.9); Cholesterol 152 mg/dL (< 200); Glucose 268 mg/dL (70-105); HDL Cholesterol 27 mg/dL (40-59); LDL Cholesterol,Calculated 89 mg/dL (< 100); Magnesium 1.8 mg/dL (1.6-2.6); Osmolality,Calculated 301 (280-300); Potassium 3.8 mEq/L (3.5-5.1); Sodium 140 mEq/L (136-145); Triglycerides 179 mg/dL (< 150)
[2022-02-04 02:25] LABS: Hematocrit 38.1 % (35.3-44.9); Hemoglobin 12.4 g/dL (11.5-15.4); Mean Corpuscular HGB Conc 32.5 g/dL (31.6-35.5); Mean Platelet Volume 11.6 fL (9.4-12.4); Platelet Count 161 K/mcL (140-400); Red Blood Count 4.14 M/mcL (3.82-4.97); Red Cell Distribution Width 12.2 % (11.5-14.5); White Blood Count 6.5 K/mcL (4.3-11.1)
[2022-02-04 02:30] LABS: Troponin I < 0.03 ng/mL (< 0.04)
[2022-02-04 02:37] LABS: Thyroid Stimulating Hormone 0.356 mcIU/mL (0.340-5.600)
[2022-02-04 02:47] LABS: Folate 19.6 ng/mL (3.0-16.0)
[2022-02-04 04:42] VITALS: TEMP 97.8
[2022-02-04] MEDS: *HR* Heparin 5,000 UNIT/ML VIAL SQ SCH (05:36)
[2022-02-04] MEDS ORDERED: Dextrose Gel 15 GM/37.5 ML TUBE PO PRN ×2 (06:38)
[2022-02-04] MEDS ORDERED: D5% in Water 1,000 ML IVC PRN (06:38)
[2022-02-04] MEDS ORDERED: *HR* Dextrose 50 % in Water (Syg) 50 ML SYRINGE IVP PRN (06:38)
[2022-02-04 08:54] VITALS: PULSE 72; O2SAT 98
[2022-02-04] MEDS ORDERED: lisinopriL 10 MG TABLET PO SCH (09:00)
[2022-02-04] MEDS ORDERED: carvediloL 6.25 MG TABLET PO SCH (09:00)
[2022-02-04] MEDS ORDERED: tiZANidine 4 MG TABLET PO SCH (09:00)
[2022-02-04] MEDS ORDERED: Aspirin Enteric Coated 81 MG Tablet PO SCH (09:00)
[2022-02-04] MEDS ORDERED: Morphine Sulfate ER (12 HR) 30 MG TABLET.ER PO SCH (09:15)
[2022-02-04 09:40] LABS: Estimated Average Glucose 134 mg/dl; Hemoglobin A1C 6.3 %
[2022-02-04 10:15] VITALS: BP 155/77
[2022-02-04] MEDS ORDERED: Insulin LISPRO 300 UNITS/3 ML VIAL SUBQ SCH (12:00)
[2022-02-04] MEDS ORDERED: QUEtiapine Fumarate 25 MG TABLET PO SCH (21:00)
[2022-02-07] MEDS ORDERED: Ergocalciferol (VIT D2) 50,000 UNIT (1.25MG) CAP PO SCH (12:00)
== END 2022-02-04 10:50 | disposition home or self-care (01) ==
LOC: 3BNU 12:33 → EMEROOARM 12:33 → 3BNU 20:30
PROVIDERS: ADMIT Student in an Organized Health Care Education/Training Program; ATTEND Student in an Organized Health Care Education/Training Program